=== PATIENT | male | born 1960 | race Caucasian/White ===

== ENCOUNTER 2018-02-24 10:12 | Inpatient (IN) | payer MEDICAID ==
[2018-02-24] MEDS ORDERED: Sodium Chloride 0.9% 2.5 ML Syringe FLUSH PRN (10:21)
[2018-02-24] MEDS ORDERED: Sodium Chloride 0.9% 10 ML Syringe FLUSH PRN (10:21)
[2018-02-24] MEDS ORDERED: MVI, Adult with Vitamin K 10 ML, Thiamine 100 MG, Folic Acid 1 MG in Sodium Chloride 0.... IV ONE ×4 (10:24)
--- NOTE | 2018-02-24 10:39 | CR ---
EXAMINATION: Portable chest radiograph. HISTORY: Shortness of breath. FINDINGS: The trachea is midline. The cardiomediastinal silhouette is within normal limits. There is a moderate to large right pleural effusion. Mild interstitial prominence bilaterally most notable within the apices. Osseous structures appear unremarkable. IMPRESSION: 1. Moderate to large right pleural effusion. 2. An underlying infectious process is also not excluded.
[2018-02-24] MEDS ORDERED: Magnesium Sulfate/Water 2 GM in Premix Bag 1 BAG IV ONE (10:40)
[2018-02-24] MEDS ORDERED: Nicotine 14 MG/24 Hr Patch TRDERM ONE (11:25)
[2018-02-24 11:33] LABS: CHLORIDE,CL 84 mmol/L (98-107)
[2018-02-24 11:34] LABS: SODIUM,NA 117 mmol/L (136-148)
--- NOTE | 2018-02-24 11:34 | EDM.PDOC ---
ED HPI GENERAL MEDICAL PROBLEM - General Chief Complaint: Respiratory Problem Stated Complaint: DIFF BREATHING Time Seen by Provider: 02/24/18 10:16 Source of Information: Reports: Patient, Family History Limitations: Reports: No Limitations - History of Present Illness INITIAL COMMENTS - FREE TEXT/NARRATIVE: History of present illness: []Patient was brought in by EMS and his sister complaining of inability to walk secondary to weakness, shortness of breath, cough, and inability to eat. Patient is an alcoholic. He states he has not seen a primary doctor in years. Review of systems: As per history of present illness and below otherwise all systems reviewed and negative. Past medical history: As per history of present illness and as reviewed below otherwise noncontributory. Surgical history: As per history of present illness and as reviewed below otherwise noncontributory. Social history: No reported history of drug or alcohol abuse. Family history: As per history of present illness and as reviewed below otherwise noncontributory. Physical exam: General: Well developed, thin, cachectic, pale HEENT: Atraumatic, normocephalic, pupils reactive, negative for conjunctival pallor or scleral icterus, mucous membranes dry, lips cracked throat clear, neck supple, nontender, trachea midline. Lungs: Rhonchi bilaterally, no respiratory distress Heart: S1S2, regular, negative for clicks, rubs, or JVD. Abdomen: NABS, Soft, nondistended, nontender. Negative for masses or hepatosplenomegaly. Negative for costovertebral tenderness. Pelvis: Stable nontender. Genitourinary: Deferred. Rectal: Deferred. Extremities: Atraumatic, negative for cords or calf pain. Neurovascular unremarkable. Neuro: Awake, alert, oriented. Cranial nerves II through XII unremarkable. Cerebellum unremarkable. Motor and sensory unremarkable throughout. Exam nonfocal. Skin:warm and dry, poor turgor Diagnostics: CBC, EKG, chemistry, chest x-ray, lactate, alcohol level, lipase, magnesium, phosphorus, UA Therapeutics: IV hydration ED Course: Unremarkable Impression: Hyponatremia, dehydration, right pleural effusion, failure to thrive Prescriptions: None Plan: Admit to hospitalist service for correction of sodium levels, hydration and further evaluation of pleural effusion Definitive disposition and diagnosis as appropriate pending reevaluation and review of above. Right Back Pain Score (Numeric/FACES): 0 - Related Data Allergies Allergy/AdvReac Type Severity Reaction Status Date / Time No Known Allergies Allergy Verified 02/24/18 10:20 Home Meds: Home Meds Albuterol [Ventolin HFA] 2 puff Q4HR 02/24/18 [History] Fluticasone/Salmeterol [Advair 250-50 Diskus] 1 puff BID 02/24/18 [History] Ipratropium/Albuterol Sulfate [Iprat-Albut 0.5-3(2.5) MG/3 ML] 1 ampule Q6HR [History] Past Medical History - Past Health History Medical/Surgical History: Denies Medical/Surgical History Respiratory History: Reports: COPD Social & Family History - Family History Family Medical History: Noncontributory - Tobacco Use Smoking Status *Q: Current Every Day Smoker Years of Tobacco use: 45 Packs/Tins Daily: 3 - Recreational Drug Use Recreational Drug Use: No ED ROS GENERAL - Review of Systems Review Of Systems: ROS reveals no pertinent complaints other than HPI. ED EXAM, GENERAL - Physical Exam Exam: See Below (See history of present illness) Course - Vital Signs Last Recorded V/S: Last Vital Signs Temp 98.6 F 02/24/18 11:55 Pulse 86 02/24/18 11:55 Resp 24 H 02/24/18 11:55 BP 129/89 02/24/18 11:55 Pulse Ox 93 L 02/24/18 11:55 - Orders/Labs/Meds Orders: Active Orders 24 hr Category Date Time Status Cardiac Monitoring [RC] . DIRECTED Care 02/24/18 10:22 Active EKG Documentation Completion [RC] STAT Care 02/24/18 10:21 Active CULTURE BLOOD [BC] Stat Lab 02/24/18 10:35 Received CULTURE BLOOD [BC] Stat Lab 02/24/18 10:42 Received CULTURE URINE [RM] Routine Lab 02/24/18 13:19 Ordered Sodium Chloride 0.9% [Saline Flush] Med 02/24/18 10:21 Active 10 ml FLUSH ASDIRECTED PRN Sodium Chloride 0.9% [Saline Flush] Med 02/24/18 10:21 Active 2.5 ml FLUSH ASDIRECTED PRN Blood Culture x2 Reflex Set [OM.PC] Stat Oth 02/24/18 10:22 Ordered Saline Lock Insert [OM.PC] Stat Oth 02/24/18 10:21 Ordered Medication Orders Acetaminophen (Tylenol) 650 mg PO Q4H PRN PRN Reason: Pain (mild 1-3) Albuterol/Ipratropium (Duoneb 3.0-0.5 Mg/3 Ml) 3 ml NEB Q4HRRT PRN PRN Reason: Shortness Of Breath/wheezing Docusate Sodium (Colace) 100 mg PO BID PRN PRN Reason: Constipation Folic Acid (Folic Acid) 1 mg PO BEDTIME RAFAL Sodium Chloride (Normal Saline) 1,000 mls @ 100 mls/hr IV ASDIRECTED RAFAL Lorazepam (Ativan) 0 mg IVPUSH Q4H PRN; Protocol PRN Reason: CIWAA Morphine Sulfate (Morphine) 2 mg IVPUSH Q2H PRN PRN Reason: Pain (severe 7-10) Nicotine (Habitrol) 21 mg TRDERM DAILY RAFAL Ondansetron HCl (Zofran) 4 mg IVPUSH Q4H PRN PRN Reason: Nausea Pantoprazole Sodium (Protonix Iv) 40 mg IVPUSH Q24H RAFAL Fluticasone/Salmeterol (Advair Diskus 250-50) 1 puff INH BID RAFAL Sodium Chloride (Saline Flush) 10 ml FLUSH ASDIRECTED PRN PRN Reason: Keep Vein Open Sodium Chloride (Saline Flush) 2.5 ml FLUSH ASDIRECTED PRN PRN Reason: Keep Vein Open Thiamine HCl (Vitamin B-1) 100 mg PO BEDTIME [facility] Labs: Laboratory Tests 02/24/18 02/24/18 02/24/18 Range/Units 10:35 10:35 10:35 WBC 8.86 (4.0-11.0) K/uL RBC 3.43 L (4.50-5.90) M/uL Hgb 11.3 L (13.0-17.0) g/dL Hct 32.1 L (38.0-50.0) % MCV 93.6 (80.0-98.0) fL MCH 32.9 H (27.0-32.0) pg MCHC 35.2 (31.0-37.0) g/dL RDW Std Deviation 46.2 (28.0-62.0) fl RDW Coeff of Sage 14 (11.0-15.0) % Plt Count 172 (150-400) K/uL MPV 10.00 (7.40-12.00) fL Neut % (Auto) 82.7 H (48.0-80.0) % Lymph % (Auto) 10.5 L (16.0-40.0) % [place] % (Auto) 5.9 (0.0-15.0) % Eos % (Auto) 0.7 (0.0-7.0) % Baso % (Auto) 0.2 (0.0-1.5) % Neut # (Auto) 7.3 H (1.4-5.7) K/uL Lymph # (Auto) 0.9 (0.6-2.4) K/uL [place] # (Auto) 0.5 (0.0-0.8) K/uL Eos # (Auto) 0.1 (0.0-0.7) K/uL Baso # (Auto) 0.0 (0.0-0.1) K/uL Nucleated RBC % 0.0 /100WBC Nucleated RBCs # 0 K/uL INR APTT (18.6-31.3) SEC Lactate (0.20-2.00) mmol/L Sodium 117 L* (136-148) mmol/L Potassium 3.8 (3.5-5.1) mmol/L Chloride 84 L (98-107) mmol/L Carbon Dioxide 20.9 L (21.0-32.0) mmol/L BUN 6 L (7.0-18.0) mg/dL Creatinine 0.6 L (0.8-1.3) mg/dL Est Cr Clr Drug Dosing TNP Estimated GFR (MDRD) > 60.0 ml/min Glucose 103 (74-106) mg/dL Calcium 8.1 L (8.5-10.1) mg/dL Phosphorus (2.6-4.7) mg/dL Magnesium (1.8-2.4) mg/dL Total Bilirubin 0.8 (0.2-1.0) mg/dL AST 55 H (15-37) IU/L ALT 50 (14-63) IU/L Alkaline Phosphatase 62 (46-116) U/L Creatine Kinase (26-308) U/L B-Natriuretic Peptide (<100) PG/ML Total Protein 5.4 L (6.4-8.2) g/dL Albumin 2.0 L (3.4-5.0) g/dL Globulin 3.4 (2.6-4.0) g/dL Albumin/Globulin Ratio 0.6 L (0.9-1.6) Lipase 163 (73-393) U/L Ethyl Alcohol mg/dL 02/24/18 02/24/18 02/24/18 Range/Units 10:35 10:35 10:35 WBC (4.0-11.0) K/uL RBC (4.50-5.90) M/uL Hgb (13.0-17.0) g/dL Hct (38.0-50.0) % MCV (80.0-98.0) fL MCH (27.0-32.0) pg MCHC (31.0-37.0) g/dL RDW Std Deviation (28.0-62.0) fl RDW Coeff of Sage (11.0-15.0) % Plt Count (150-400) K/uL MPV (7.40-12.00) fL Neut % (Auto) (48.0-80.0) % Lymph % (Auto) (16.0-40.0) % [place] % (Auto) (0.0-15.0) % Eos % (Auto) (0.0-7.0) % Baso % (Auto) (0.0-1.5) % Neut # (Auto) (1.4-5.7) K/uL Lymph # (Auto) (0.6-2.4) K/uL [place] # (Auto) (0.0-0.8) K/uL Eos # (Auto) (0.0-0.7) K/uL Baso # (Auto) (0.0-0.1) K/uL Nucleated RBC % /100WBC Nucleated RBCs # K/uL INR APTT (18.6-31.3) SEC Lactate (0.20-2.00) mmol/L Sodium (136-148) mmol/L Potassium (3.5-5.1) mmol/L Chloride (98-107) mmol/L Carbon Dioxide (21.0-32.0) mmol/L BUN (7.0-18.0) mg/dL Creatinine (0.8-1.3) mg/dL Est Cr Clr Drug Dosing Estimated GFR (MDRD) ml/min Glucose (74-106) mg/dL Calcium (8.5-10.1) mg/dL Phosphorus 3.1 (2.6-4.7) mg/dL Magnesium 1.9 (1.8-2.4) mg/dL Total Bilirubin (0.2-1.0) mg/dL AST (15-37) IU/L ALT (14-63) IU/L Alkaline Phosphatase (46-116) U/L Creatine Kinase (26-308) U/L B-Natriuretic Peptide 114 H (<100) PG/ML Total Protein (6.4-8.2) g/dL Albumin (3.4-5.0) g/dL Globulin (2.6-4.0) g/dL Albumin/Globulin Ratio (0.9-1.6) Lipase (73-393) U/L Ethyl Alcohol < 3.0 mg/dL 02/24/18 02/24/18 02/24/18 Range/Units 10:35 10:35 10:35 WBC (4.0-11.0) K/uL RBC (4.50-5.90) M/uL Hgb (13.0-17.0) g/dL Hct (38.0-50.0) % MCV (80.0-98.0) fL MCH (27.0-32.0) pg MCHC (31.0-37.0) g/dL RDW Std Deviation (28.0-62.0) fl RDW Coeff of Sage (11.0-15.0) % Plt Count (150-400) K/uL MPV (7.40-12.00) fL Neut % (Auto) (48.0-80.0) % Lymph % (Auto) (16.0-40.0) % [place] % (Auto) (0.0-15.0) % Eos % (Auto) (0.0-7.0) % Baso % (Auto) (0.0-1.5) % Neut # (Auto) (1.4-5.7) K/uL Lymph # (Auto) (0.6-2.4) K/uL [place] # (Auto) (0.0-0.8) K/uL Eos # (Auto) (0.0-0.7) K/uL Baso # (Auto) (0.0-0.1) K/uL Nucleated RBC % /100WBC Nucleated RBCs # K/uL INR 1.19 APTT 26.8 (18.6-31.3) SEC Lactate (0.20-2.00) mmol/L Sodium (136-148) mmol/L Potassium (3.5-5.1) mmol/L Chloride (98-107) mmol/L Carbon Dioxide (21.0-32.0) mmol/L BUN (7.0-18.0) mg/dL Creatinine (0.8-1.3) mg/dL Est Cr Clr Drug Dosing Estimated GFR (MDRD) ml/min Glucose (74-106) mg/dL Calcium (8.5-10.1) mg/dL Phosphorus (2.6-4.7) mg/dL Magnesium (1.8-2.4) mg/dL Total Bilirubin (0.2-1.0) mg/dL AST (15-37) IU/L ALT (14-63) IU/L Alkaline Phosphatase (46-116) U/L Creatine Kinase 64 (26-308) U/L B-Natriuretic Peptide (<100) PG/ML Total Protein (6.4-8.2) g/dL Albumin (3.4-5.0) g/dL Globulin (2.6-4.0) g/dL Albumin/Globulin Ratio (0.9-1.6) Lipase (73-393) U/L Ethyl Alcohol mg/dL Meds: Medications Generic Name Dose Route Start Last Admin Trade Name Freq PRN Reason Stop Dose Admin Acetaminophen 650 mg 02/24/18 12:40 Tylenol PO Q4H PRN Pain (mild 1-3) Albuterol/Ipratropium 3 ml 02/24/18 12:41 Duoneb 3.0-0.5 Mg/3 Ml NEB Q4HRRT PRN Shortness Of Breath/wheezing Docusate Sodium 100 mg 02/24/18 12:41 Colace PO BID PRN Constipation Folic Acid 1 mg 02/24/18 21:00 Folic Acid PO BEDTIME RAFAL Sodium Chloride 1,000 mls @ 100 mls/hr 02/24/18 12:45 Normal Saline IV ASDIRECTED RAFAL Lorazepam 0 mg 02/24/18 13:58 Ativan IVPUSH Q4H PRN CIWAA Protocol Morphine Sulfate 2 mg 02/24/18 12:40 Morphine IVPUSH Q2H PRN Pain (severe 7-10) Nicotine 21 mg 02/25/18 09:00 Habitrol TRDERM DAILY RAFAL Ondansetron HCl 4 mg 02/24/18 12:41 Zofran IVPUSH Q4H PRN Nausea Pantoprazole Sodium 40 mg 02/24/18 15:15 Protonix Iv IVPUSH Q24H RAFAL Fluticasone/Salmeterol 1 puff 02/24/18 21:00 Advair Diskus 250-50 INH BID RAFAL Sodium Chloride 10 ml 02/24/18 10:21 Saline Flush FLUSH ASDIRECTED PRN Keep Vein Open Sodium Chloride 2.5 ml 02/24/18 10:21 Saline Flush FLUSH ASDIRECTED PRN Keep Vein Open Thiamine HCl 100 mg 02/24/18 21:00 Vitamin B-1 PO BEDTIME RAFAL Discontinued Medications Generic Name Dose Route Start Last Admin Trade Name Freq PRN Reason Stop Dose Admin Multivitamins/Minerals 10 ml/ 1,011.2 mls @ 999 mls/hr 02/24/18 10:24 11:06 Thiamine HCl 100 mg/ Folic IV 02/24/18 11:24 999 mls/hr Acid 1 mg/ Sodium Chloride ONETIME ONE Administration Magnesium Sulfate 2 gm/ Premix 50 mls @ 25 mls/hr 02/24/18 10:40 02/24/18 11: 06 IV 02/24/18 12:39 25 mls/hr ONETIME ONE Administration Nicotine 14 mg 02/24/18 11:25 02/24/18 11:34 Habitrol TRDERM 02/24/18 11:26 14 mg ONETIME ONE Administration Potassium Chloride 40 meq 02/24/18 14:56 Klor-Con M20 PO 02/24/18 14:57 ONETIME ONE Departure - Departure Time of Disposition: 15:12 Disposition: Admitted As Inpatient 64 Condition: Fair Clinical Impression: Hyponatremia, Dehydration, Recurrent right pleural effusion, Failure to thrive - Discharge Information - My Orders Last 24 Hours: My Active Orders 02/24/18 10:21 EKG Documentation Completion [RC] STAT Sodium Chloride 0.9% [Saline Flush] 10 ml FLUSH ASDIRECTED PRN Sodium Chloride 0.9% [Saline Flush] 2.5 ml FLUSH ASDIRECTED PRN Saline Lock Insert [OM.PC] Stat 02/24/18 10:22 Cardiac Monitoring [RC] . DIRECTED Blood Culture x2 Reflex Set [OM.PC] Stat 02/24/18 10:35 CULTURE BLOOD [BC] Stat 02/24/18 10:42 CULTURE BLOOD [BC] Stat 02/24/18 13:19 CULTURE URINE [RM] Routine - Assessment/Plan Last 24 Hours: My Active Orders 02/24/18 10:21 EKG Documentation Completion [RC] STAT Sodium Chloride 0.9% [Saline Flush] 10 ml FLUSH ASDIRECTED PRN Sodium Chloride 0.9% [Saline Flush] 2.5 ml FLUSH ASDIRECTED PRN Saline Lock Insert [OM.PC] Stat 02/24/18 10:22 Cardiac Monitoring [RC] . DIRECTED Blood Culture x2 Reflex Set [OM.PC] Stat 02/24/18 10:35 CULTURE BLOOD [BC] Stat 02/24/18 10:42 CULTURE BLOOD [BC] Stat 02/24/18 13:19 CULTURE URINE [RM] Routine
--- NOTE | 2018-02-24 12:30 | PCM.HP ---
H&P History of Present Illness - General Date of Service: 02/24/18 Admit Problem/Dx: Admission Diagnosis/Problem Admission Diagnosis/Problem Hyponatremia Source of Information: Patient, Family (Sisters at bedside) History Limitations: Reports: No Limitations - History of Present Illness Initial Comments - Free Text/Narative: This 57 year old male with pmh of DVT, COPD, tobacco use and alcohol abuse presented to the ED today via EMS after his sister found him on the floor. He reports he was on the floor overnight because he was was so weak that he was unable to walk or get up. He reports he has been short of breath for "awhile", months possibly. He has not been eating over the last week and has not eaten much over the last month or two either, per history of sisters at bedside. He reports right sided chest pain when he coughs. He has productive cough with yellow phlegm, no blood. He Denies abdominal pain, urinary concerns. Does report diarrhea, "all the time". He reports some ankle and feet swelling. NO headache. No confusion noted per family. He has smoked for 50+ years and currently smokes 2 ppd. Drinks 5-7 beers daily. In the ED, CBC WNL. Na 117, Cl 84, Bicarb 20.9, Phosphorus 3.1, Mg 1.9. Bili 0.8. He was noted to be dyspneic, but satting 98% on RA. CXR obtained which revealed moderate to large pleural effusion with possible underlying infectious process. Admission recommended for hyponatremia, failure to thrive and pleural effusion. Right Back Pain Score (Numeric/FACES): 0 - Related Data Allergies/Adverse Reactions: Allergies Allergy/AdvReac Type Severity Reaction Status Date / Time No Known Allergies Allergy Verified 02/24/18 10:20 Home Medications: Home Meds Albuterol [Ventolin HFA] 2 puff Q4HR 02/24/18 [History] Fluticasone/Salmeterol [Advair 250-50 Diskus] 1 puff BID 02/24/18 [History] Ipratropium/Albuterol Sulfate [Iprat-Albut 0.5-3(2.5) MG/3 ML] 1 ampule Q6HR [History] Past Medical History - Past Health History Medical/Surgical History: Denies Medical/Surgical History Respiratory History: Reports: COPD Gastrointestinal History: Reports: None. Denies: GERD, GI Bleed Musculoskeletal History: Reports: Fracture (ankle) Psychiatric History: Reports: Addiction Oncologic (Cancer) History: Reports: None - Infectious Disease History Infectious Disease History: Reports: None - Past Surgical History Musculoskeletal Surgical History: Reports: Other (See Below) (ankle fracture, ORIF) Social & Family History - Family History Family Medical History: Noncontributory - Tobacco Use Smoking Status *Q: Current Every Day Smoker Years of Tobacco use: 45 Packs/Tins Daily: 2 Smoking Cessation Information Provided To Patient: Yes (would like prescription for nicotine patches) - Alcohol Use Alcohol Use History: Yes Days Per Week of Alcohol Use: 7 Number of Drinks Per Day: 7 Total Drinks Per Week: 49 Alcohol Use Frequency: Daily - Recreational Drug Use Recreational Drug Use: No - Living Situation & Occupation Living situation: Reports: Single, with Family (sister) Occupation: Disabled H&P Review of Systems - Review of Systems: Review Of Systems: See Below General: Reports: Malaise, Weakness, Decreased Appetite, Weight Loss (he feels he hasn't lost, but sisters report he has lost a lot of weight). Denies: Fever , Chills HEENT: Reports: No Symptoms. Denies: Headaches, Sinus Congestion, Sore Throat, Vertigo Pulmonary: Reports: Shortness of Breath, Pleuritic Chest Pain, Cough, Sputum. Denies: Hemoptysis Cardiovascular: Reports: Dyspnea on Exertion, Lightheadedness. Denies: Chest Pain Gastrointestinal: Reports: Anorexia, Diarrhea. Denies: Abdominal Pain, Black Stool, Bloody Stool, Nausea, Vomiting Genitourinary: Reports: No Symptoms. Denies: Dysuria, Frequency, Burning, Pain Musculoskeletal: Reports: Back Pain (R upper back) Skin: Reports: No Symptoms Psychiatric: Reports: No Symptoms Neurological: Reports: No Symptoms Hematologic/Lymphatic: Reports: No Symptoms Immunologic: Reports: No Symptoms Exam - Exam Exam: See Below - Vital Signs Vital Signs: Last Vital Signs Temp 98.6 F 02/24/18 11:55 Pulse 86 02/24/18 11:55 Resp 24 H 02/24/18 11:55 BP 129/89 02/24/18 11:55 Pulse Ox 93 L 02/24/18 11:55 - Exam Quality Assessment: Supplemental Oxygen General: Alert, Oriented, Cooperative, Other (older than stated age, cachectic in appearance and unkept.) HEENT: Conjunctiva Clear, Posterior Pharynx Clear, Pupils Equal, Other (poor dentition). No: Mucosa Moist & [place] (dry) Neck: Supple, Trachea Midline, Full Range of Motion Lungs: Decreased Breath Sounds (R side), Rhonchi (throughout) Cardiovascular: Regular Rate, Regular Rhythm, Normal S1, Normal S2. No: Systolic Murmur GI/Abdominal Exam: Normal Bowel Sounds, Soft, Non-Tender Back Exam: Normal Inspection, Full Range of Motion Extremities: Normal Inspection, Normal Range of Motion, Non-Tender, No Pedal Edema Skin: Warm, Dry Neurological: Cranial Nerves Intact Neuro Extensive - Mental Status: Alert, Oriented x3, Normal Mood/Affect, Normal Cognition Psychiatric: Alert, Normal Affect, Normal Mood, Agitated (easily agitated with questioning process.) - Patient Data Lab Results Last 24 hrs: Laboratory Results - last 24 hr 02/24/18 02/24/18 02/24/18 Range/Units 10:35 10:35 10:35 WBC 8.86 (4.0-11.0) K/uL RBC 3.43 L (4.50-5.90) M/uL Hgb 11.3 L (13.0-17.0) g/dL Hct 32.1 L (38.0-50.0) % MCV 93.6 (80.0-98.0) fL MCH 32.9 H (27.0-32.0) pg MCHC 35.2 (31.0-37.0) g/dL RDW Std Deviation 46.2 (28.0-62.0) fl RDW Coeff of Sage 14 (11.0-15.0) % Plt Count 172 (150-400) K/uL MPV 10.00 (7.40-12.00) fL Neut % (Auto) 82.7 H (48.0-80.0) % Lymph % (Auto) 10.5 L (16.0-40.0) % Love % (Auto) 5.9 (0.0-15.0) % Eos % (Auto) 0.7 (0.0-7.0) % Baso % (Auto) 0.2 (0.0-1.5) % Neut # (Auto) 7.3 H (1.4-5.7) K/uL Lymph # (Auto) 0.9 (0.6-2.4) K/uL Love # (Auto) 0.5 (0.0-0.8) K/uL Eos # (Auto) 0.1 (0.0-0.7) K/uL Baso # (Auto) 0.0 (0.0-0.1) K/uL Nucleated RBC % 0.0 /100WBC Nucleated RBCs # 0 K/uL INR APTT (18.6-31.3) SEC Lactate (0.20-2.00) mmol/L Sodium 117 L* (136-148) mmol/L Potassium 3.8 (3.5-5.1) mmol/L Chloride 84 L (98-107) mmol/L Carbon Dioxide 20.9 L (21.0-32.0) mmol/L BUN 6 L (7.0-18.0) mg/dL Creatinine 0.6 L (0.8-1.3) mg/dL Est Cr Clr Drug Dosing TNP Estimated GFR (MDRD) > 60.0 ml/min Glucose 103 (74-106) mg/dL Calcium 8.1 L (8.5-10.1) mg/dL Phosphorus (2.6-4.7) mg/dL Magnesium (1.8-2.4) mg/dL Total Bilirubin 0.8 (0.2-1.0) mg/dL AST 55 H (15-37) IU/L ALT 50 (14-63) IU/L Alkaline Phosphatase 62 (46-116) U/L B-Natriuretic Peptide (<100) PG/ML Total Protein 5.4 L (6.4-8.2) g/dL Albumin 2.0 L (3.4-5.0) g/dL Globulin 3.4 (2.6-4.0) g/dL Albumin/Globulin Ratio 0.6 L (0.9-1.6) Lipase 163 (73-393) U/L Ethyl Alcohol mg/dL 02/24/18 02/24/18 02/24/18 Range/Units 10:35 10:35 10:35 WBC (4.0-11.0) K/uL RBC (4.50-5.90) M/uL Hgb (13.0-17.0) g/dL Hct (38.0-50.0) % MCV (80.0-98.0) fL MCH (27.0-32.0) pg MCHC (31.0-37.0) g/dL RDW Std Deviation (28.0-62.0) fl RDW Coeff of Sage (11.0-15.0) % Plt Count (150-400) K/uL MPV (7.40-12.00) fL Neut % (Auto) (48.0-80.0) % Lymph % (Auto) (16.0-40.0) % Love % (Auto) (0.0-15.0) % Eos % (Auto) (0.0-7.0) % Baso % (Auto) (0.0-1.5) % Neut # (Auto) (1.4-5.7) K/uL Lymph # (Auto) (0.6-2.4) K/uL Love # (Auto) (0.0-0.8) K/uL Eos # (Auto) (0.0-0.7) K/uL Baso # (Auto) (0.0-0.1) K/uL Nucleated RBC % /100WBC Nucleated RBCs # K/uL INR APTT (18.6-31.3) SEC Lactate (0.20-2.00) mmol/L Sodium (136-148) mmol/L Potassium (3.5-5.1) mmol/L Chloride (98-107) mmol/L Carbon Dioxide (21.0-32.0) mmol/L BUN (7.0-18.0) mg/dL Creatinine (0.8-1.3) mg/dL Est Cr Clr Drug Dosing Estimated GFR (MDRD) ml/min Glucose (74-106) mg/dL Calcium (8.5-10.1) mg/dL Phosphorus 3.1 (2.6-4.7) mg/dL Magnesium 1.9 (1.8-2.4) mg/dL Total Bilirubin (0.2-1.0) mg/dL AST (15-37) IU/L ALT (14-63) IU/L Alkaline Phosphatase (46-116) U/L B-Natriuretic Peptide 114 H (<100) PG/ML Total Protein (6.4-8.2) g/dL Albumin (3.4-5.0) g/dL Globulin (2.6-4.0) g/dL Albumin/Globulin Ratio (0.9-1.6) Lipase (73-393) U/L Ethyl Alcohol < 3.0 mg/dL 02/24/18 02/24/18 Range/Units 10:35 10:35 WBC (4.0-11.0) K/uL RBC (4.50-5.90) M/uL Hgb (13.0-17.0) g/dL Hct (38.0-50.0) % MCV (80.0-98.0) fL MCH (27.0-32.0) pg MCHC (31.0-37.0) g/dL RDW Std Deviation (28.0-62.0) fl RDW Coeff of Sage (11.0-15.0) % Plt Count (150-400) K/uL MPV (7.40-12.00) fL Neut % (Auto) (48.0-80.0) % Lymph % (Auto) (16.0-40.0) % Love % (Auto) (0.0-15.0) % Eos % (Auto) (0.0-7.0) % Baso % (Auto) (0.0-1.5) % Neut # (Auto) (1.4-5.7) K/uL Lymph # (Auto) (0.6-2.4) K/uL Love # (Auto) (0.0-0.8) K/uL Eos # (Auto) (0.0-0.7) K/uL Baso # (Auto) (0.0-0.1) K/uL Nucleated RBC % /100WBC Nucleated RBCs # K/uL INR 1.19 APTT 26.8 (18.6-31.3) SEC Lactate (0.20-2.00) mmol/L Sodium (136-148) mmol/L Potassium (3.5-5.1) mmol/L Chloride (98-107) mmol/L Carbon Dioxide (21.0-32.0) mmol/L BUN (7.0-18.0) mg/dL Creatinine (0.8-1.3) mg/dL Est Cr Clr Drug Dosing Estimated GFR (MDRD) ml/min Glucose (74-106) mg/dL Calcium (8.5-10.1) mg/dL Phosphorus (2.6-4.7) mg/dL Magnesium (1.8-2.4) mg/dL Total Bilirubin (0.2-1.0) mg/dL AST (15-37) IU/L ALT (14-63) IU/L Alkaline Phosphatase (46-116) U/L B-Natriuretic Peptide (<100) PG/ML Total Protein (6.4-8.2) g/dL Albumin (3.4-5.0) g/dL Globulin (2.6-4.0) g/dL Albumin/Globulin Ratio (0.9-1.6) Lipase (73-393) U/L Ethyl Alcohol mg/dL Result Diagrams: 02/24/18 10:35 02/24/18 10:35 *Q Meaningful Use (ADM) - VTE Risk Assess *Q Each Risk Factor Represents 1 Point: Age 41 - 59 years Total Score 1 Point Risk Factors: 1 Each Risk Factor Represents 2 Points: None Total Score 2 Point Risk Factors: 0 Each Risk Factor Represents 3 Points: History of DVT/PE Total Score 3 Point Risk Factors: 3 Each Risk Factor Represents 5 Points: None Total Score 5 Point Risk Factors: 0 Venous Thromboembolism Risk Factor Score *Q: 4 - Problem List (1) Hyponatremia SNOMED Code(s): 96403597 ICD Code: E87.1 - HYPO-OSMOLALITY AND HYPONATREMIA Status: Acute Current Visit: Yes (2) Pleural effusion SNOMED Code(s): 58271451 ICD Code: J90 - PLEURAL EFFUSION, NOT ELSEWHERE CLASSIFIED Status: Acute Current Visit: Yes (3) Dyspnea SNOMED Code(s): 855206439 ICD Code: R06.00 - DYSPNEA, UNSPECIFIED Status: Acute Current Visit: Yes (4) Generalized weakness SNOMED Code(s): 14350789 ICD Code: R53.1 - WEAKNESS Status: Acute Current Visit: Yes (5) Protein malnutrition SNOMED Code(s): 204495493 ICD Code: E46 - UNSPECIFIED PROTEIN-CALORIE MALNUTRITION Status: Acute Current Visit: Yes (6) Failure to thrive in adult SNOMED Code(s): 180913363 ICD Code: R62.7 - ADULT FAILURE TO THRIVE Status: Acute Current Visit: Yes (7) Alcohol abuse SNOMED Code(s): 05071815 ICD Code: F10.10 - ALCOHOL ABUSE, UNCOMPLICATED Status: Chronic Current Visit: Yes (8) Hx of deep venous thrombosis SNOMED Code(s): 726662465 ICD Code: Z86.718 - PERSONAL HISTORY OF OTHER VENOUS THROMBOSIS AND EMBOLISM Status: Chronic Current Visit: Yes (9) COPD (chronic obstructive pulmonary disease) SNOMED Code(s): 33017722 ICD Code: J44.9 - CHRONIC OBSTRUCTIVE PULMONARY DISEASE, UNSPECIFIED Status : Chronic Current Visit: Yes (10) Tobacco abuse SNOMED Code(s): 141444975 ICD Code: Z72.0 - TOBACCO USE Status: Chronic Current Visit: Yes Problem List Initiated/Reviewed/Updated: Yes Orders Last 24hrs: Active Orders 24 hr Category Date Time Status Patient Status [ADT] Stat ADT 02/24/18 12:11 Active Cardiac Monitoring [RC] . DIRECTED Care 02/24/18 10:22 Active EKG Documentation Completion [RC] STAT Care 02/24/18 10:21 Active CPK [CREATINE KINASE,CK] [CHEM] Stat Lab 02/24/18 12:23 Ordered CULTURE BLOOD [BC] Stat Lab 02/24/18 10:35 Received CULTURE BLOOD [BC] Stat Lab 02/24/18 10:42 Received CULTURE URINE [RM] Routine Lab 02/24/18 10:23 Ordered UA W/MICROSCOPIC [URIN] Stat Lab 02/24/18 10:23 Ordered Magnesium Sulfate/Water [Magnesium Sulfate 2 GM in Med 02/24/18 10:40 Active Water 50 ML] 2 gm Premix Bag 1 bag IV ONETIME Sodium Chloride 0.9% [Saline Flush] Med 02/24/18 10:21 Active 10 ml FLUSH ASDIRECTED PRN Sodium Chloride 0.9% [Saline Flush] Med 02/24/18 10:21 Active 2.5 ml FLUSH ASDIRECTED PRN Blood Culture x2 Reflex Set [OM.PC] Stat Oth 02/24/18 10:22 Ordered Saline Lock Insert [OM.PC] Stat Oth 02/24/18 10:21 Ordered Medication Orders Magnesium Sulfate 2 gm/ Premix 50 mls @ 25 mls/hr IV ONETIME ONE Stop: 02/24/18 12:39 Last Admin: 02/24/18 11:06 Dose: 25 mls/hr Sodium Chloride (Saline Flush) 10 ml FLUSH ASDIRECTED PRN PRN Reason: Keep Vein Open Sodium Chloride (Saline Flush) 2.5 ml FLUSH ASDIRECTED PRN PRN Reason: Keep Vein Open Assessment/Plan Comment:: This 57 year old male admitted with R sided pleural effusion and hyponatremia 1. Pleural effusion: WIll have diagnostic and therapeutic thoracentesis. Will analyze fluid. Will also obtain Chest CT with contrast once pleural effusion is drained to further evaluate. concerned for malignant process due smoking history , CHF less likely. Will hold off on antibiotics currently, no definite infectious process noted. Continue to watch labs and pleural fluid. 2. Hyponatremia: Will check Na every 4 hours, slow NS infusion. Could be linked to alcoholism and poor oral intake or SIADH if malignancy is present. PT to evaluate and treat for weakness once hyponatremia resolves. 3. Alcohol abuse: Place on CIWAA protocol. Supplement with Folic acid and Thiamine daily. 4. Tobacco abuse: Nicotine patch, would like to quit and wants prescription for patch on discharge. 5. COPD: Reports no inhalers at home, but does have nebulizers. Continue Duoneb PRN. VTE prophylaxis: Nothing now due to thoracentesis ordered, once completed will start. Dispo: 3-4 days pending improvement
[2018-02-24] MEDS ORDERED: Acetaminophen 325 MG Tab PO PRN (12:40)
[2018-02-24] MEDS ORDERED: Docusate Sodium 100 MG Cap PO PRN (12:41)
[2018-02-24] MEDS ORDERED: Ondansetron 4 MG/2 ML SDV IVPUSH PRN (12:41)
[2018-02-24] MEDS ORDERED: Albuterol/Ipratropium 3.0-0.5 MG/3 ML Neb Soln NEB PRN (12:41)
[2018-02-24] MEDS ORDERED: Sodium Chloride 0.9% 1,000 ML IV SCH (12:45)
[2018-02-24] MEDS ORDERED: LORazepam 2 MG/ML SDV IVPUSH PRN (13:58)
[2018-02-24 14:40] LABS: CHLORIDE,CL 86 mmol/L (98-107)
[2018-02-24 14:41] LABS: SODIUM,NA 119 mmol/L (136-148)
[2018-02-24] MEDS ORDERED: Potassium Chloride 20 MEQ Tab.ER PO ONE (14:56)
[2018-02-24] MEDS ORDERED: Iopamidol 755 MG/ML 500 ML Multipack Bottle IVPUSH STA (15:49)
--- NOTE | 2018-02-24 16:05 | CT ---
EXAMINATION: CT chest with contrast HISTORY: Dyspnea, pleural effusion COMPARISON: Same day chest radiograph TECHNIQUE: Axial CT imaging obtained through the chest following the administration of 75 mL of Isovue-370. Coronal and sagittal reconstructions obtained. FINDINGS: There is a moderate persistent right pleural effusion post thoracentesis. There is compressive atelectasis within the right lung base. There are reticular groundglass changes within the lungs bilaterally most prominent within the left upper lobe and along the left major fissure. There is a minimal left pleural effusion. The heart is normal in size without a pericardial effusion. Mild pulmonary emphysema. Thoracic aorta is normal caliber. Main pulmonary arteries are patent. Central airways are clear. Mild coronary artery calcifications. There is likely at least moderate fatty infiltration of the liver. Otherwise the visualized images of the upper abdomen appear normal. IMPRESSION: 1. Moderate persistent right pleural effusion and minimal left. 2. Compressive atelectasis is noted within the right lung base without a definite mass or nodule. 3. Reticular groundglass changes bilaterally most notable within the left upper lobe. This may represent an atypical infectious process. 4. Fatty infiltration of the liver.
[2018-02-24] MEDS: Pantoprazole 40 MG Vial IVPUSH SCH (16:06)
--- NOTE | 2018-02-24 16:15 | US ---
EXAMINATION: Ultrasound guided right thoracentesis. HISTORY: Right pleural effusion. Technique/findings: The procedure, benefits and risks were discussed with the patient. Following written informed consent was obtained from the patient, under ultrasound guidance and utilizing 1% lidocaine as local anesthesia the right pleural effusion was accessed using a 5 [place] one-step needle. Following access the catheter was placed into the effusion, 1100 cc of pleural effusion was drained. US images demonstrate a moderate residual pleural effusion. The patient tolerated the procedure well. IMPRESSION: Successful ultrasound guided right thoracentesis. Fluid was dark red.
[2018-02-24] MEDS: Levofloxacin/Dextrose 5%-Water 750 MG in Premix Bag 1 BAG IV SCH (16:42)
[2018-02-24] MEDS: Morphine 2 MG/ML Syringe IVPUSH PRN ×3 (17:53→22:02)
[2018-02-24] MEDS: Albuterol/Ipratropium 3.0-0.5 MG/3 ML Neb Soln NEB SCH ×2 (17:53→21:15)
[2018-02-24 18:20] LABS: CHLORIDE,CL 87 mmol/L (98-107)
[2018-02-24 18:23] LABS: SODIUM,NA 118 mmol/L (136-148)
[2018-02-24] MEDS: Folic Acid 1 MG Tab PO SCH (20:02)
[2018-02-24] MEDS: Thiamine 100 MG Tab PO SCH (20:02)
[2018-02-24] MEDS: oxyCODONE 5 MG Tab PO PRN (20:31)
[2018-02-24] MEDS: Benzonatate 100 MG Cap PO PRN (20:31)
[2018-02-24] MEDS: Fluticasone/Salmeterol 250-50 MCG Inhalation Powder 14/Diskus INH SCH (21:15)
[2018-02-24 22:19] LABS: CHLORIDE,CL 88 mmol/L (98-107)
[2018-02-24 22:22] LABS: SODIUM,NA 120 mmol/L (136-148)
[2018-02-25] MEDS: Morphine 2 MG/ML Syringe IVPUSH PRN ×3 (00:51→21:49)
[2018-02-25] MEDS: Albuterol/Ipratropium 3.0-0.5 MG/3 ML Neb Soln NEB SCH ×6 (01:03→21:17)
[2018-02-25] MEDS: Benzonatate 100 MG Cap PO PRN ×2 (02:13→17:01)
[2018-02-25] MEDS: oxyCODONE 5 MG Tab PO PRN ×4 (02:13→23:37)
[2018-02-25 02:31] LABS: CHLORIDE,CL 92 mmol/L (98-107); SODIUM,NA 123 mmol/L (136-148)
[2018-02-25 06:22] LABS: CHLORIDE,CL 96 mmol/L (98-107); SODIUM,NA 127 mmol/L (136-148)
--- NOTE | 2018-02-25 07:53 | PCM.PN ---
- General Info Date of Service: 02/25/18 Admission Dx/Problem (Free Text): Admission Diagnosis/Problem Admission Diagnosis/Problem Hyponatremia Subjective Update: Reports he is feeling better this morning. Some pleuritic chest pain with breathing and coughing. Dyspnea is much better. Eating better. No withdrawal symptoms. Cough continues, he reports thick phlegm. Functional Status: Reports: Pain Controlled, Tolerating Diet, Urinating. Denies : Ambulating - Review of Systems General: Reports: No Symptoms. Denies: Fever, Weakness, Fatigue Pulmonary: Reports: Pleuritic Chest Pain, Cough, Sputum. Denies: Shortness of Breath, Hemoptysis, Wheezing Cardiovascular: Reports: No Symptoms. Denies: Chest Pain Gastrointestinal: Reports: No Symptoms. Denies: Abdominal Pain, Nausea, Vomiting Genitourinary: Reports: No Symptoms. Denies: Dysuria, Frequency Musculoskeletal: Reports: No Symptoms Skin: Reports: No Symptoms Neurological: Reports: No Symptoms Psychiatric: Reports: No Symptoms - Patient Data Vitals - Most Recent: Last Vital Signs Temp 98.3 F 02/25/18 04:30 Pulse 83 02/25/18 04:30 Resp 20 02/25/18 04:30 BP 93/62 02/25/18 04:30 Pulse Ox 91 L 02/25/18 04:30 Weight - Most Recent: 61.3 kg I&O - Last 24 Hours: Intake & Output 02/24/18 02/25/18 02/25/18 22:59 06:59 14:59 Intake Total 1293 2400 Output Total 1000 3275 Balance 293 -875 Lab Results Last 24 Hours: Laboratory Results - last 24 hr 02/24/18 02/24/18 02/24/18 Range/Units 10:35 10:35 10:35 WBC 8.86 (4.0-11.0) K/uL RBC 3.43 L (4.50-5.90) M/uL Hgb 11.3 L (13.0-17.0) g/dL Hct 32.1 L (38.0-50.0) % MCV 93.6 (80.0-98.0) fL MCH 32.9 H (27.0-32.0) pg MCHC 35.2 (31.0-37.0) g/dL RDW Std Deviation 46.2 (28.0-62.0) fl RDW Coeff of Sage 14 (11.0-15.0) % Plt Count 172 (150-400) K/uL MPV 10.00 (7.40-12.00) fL Neut % (Auto) 82.7 H (48.0-80.0) % Lymph % (Auto) 10.5 L (16.0-40.0) % [place] % (Auto) 5.9 (0.0-15.0) % Eos % (Auto) 0.7 (0.0-7.0) % Baso % (Auto) 0.2 (0.0-1.5) % Neut # (Auto) 7.3 H (1.4-5.7) K/uL Lymph # (Auto) 0.9 (0.6-2.4) K/uL [place] # (Auto) 0.5 (0.0-0.8) K/uL Eos # (Auto) 0.1 (0.0-0.7) K/uL Baso # (Auto) 0.0 (0.0-0.1) K/uL Nucleated RBC % 0.0 /100WBC Nucleated RBCs # 0 K/uL INR APTT (18.6-31.3) SEC Lactate (0.20-2.00) mmol/L Sodium 117 L* (136-148) mmol/L Potassium 3.8 (3.5-5.1) mmol/L Chloride 84 L (98-107) mmol/L Carbon Dioxide 20.9 L (21.0-32.0) mmol/L BUN 6 L (7.0-18.0) mg/dL Creatinine 0.6 L (0.8-1.3) mg/dL Est Cr Clr Drug Dosing TNP Estimated GFR (MDRD) > 60.0 ml/min Glucose 103 (74-106) mg/dL Calcium 8.1 L (8.5-10.1) mg/dL Phosphorus (2.6-4.7) mg/dL Magnesium (1.8-2.4) mg/dL Total Bilirubin 0.8 (0.2-1.0) mg/dL AST 55 H (15-37) IU/L ALT 50 (14-63) IU/L Alkaline Phosphatase 62 (46-116) U/L Lactate Dehydrogenase (81-234) U/L Creatine Kinase (26-308) U/L B-Natriuretic Peptide (<100) PG/ML Total Protein 5.4 L (6.4-8.2) g/dL Albumin 2.0 L (3.4-5.0) g/dL Globulin 3.4 (2.6-4.0) g/dL Albumin/Globulin Ratio 0.6 L (0.9-1.6) Lipase 163 (73-393) U/L Urine Color Urine Appearance Urine pH (5.0-8.0) Ur Specific [place] (1.001-1.035) Urine Protein (NEGATIVE) mg/dL Urine Glucose (UA) (NEGATIVE) mg/dL Urine Ketones (NEGATIVE) mg/dL Urine Occult Blood (NEGATIVE) Urine Nitrite (NEGATIVE) Urine Bilirubin (NEGATIVE) Urine Urobilinogen (<2.0) EU/dL Ur Leukocyte Esterase (NEGATIVE) Urine RBC (0-2/HPF) Urine WBC (0-5/HPF) Ur Epithelial Cells (NONE-FEW) Urine Bacteria (NEGATIVE) Fluid Type Fluid Color Fluid Appearance Fluid WBC K/uL Fluid RBC M/uL Fluid Mononuclear Cell % Fl Polymorphonucl Cell % Fluid Glucose mg/dL Fluid Total Protein g/dL Fluid LDH U/L Fluid Amylase U/L Fluid Cholesterol g/dL Fluid Triglycerides mg/dL Pleural pH Ethyl Alcohol mg/dL 02/24/18 02/24/18 02/24/18 Range/Units 10:35 10:35 10:35 WBC (4.0-11.0) K/uL RBC (4.50-5.90) M/uL Hgb (13.0-17.0) g/dL Hct (38.0-50.0) % MCV (80.0-98.0) fL MCH (27.0-32.0) pg MCHC (31.0-37.0) g/dL RDW Std Deviation (28.0-62.0) fl RDW Coeff of Sage (11.0-15.0) % Plt Count (150-400) K/uL MPV (7.40-12.00) fL Neut % (Auto) (48.0-80.0) % Lymph % (Auto) (16.0-40.0) % [place] % (Auto) (0.0-15.0) % Eos % (Auto) (0.0-7.0) % Baso % (Auto) (0.0-1.5) % Neut # (Auto) (1.4-5.7) K/uL Lymph # (Auto) (0.6-2.4) K/uL [place] # (Auto) (0.0-0.8) K/uL Eos # (Auto) (0.0-0.7) K/uL Baso # (Auto) (0.0-0.1) K/uL Nucleated RBC % /100WBC Nucleated RBCs # K/uL INR APTT (18.6-31.3) SEC Lactate (0.20-2.00) mmol/L Sodium (136-148) mmol/L Potassium (3.5-5.1) mmol/L Chloride (98-107) mmol/L Carbon Dioxide (21.0-32.0) mmol/L BUN (7.0-18.0) mg/dL Creatinine (0.8-1.3) mg/dL Est Cr Clr Drug Dosing Estimated GFR (MDRD) ml/min Glucose (74-106) mg/dL Calcium (8.5-10.1) mg/dL Phosphorus 3.1 (2.6-4.7) mg/dL Magnesium 1.9 (1.8-2.4) mg/dL Total Bilirubin (0.2-1.0) mg/dL AST (15-37) IU/L ALT (14-63) IU/L Alkaline Phosphatase (46-116) U/L Lactate Dehydrogenase (81-234) U/L Creatine Kinase (26-308) U/L B-Natriuretic Peptide 114 H (<100) PG/ML Total Protein (6.4-8.2) g/dL Albumin (3.4-5.0) g/dL Globulin (2.6-4.0) g/dL Albumin/Globulin Ratio (0.9-1.6) Lipase (73-393) U/L Urine Color Urine Appearance Urine pH (5.0-8.0) Ur Specific [place] (1.001-1.035) Urine Protein (NEGATIVE) mg/dL Urine Glucose (UA) (NEGATIVE) mg/dL Urine Ketones (NEGATIVE) mg/dL Urine Occult Blood (NEGATIVE) Urine Nitrite (NEGATIVE) Urine Bilirubin (NEGATIVE) Urine Urobilinogen (<2.0) EU/dL Ur Leukocyte Esterase (NEGATIVE) Urine RBC (0-2/HPF) Urine WBC (0-5/HPF) Ur Epithelial Cells (NONE-FEW) Urine Bacteria (NEGATIVE) Fluid Type Fluid Color Fluid Appearance Fluid WBC K/uL Fluid RBC M/uL Fluid Mononuclear Cell % Fl Polymorphonucl Cell % Fluid Glucose mg/dL Fluid Total Protein g/dL Fluid LDH U/L Fluid Amylase U/L Fluid Cholesterol g/dL Fluid Triglycerides mg/dL Pleural pH Ethyl Alcohol < 3.0 mg/dL 02/24/18 02/24/18 02/24/18 Range/Units 10:35 10:35 10:35 WBC (4.0-11.0) K/uL RBC (4.50-5.90) M/uL Hgb (13.0-17.0) g/dL Hct (38.0-50.0) % MCV (80.0-98.0) fL MCH (27.0-32.0) pg MCHC (31.0-37.0) g/dL RDW Std Deviation (28.0-62.0) fl RDW Coeff of Sage (11.0-15.0) % Plt Count (150-400) K/uL MPV (7.40-12.00) fL Neut % (Auto) (48.0-80.0) % Lymph % (Auto) (16.0-40.0) % [place] % (Auto) (0.0-15.0) % Eos % (Auto) (0.0-7.0) % Baso % (Auto) (0.0-1.5) % Neut # (Auto) (1.4-5.7) K/uL Lymph # (Auto) (0.6-2.4) K/uL [place] # (Auto) (0.0-0.8) K/uL Eos # (Auto) (0.0-0.7) K/uL Baso # (Auto) (0.0-0.1) K/uL Nucleated RBC % /100WBC Nucleated RBCs # K/uL INR 1.19 APTT 26.8 (18.6-31.3) SEC Lactate (0.20-2.00) mmol/L Sodium (136-148) mmol/L Potassium (3.5-5.1) mmol/L Chloride (98-107) mmol/L Carbon Dioxide (21.0-32.0) mmol/L BUN (7.0-18.0) mg/dL Creatinine (0.8-1.3) mg/dL Est Cr Clr Drug Dosing Estimated GFR (MDRD) ml/min Glucose (74-106) mg/dL Calcium (8.5-10.1) mg/dL Phosphorus (2.6-4.7) mg/dL Magnesium (1.8-2.4) mg/dL Total Bilirubin (0.2-1.0) mg/dL AST (15-37) IU/L ALT (14-63) IU/L Alkaline Phosphatase (46-116) U/L Lactate Dehydrogenase (81-234) U/L Creatine Kinase 64 (26-308) U/L B-Natriuretic Peptide (<100) PG/ML Total Protein (6.4-8.2) g/dL Albumin (3.4-5.0) g/dL Globulin (2.6-4.0) g/dL Albumin/Globulin Ratio (0.9-1.6) Lipase (73-393) U/L Urine Color Urine Appearance Urine pH (5.0-8.0) Ur Specific [place] (1.001-1.035) Urine Protein (NEGATIVE) mg/dL Urine Glucose (UA) (NEGATIVE) mg/dL Urine Ketones (NEGATIVE) mg/dL Urine Occult Blood (NEGATIVE) Urine Nitrite (NEGATIVE) Urine Bilirubin (NEGATIVE) Urine Urobilinogen (<2.0) EU/dL Ur Leukocyte Esterase (NEGATIVE) Urine RBC (0-2/HPF) Urine WBC (0-5/HPF) Ur Epithelial Cells (NONE-FEW) Urine Bacteria (NEGATIVE) Fluid Type Fluid Color Fluid Appearance Fluid WBC K/uL Fluid RBC M/uL Fluid Mononuclear Cell % Fl Polymorphonucl Cell % Fluid Glucose mg/dL Fluid Total Protein g/dL Fluid LDH U/L Fluid Amylase U/L Fluid Cholesterol g/dL Fluid Triglycerides mg/dL Pleural pH Ethyl Alcohol mg/dL 02/24/18 02/24/18 02/24/18 Range/Units 13:19 14:10 15:07 WBC (4.0-11.0) K/uL RBC (4.50-5.90) M/uL Hgb (13.0-17.0) g/dL Hct (38.0-50.0) % MCV (80.0-98.0) fL MCH (27.0-32.0) pg MCHC (31.0-37.0) g/dL RDW Std Deviation (28.0-62.0) fl RDW Coeff of Sage (11.0-15.0) % Plt Count (150-400) K/uL MPV (7.40-12.00) fL Neut % (Auto) (48.0-80.0) % Lymph % (Auto) (16.0-40.0) % [place] % (Auto) (0.0-15.0) % Eos % (Auto) (0.0-7.0) % Baso % (Auto) (0.0-1.5) % Neut # (Auto) (1.4-5.7) K/uL Lymph # (Auto) (0.6-2.4) K/uL [place] # (Auto) (0.0-0.8) K/uL Eos # (Auto) (0.0-0.7) K/uL Baso # (Auto) (0.0-0.1) K/uL Nucleated RBC % /100WBC Nucleated RBCs # K/uL INR APTT (18.6-31.3) SEC Lactate (0.20-2.00) mmol/L Sodium 119 L* (136-148) mmol/L Potassium 3.6 (3.5-5.1) mmol/L Chloride 86 L (98-107) mmol/L Carbon Dioxide 22.3 (21.0-32.0) mmol/L BUN 6 L (7.0-18.0) mg/dL Creatinine 0.5 L (0.8-1.3) mg/dL Est Cr Clr Drug Dosing 139.82 Estimated GFR (MDRD) > 60.0 ml/min Glucose 93 (74-106) mg/dL Calcium 8.1 L (8.5-10.1) mg/dL Phosphorus (2.6-4.7) mg/dL Magnesium (1.8-2.4) mg/dL Total Bilirubin (0.2-1.0) mg/dL AST (15-37) IU/L ALT (14-63) IU/L Alkaline Phosphatase (46-116) U/L Lactate Dehydrogenase (81-234) U/L Creatine Kinase (26-308) U/L B-Natriuretic Peptide (<100) PG/ML Total Protein (6.4-8.2) g/dL Albumin (3.4-5.0) g/dL Globulin (2.6-4.0) g/dL Albumin/Globulin Ratio (0.9-1.6) Lipase (73-393) U/L Urine Color YELLOW Urine Appearance CLEAR Urine pH 6.5 (5.0-8.0) Ur Specific [place] 1.010 (1.001-1.035) Urine Protein NEGATIVE (NEGATIVE) mg/dL Urine Glucose (UA) NEGATIVE (NEGATIVE) mg/dL Urine Ketones 40 H (NEGATIVE) mg/dL Urine Occult Blood NEGATIVE (NEGATIVE) Urine Nitrite NEGATIVE (NEGATIVE) Urine Bilirubin NEGATIVE (NEGATIVE) Urine Urobilinogen 0.2 (<2.0) EU/dL Ur Leukocyte Esterase NEGATIVE (NEGATIVE) Urine RBC 0-1 (0-2/HPF) Urine WBC 0-1 (0-5/HPF) Ur Epithelial Cells RARE (NONE-FEW) Urine Bacteria RARE (NEGATIVE) Fluid Type PL Fluid Color RED Fluid Appearance BLOODY Fluid WBC 0.75 K/uL Fluid RBC 0.73 M/uL Fluid Mononuclear Cell 66.6 % Fl Polymorphonucl Cell 33.4 % Fluid Glucose 80 mg/dL Fluid Total Protein 3.3 g/dL Fluid LDH 306 U/L Fluid Amylase 22 U/L Fluid Cholesterol 50.0 g/dL Fluid Triglycerides 38 mg/dL Pleural pH 8.0 Ethyl Alcohol mg/dL 02/24/18 02/24/18 02/24/18 Range/Units 16:04 18:01 21:58 WBC (4.0-11.0) K/uL RBC (4.50-5.90) M/uL Hgb (13.0-17.0) g/dL Hct (38.0-50.0) % MCV (80.0-98.0) fL MCH (27.0-32.0) pg MCHC (31.0-37.0) g/dL RDW Std Deviation (28.0-62.0) fl RDW Coeff of Sage (11.0-15.0) % Plt Count (150-400) K/uL MPV (7.40-12.00) fL Neut % (Auto) (48.0-80.0) % Lymph % (Auto) (16.0-40.0) % [place] % (Auto) (0.0-15.0) % Eos % (Auto) (0.0-7.0) % Baso % (Auto) (0.0-1.5) % Neut # (Auto) (1.4-5.7) K/uL Lymph # (Auto) (0.6-2.4) K/uL [place] # (Auto) (0.0-0.8) K/uL Eos # (Auto) (0.0-0.7) K/uL Baso # (Auto) (0.0-0.1) K/uL Nucleated RBC % /100WBC Nucleated RBCs # K/uL INR APTT (18.6-31.3) SEC Lactate (0.20-2.00) mmol/L Sodium 118 L* 120 L (136-148) mmol/L Potassium 3.4 L 3.4 L (3.5-5.1) mmol/L Chloride 87 L 88 L (98-107) mmol/L Carbon Dioxide 22.5 25.3 (21.0-32.0) mmol/L BUN 6 L 4 L (7.0-18.0) mg/dL Creatinine 0.6 L 0.7 L (0.8-1.3) mg/dL Est Cr Clr Drug Dosing 116.52 99.87 Estimated GFR (MDRD) > 60.0 > 60.0 ml/min Glucose 137 H 101 (74-106) mg/dL Calcium 7.9 L 7.6 L (8.5-10.1) mg/dL Phosphorus (2.6-4.7) mg/dL Magnesium (1.8-2.4) mg/dL Total Bilirubin (0.2-1.0) mg/dL AST (15-37) IU/L ALT (14-63) IU/L Alkaline Phosphatase (46-116) U/L Lactate Dehydrogenase 222 (81-234) U/L Creatine Kinase (26-308) U/L B-Natriuretic Peptide (<100) PG/ML Total Protein (6.4-8.2) g/dL Albumin (3.4-5.0) g/dL Globulin (2.6-4.0) g/dL Albumin/Globulin Ratio (0.9-1.6) Lipase (73-393) U/L Urine Color Urine Appearance Urine pH (5.0-8.0) Ur Specific [place] (1.001-1.035) Urine Protein (NEGATIVE) mg/dL Urine Glucose (UA) (NEGATIVE) mg/dL Urine Ketones (NEGATIVE) mg/dL Urine Occult Blood (NEGATIVE) Urine Nitrite (NEGATIVE) Urine Bilirubin (NEGATIVE) Urine Urobilinogen (<2.0) EU/dL Ur Leukocyte Esterase (NEGATIVE) Urine RBC (0-2/HPF) Urine WBC (0-5/HPF) Ur Epithelial Cells (NONE-FEW) Urine Bacteria (NEGATIVE) Fluid Type Fluid Color Fluid Appearance Fluid WBC K/uL Fluid RBC M/uL Fluid Mononuclear Cell % Fl Polymorphonucl Cell % Fluid Glucose mg/dL Fluid Total Protein g/dL Fluid LDH U/L Fluid Amylase U/L Fluid Cholesterol g/dL Fluid Triglycerides mg/dL Pleural pH Ethyl Alcohol mg/dL 02/25/18 02/25/18 02/25/18 Range/Units 02:08 05:58 05:58 WBC 6.40 (4.0-11.0) K/uL RBC 3.19 L (4.50-5.90) M/uL Hgb 10.2 L (13.0-17.0) g/dL Hct 29.9 L (38.0-50.0) % MCV 93.7 (80.0-98.0) fL MCH 32.0 (27.0-32.0) pg MCHC 34.1 (31.0-37.0) g/dL RDW Std Deviation 46.9 (28.0-62.0) fl RDW Coeff of Sage 14 (11.0-15.0) % Plt Count 133 L (150-400) K/uL MPV 10.40 (7.40-12.00) fL Neut % (Auto) 78.1 (48.0-80.0) % Lymph % (Auto) 15.8 L (16.0-40.0) % [place] % (Auto) 5.6 (0.0-15.0) % Eos % (Auto) 0.3 (0.0-7.0) % Baso % (Auto) 0.2 (0.0-1.5) % Neut # (Auto) 5.0 (1.4-5.7) K/uL Lymph # (Auto) 1.0 (0.6-2.4) K/uL [place] # (Auto) 0.4 (0.0-0.8) K/uL Eos # (Auto) 0.0 (0.0-0.7) K/uL Baso # (Auto) 0.0 (0.0-0.1) K/uL Nucleated RBC % 0.0 /100WBC Nucleated RBCs # 0 K/uL INR APTT (18.6-31.3) SEC Lactate (0.20-2.00) mmol/L Sodium 123 L (136-148) mmol/L Potassium 3.6 (3.5-5.1) mmol/L Chloride 92 L (98-107) mmol/L Carbon Dioxide 22.2 (21.0-32.0) mmol/L BUN 4 L (7.0-18.0) mg/dL Creatinine 0.6 L (0.8-1.3) mg/dL Est Cr Clr Drug Dosing 116.52 Estimated GFR (MDRD) > 60.0 ml/min Glucose 109 H (74-106) mg/dL Calcium 7.8 L (8.5-10.1) mg/dL Phosphorus 3.1 (2.6-4.7) mg/dL Magnesium 2.2 (1.8-2.4) mg/dL Total Bilirubin (0.2-1.0) mg/dL AST (15-37) IU/L ALT (14-63) IU/L Alkaline Phosphatase (46-116) U/L Lactate Dehydrogenase (81-234) U/L Creatine Kinase (26-308) U/L B-Natriuretic Peptide (<100) PG/ML Total Protein (6.4-8.2) g/dL Albumin (3.4-5.0) g/dL Globulin (2.6-4.0) g/dL Albumin/Globulin Ratio (0.9-1.6) Lipase (73-393) U/L Urine Color Urine Appearance Urine pH (5.0-8.0) Ur Specific [place] (1.001-1.035) Urine Protein (NEGATIVE) mg/dL Urine Glucose (UA) (NEGATIVE) mg/dL Urine Ketones (NEGATIVE) mg/dL Urine Occult Blood (NEGATIVE) Urine Nitrite (NEGATIVE) Urine Bilirubin (NEGATIVE) Urine Urobilinogen (<2.0) EU/dL Ur Leukocyte Esterase (NEGATIVE) Urine RBC (0-2/HPF) Urine WBC (0-5/HPF) Ur Epithelial Cells (NONE-FEW) Urine Bacteria (NEGATIVE) Fluid Type Fluid Color Fluid Appearance Fluid WBC K/uL Fluid RBC M/uL Fluid Mononuclear Cell % Fl Polymorphonucl Cell % Fluid Glucose mg/dL Fluid Total Protein g/dL Fluid LDH U/L Fluid Amylase U/L Fluid Cholesterol g/dL Fluid Triglycerides mg/dL Pleural pH Ethyl Alcohol mg/dL 02/25/18 Range/Units 05:58 WBC (4.0-11.0) K/uL RBC (4.50-5.90) M/uL Hgb (13.0-17.0) g/dL Hct (38.0-50.0) % MCV (80.0-98.0) fL MCH (27.0-32.0) pg MCHC (31.0-37.0) g/dL RDW Std Deviation (28.0-62.0) fl RDW Coeff of Sage (11.0-15.0) % Plt Count (150-400) K/uL MPV (7.40-12.00) fL Neut % (Auto) (48.0-80.0) % Lymph % (Auto) (16.0-40.0) % [place] % (Auto) (0.0-15.0) % Eos % (Auto) (0.0-7.0) % Baso % (Auto) (0.0-1.5) % Neut # (Auto) (1.4-5.7) K/uL Lymph # (Auto) (0.6-2.4) K/uL [place] # (Auto) (0.0-0.8) K/uL Eos # (Auto) (0.0-0.7) K/uL Baso # (Auto) (0.0-0.1) K/uL Nucleated RBC % /100WBC Nucleated RBCs # K/uL INR APTT (18.6-31.3) SEC Lactate (0.20-2.00) mmol/L Sodium 127 L (136-148) mmol/L Potassium 3.5 (3.5-5.1) mmol/L Chloride 96 L (98-107) mmol/L Carbon Dioxide 22.7 (21.0-32.0) mmol/L BUN 4 L (7.0-18.0) mg/dL Creatinine 0.5 L (0.8-1.3) mg/dL Est Cr Clr Drug Dosing 137.93 Estimated GFR (MDRD) > 60.0 ml/min Glucose 109 H (74-106) mg/dL Calcium 8.4 L (8.5-10.1) mg/dL Phosphorus (2.6-4.7) mg/dL Magnesium (1.8-2.4) mg/dL Total Bilirubin (0.2-1.0) mg/dL AST (15-37) IU/L ALT (14-63) IU/L Alkaline Phosphatase (46-116) U/L Lactate Dehydrogenase (81-234) U/L Creatine Kinase (26-308) U/L B-Natriuretic Peptide (<100) PG/ML Total Protein (6.4-8.2) g/dL Albumin (3.4-5.0) g/dL Globulin (2.6-4.0) g/dL Albumin/Globulin Ratio (0.9-1.6) Lipase (73-393) U/L Urine Color Urine Appearance Urine pH (5.0-8.0) Ur Specific [place] (1.001-1.035) Urine Protein (NEGATIVE) mg/dL Urine Glucose (UA) (NEGATIVE) mg/dL Urine Ketones (NEGATIVE) mg/dL Urine Occult Blood (NEGATIVE) Urine Nitrite (NEGATIVE) Urine Bilirubin (NEGATIVE) Urine Urobilinogen (<2.0) EU/dL Ur Leukocyte Esterase (NEGATIVE) Urine RBC (0-2/HPF) Urine WBC (0-5/HPF) Ur Epithelial Cells (NONE-FEW) Urine Bacteria (NEGATIVE) Fluid Type Fluid Color Fluid Appearance Fluid WBC K/uL Fluid RBC M/uL Fluid Mononuclear Cell % Fl Polymorphonucl Cell % Fluid Glucose mg/dL Fluid Total Protein g/dL Fluid LDH U/L Fluid Amylase U/L Fluid Cholesterol g/dL Fluid Triglycerides mg/dL Pleural pH Ethyl Alcohol mg/dL [place] Results Last 24 Hours: Microbiology 01/15/19 10:35 Aerobic Blood Culture - Preliminary Blood - Venous 02/24/18 15:07 Gram Stain - Preliminary Pleural Fluid 02/24/18 13:41 Gram Stain - Preliminary Sputum - Expectorated Med Orders - Current: Current Medications Acetaminophen (Tylenol) 650 mg PO Q4H PRN PRN Reason: Pain (mild 1-3) Albuterol/Ipratropium (Duoneb 3.0-0.5 Mg/3 Ml) 3 ml NEB Q4HRRT [facility] Last Admin: 02/25/18 05:53 Dose: 3 ml Benzonatate (Tessalon Perles) 100 mg PO Q6H PRN PRN Reason: Cough Last Admin: 02/25/18 02:13 Dose: 100 mg Docusate Sodium (Colace) 100 mg PO BID PRN PRN Reason: Constipation Folic Acid (Folic Acid) 1 mg PO BEDTIME [facility] Last Admin: 02/24/18 20:02 Dose: 1 mg Levofloxacin/Dextrose 750 mg/ (Premix) 150 mls @ 100 mls/hr IV Q24H [facility] Last Admin: 02/24/18 16:42 Dose: 100 mls/hr Vancomycin HCl 1 gm/ Sodium (Chloride) 250 mls @ 166 mls/hr IV Q8H [facility] Lorazepam (Ativan) 0 mg IVPUSH Q4H PRN; Protocol PRN Reason: CIWAA Morphine Sulfate (Morphine) 2 mg IVPUSH Q2H PRN PRN Reason: Pain (severe 7-10) Last Admin: 02/25/18 04:25 Dose: 2 mg Nicotine (Habitrol) 21 mg TRDERM DAILY [facility] Ondansetron HCl (Zofran) 4 mg IVPUSH Q4H PRN PRN Reason: Nausea Oxycodone HCl (Oxycodone) 5 mg PO Q4H PRN PRN Reason: Pain Last Admin: 02/25/18 02:13 Dose: 5 mg Pantoprazole Sodium (Protonix Iv) 40 mg IVPUSH Q24H [facility] Last Admin: 02/24/18 16:06 Dose: 40 mg Fluticasone/Salmeterol (Advair Diskus 250-50) 1 puff INH BID [facility] Last Admin: 02/24/18 21:15 Dose: 1 puff Sodium Chloride (Saline Flush) 10 ml FLUSH ASDIRECTED PRN PRN Reason: Keep Vein Open Sodium Chloride (Saline Flush) 2.5 ml FLUSH ASDIRECTED PRN PRN Reason: Keep Vein Open Thiamine HCl (Vitamin B-1) 100 mg PO BEDTIME [facility] Last Admin: 02/24/18 20:02 Dose: 100 mg Vancomycin HCl (Pharmacy To Dose - Vancomycin) 1 dose .XX ASDIRECTED [facility] Discontinued Medications Albuterol/Ipratropium (Duoneb 3.0-0.5 Mg/3 Ml) 3 ml NEB Q4HRRT PRN PRN Reason: Shortness Of Breath/wheezing Multivitamins/Minerals 10 ml/Thiamine HCl 100 mg/ Folic Acid 1 mg/ Sodium Chloride 1,011.2 mls @ 999 mls/hr IV ONETIME ONE Stop: 02/24/18 11:24 Last Admin: 02/24/18 11:06 Dose: 999 mls/hr Magnesium Sulfate 2 gm/ Premix 50 mls @ 25 mls/hr IV ONETIME ONE Stop: 02/24/18 12:39 Last Admin: 02/24/18 11:06 Dose: 25 mls/hr Sodium Chloride (Normal Saline) 1,000 mls @ 100 mls/hr IV ASDIRECTED [facility] Last Admin: 02/24/18 16:04 Dose: 100 mls/hr Vancomycin HCl 1 gm/ Sodium (Chloride) 250 mls @ 166 mls/hr IV Q12H [facility] Last Admin: 02/25/18 02:33 Dose: 166 mls/hr Iopamidol (Isovue Multipack-370 (76%)) 75 ml IVPUSH ONETIME STA Stop: 02/24/18 15:50 Last Admin: 02/24/18 15:50 Dose: 75 ml Nicotine (Habitrol) 14 mg TRDERM ONETIME ONE Stop: 02/24/18 11:26 Last Admin: 02/24/18 11:34 Dose: 14 mg Potassium Chloride (Klor-Con M20) 40 meq PO ONETIME ONE Stop: 02/24/18 14:57 Last Admin: 02/24/18 16:06 Dose: 40 meq - Exam General: Alert, Oriented, Cooperative, No Acute Distress Neck: Supple Lungs: Rhonchi (throughout) Cardiovascular: Regular Rate, Regular Rhythm, No Murmurs GI/Abdominal Exam: Normal Bowel Sounds, Soft, Non-Tender, No Mass Extremities: Normal Inspection, Normal Range of Motion, Non-Tender, No Pedal Edema Wound/Incisions: Decubitis (stage 1, moisture breakdown noted to buttock, ) Neurological: No New Focal Deficit Psy/Mental Status: Alert, Normal Affect, Normal Mood - Problem List & Annotations (1) Hyponatremia SNOMED Code(s): 13613056 Code(s): E87.1 - HYPO-OSMOLALITY AND HYPONATREMIA Status: Acute Current Visit: Yes (2) Pleural effusion SNOMED Code(s): 38301017 Code(s): J90 - PLEURAL EFFUSION, NOT ELSEWHERE CLASSIFIED Status: Acute Current Visit: Yes (3) Dyspnea SNOMED Code(s): 630479095 Code(s): R06.00 - DYSPNEA, UNSPECIFIED Status: Acute Current Visit: Yes (4) Generalized weakness SNOMED Code(s): 95090261 Code(s): R53.1 - WEAKNESS Status: Acute Current Visit: Yes (5) Protein malnutrition SNOMED Code(s): 914842675 Code(s): E46 - UNSPECIFIED PROTEIN-CALORIE MALNUTRITION Status: Acute Current Visit: Yes (6) Failure to thrive in adult SNOMED Code(s): 889603789 Code(s): R62.7 - ADULT FAILURE TO THRIVE Status: Acute Current Visit: Yes (7) Alcohol abuse SNOMED Code(s): 22646579 Code(s): F10.10 - ALCOHOL ABUSE, UNCOMPLICATED Status: Chronic Current Visit: Yes (8) Hx of deep venous thrombosis SNOMED Code(s): 483314035 Code(s): Z86.718 - PERSONAL HISTORY OF OTHER VENOUS THROMBOSIS AND EMBOLISM Status: Chronic Current Visit: Yes (9) COPD (chronic obstructive pulmonary disease) SNOMED Code(s): 71121055 Code(s): J44.9 - CHRONIC OBSTRUCTIVE PULMONARY DISEASE, UNSPECIFIED Status : Chronic Current Visit: Yes (10) Tobacco abuse SNOMED Code(s): 501742860 Code(s): Z72.0 - TOBACCO USE Status: Chronic Current Visit: Yes - Problem List Review Problem List Initiated/Reviewed/Updated: Yes - My Orders Last 24 Hours: My Active Orders 02/24/18 12:40 Height and Weight [RC] DAILY Intake and Output [RC] QSHIFT Oxygen Therapy [RC] PRN Up With Assistance [RC] ASDIRECTED VTE/DVT Education [RC] PER UNIT ROUTINE Vital Signs [RC] Q4H Acetaminophen [Tylenol] 650 mg PO Q4H PRN Morphine 2 mg IVPUSH Q2H PRN Resuscitation Status Routine 02/24/18 12:41 Docusate Sodium [Colace] 100 mg PO BID PRN Ondansetron [Zofran] 4 mg IVPUSH Q4H PRN 02/24/18 12:42 RT Aerosol Therapy [RC] ASDIRECTED 02/24/18 12:45 Telemetry Monitoring [Cardiac Monitoring] [RC] Q8H 02/24/18 13:41 CULTURE SPUTUM + SMEAR [RM] Stat 02/24/18 13:58 LORazepam [Ativan] See Protocol IVPUSH Q4H PRN 02/24/18 15:07 CULTURE BODY FLUID + SMEAR [RM] Routine 02/24/18 15:15 Pantoprazole [ProTONIX IV] 40 mg IVPUSH Q24H 02/24/18 16:45 Levofloxacin/Dextrose 5%-Water [Levaquin in D5W 750 MG/150 ML] 750 mg Premix Bag 1 bag IV Q24H 02/24/18 18:00 Albuterol/Ipratropium [DuoNeb 3.0-0.5 MG/3 ML] 3 ml NEB Q4HRRT 02/24/18 21:00 Fluticasone/Salmeterol [Advair Diskus 250-50] 1 puff INH BID Folic Acid 1 mg PO BEDTIME Thiamine [Vitamin B-1] 100 mg PO BEDTIME 02/24/18 Lunch Regular Diet [DIET] 02/25/18 09:00 Nicotine [Habitrol] 21 mg TRDERM DAILY 02/25/18 10:00 BMP [BASIC METABOLIC PANEL,BMP] [CHEM] Q4H 02/25/18 14:00 BMP [BASIC METABOLIC PANEL,BMP] [CHEM] Q4H 02/25/18 18:00 BMP [BASIC METABOLIC PANEL,BMP] [CHEM] Q4H 02/26/18 05:11 CBC WITH AUTO DIFF [HEME] AM MAGNESIUM [CHEM] AM PHOSPHORUS [CHEM] AM 02/27/18 05:11 CBC WITH AUTO DIFF [HEME] AM MAGNESIUM [CHEM] AM PHOSPHORUS [CHEM] AM 02/28/18 05:11 CBC WITH AUTO DIFF [HEME] AM MAGNESIUM [CHEM] AM PHOSPHORUS [CHEM] AM - Plan Plan:: This 57 year old male admitted with R sided pleural effusion and hyponatremia 1. Pleural effusion: Thoracentesis yesterday remove 1100 ml of dark red fluid, with analysis it appears exudative. Cytology and cultures still pending on pleural fluid. Chest CT with contrast revealed "moderate persistent R pleural effusion and minimal Left, compressive atelectasis noted within the R lung base without a definite mass or nodule, reticular ground glass changes bilaterally most notable within the left upper lobe, may represent atypical infectious process." He was started on Levaquin. Await pending fluid analysis. 2. Positive BC: 02/13 bottles returned last night with gram positive cocci in pairs and clusters, Vancomycin started. Will monitor. No fevers. 3. Hyponatremia: Improving. Na 127 this morning. NS stopped. Will check Na every 4 hours. Could be linked to alcoholism and poor oral intake or SIADH if malignancy is present. 4. Weakness: Chair bound at home per sisters and patient. hasn't walked much due to weakness. Will consult PT. 5. Alcohol abuse: No signs of withdrawal. Place on CIWAA protocol. Supplement with Folic acid and Thiamine daily. 6.. Tobacco abuse: Nicotine patch, would like to quit and wants prescription for patch on discharge. 7. COPD: stable. but does have nebulizers. Continue Duoneb PRN. VTE prophylaxis: Nothing now due to thoracentesis ordered, once completed will start. Dispo: 3-4 days pending improvement
[2018-02-25] MEDS: Fluticasone/Salmeterol 250-50 MCG Inhalation Powder 14/Diskus INH SCH ×2 (09:28→21:17)
[2018-02-25] MEDS: Nicotine 21 MG/24 Hr Patch TRDERM SCH (10:24)
[2018-02-25 11:45] LABS: CHLORIDE,CL 95 mmol/L (98-107); SODIUM,NA 125 mmol/L (136-148)
[2018-02-25 14:33] LABS: CHLORIDE,CL 94 mmol/L (98-107); SODIUM,NA 125 mmol/L (136-148)
[2018-02-25] MEDS: Potassium Chloride 20 MEQ Tab.ER PO SCH ×2 (14:52→17:00)
[2018-02-25] MEDS: Pantoprazole 40 MG Vial IVPUSH SCH (14:52)
[2018-02-25] MEDS ORDERED: Sodium Chloride 0.9% with KCl 1,000 ML IV SCH (15:00)
[2018-02-25] MEDS: Levofloxacin/Dextrose 5%-Water 750 MG in Premix Bag 1 BAG IV SCH (16:29)
[2018-02-25] MEDS: Thiamine 100 MG Tab PO SCH (21:46)
[2018-02-25] MEDS: Folic Acid 1 MG Tab PO SCH (21:46)
[2018-02-26] MEDS: Albuterol/Ipratropium 3.0-0.5 MG/3 ML Neb Soln NEB SCH ×6 (01:56→21:29)
[2018-02-26] MEDS: Morphine 2 MG/ML Syringe IVPUSH PRN (03:32)
[2018-02-26 03:40] LABS: CHLORIDE,CL 100 mmol/L (98-107); SODIUM,NA 129 mmol/L (136-148)
[2018-02-26] MEDS ORDERED: Magnesium Sulfate/Water 2 GM in Premix Bag 1 BAG IV ONE (08:15)
[2018-02-26] MEDS: Nicotine 21 MG/24 Hr Patch TRDERM SCH (08:34)
[2018-02-26] MEDS ORDERED: LORazepam 0.5 MG Tab PO PRN (09:50)
--- NOTE | 2018-02-26 09:51 | PCM.PN ---
<Aliyah Lowe M - Last Filed: 02/26/18 09:56> - General Info Date of Service: 02/26/18 Admission Dx/Problem (Free Text): Admission Diagnosis/Problem Admission Diagnosis/Problem Hyponatremia Subjective Update: Doing ok this morning. Wanting to go home and reports sisters will take him home. No chest pain. Has pleuritic pain with coughing. Still coughing up thick phelgm. Refusing PT this morning. Functional Status: Reports: Pain Controlled, Tolerating Diet - Review of Systems General: Reports: Weakness, Fatigue. Denies: Fever HEENT: Reports: No Symptoms. Denies: Headaches, Sore Throat, Visual Changes Pulmonary: Reports: Shortness of Breath (much improved.), Pleuritic Chest Pain, Cough, Sputum Cardiovascular: Denies: Chest Pain Gastrointestinal: Reports: No Symptoms. Denies: Abdominal Pain, Nausea, Vomiting Genitourinary: Reports: No Symptoms. Denies: Dysuria, Frequency, Burning Musculoskeletal: Reports: No Symptoms Skin: Reports: No Symptoms Neurological: Reports: No Symptoms Psychiatric: Reports: No Symptoms - Patient Data Vitals - Most Recent: Last Vital Signs Temp 98.5 F 02/26/18 07:14 Pulse 86 02/26/18 07:14 Resp 19 02/26/18 07:14 BP 117/74 02/26/18 07:14 Pulse Ox 96 02/26/18 07:14 Weight - Most Recent: 63.458 kg I&O - Last 24 Hours: Intake & Output 02/25/18 02/26/18 02/26/18 22:59 06:59 14:59 Intake Total 2700 1800 Output Total 2405 2300 Balance 295 -500 Lab Results Last 24 Hours: Laboratory Results - last 24 hr 02/25/18 02/25/18 02/25/18 Range/Units 10:55 14:07 14:07 WBC (4.0-11.0) K/uL RBC (4.50-5.90) M/uL Hgb (13.0-17.0) g/dL Hct (38.0-50.0) % MCV (80.0-98.0) fL MCH (27.0-32.0) pg MCHC (31.0-37.0) g/dL RDW Std Deviation (28.0-62.0) fl RDW Coeff of Sage (11.0-15.0) % Plt Count (150-400) K/uL MPV (7.40-12.00) fL Neut % (Auto) (48.0-80.0) % Lymph % (Auto) (16.0-40.0) % [place] % (Auto) (0.0-15.0) % Eos % (Auto) (0.0-7.0) % Baso % (Auto) (0.0-1.5) % Neut # (Auto) (1.4-5.7) K/uL Lymph # (Auto) (0.6-2.4) K/uL [place] # (Auto) (0.0-0.8) K/uL Eos # (Auto) (0.0-0.7) K/uL Baso # (Auto) (0.0-0.1) K/uL Sodium 125 L 125 L (136-148) mmol/L Potassium 3.5 2.8 L (3.5-5.1) mmol/L Chloride 95 L 94 L (98-107) mmol/L Carbon Dioxide 22.8 26.0 (21.0-32.0) mmol/L BUN 5 L 5 L (7.0-18.0) mg/dL Creatinine 0.6 L 0.7 L (0.8-1.3) mg/dL Est Cr Clr Drug Dosing 114.94 98.52 mL/min Estimated GFR (MDRD) > 60.0 > 60.0 ml/min Glucose 141 H 107 H (74-106) mg/dL Calcium 7.8 L 8.1 L (8.5-10.1) mg/dL Phosphorus (2.6-4.7) mg/dL Magnesium 2.0 (1.8-2.4) mg/dL 02/26/18 02/26/18 02/26/18 Range/Units 03:15 03:15 03:15 WBC 6.01 (4.0-11.0) K/uL RBC 2.83 L (4.50-5.90) M/uL Hgb 9.3 L (13.0-17.0) g/dL Hct 27.4 L (38.0-50.0) % MCV 96.8 (80.0-98.0) fL MCH 32.9 H (27.0-32.0) pg MCHC 33.9 (31.0-37.0) g/dL RDW Std Deviation 44.1 (28.0-62.0) fl RDW Coeff of Sage 13 (11.0-15.0) % Plt Count 139 L (150-400) K/uL MPV 11.10 (7.40-12.00) fL Neut % (Auto) 72.7 (48.0-80.0) % Lymph % (Auto) 19.3 (16.0-40.0) % [place] % (Auto) 6.3 (0.0-15.0) % Eos % (Auto) 1.2 (0.0-7.0) % Baso % (Auto) 0.5 (0.0-1.5) % Neut # (Auto) 4.4 (1.4-5.7) K/uL Lymph # (Auto) 1.2 (0.6-2.4) K/uL [place] # (Auto) 0.4 (0.0-0.8) K/uL Eos # (Auto) 0.1 (0.0-0.7) K/uL Baso # (Auto) 0.0 (0.0-0.1) K/uL Sodium 129 L (136-148) mmol/L Potassium 4.0 (3.5-5.1) mmol/L Chloride 100 (98-107) mmol/L Carbon Dioxide 24.6 (21.0-32.0) mmol/L BUN 3 L (7.0-18.0) mg/dL Creatinine 0.6 L (0.8-1.3) mg/dL Est Cr Clr Drug Dosing 114.94 mL/min Estimated GFR (MDRD) > 60.0 ml/min Glucose 112 H (74-106) mg/dL Calcium 7.8 L (8.5-10.1) mg/dL Phosphorus 2.2 L (2.6-4.7) mg/dL Magnesium 1.8 (1.8-2.4) mg/dL Paxton Results Last 24 Hours: Microbiology 02/24/18 13:19 Urine Culture - Final Urine, Clean Catch MIXED MORENA 1,000-10,000 CFU/ML 02/24/18 10:35 Aerobic Blood Culture - Preliminary Blood - Venous Anaerobic Blood Culture - Preliminary NO GROWTH AFTER 1 DAY 02/24/18 10:42 Aerobic Blood Culture - Preliminary Blood - Venous - Lab Draw NO GROWTH AFTER 1 DAY Anaerobic Blood Culture - Preliminary NO GROWTH AFTER 1 DAY 02/24/18 13:41 Gram Stain - Preliminary Sputum - Expectorated 02/24/18 15:07 Gram Stain - Preliminary Pleural Fluid Body Fluid Culture - Preliminary NO GROWTH AFTER 1 DAY Med Orders - Current: Current Medications Acetaminophen (Tylenol) 650 mg PO Q4H PRN PRN Reason: Pain (mild 1-3) Albuterol/Ipratropium (Duoneb 3.0-0.5 Mg/3 Ml) 3 ml NEB Q4HRRT [facility] Last Admin: 02/26/18 06:20 Dose: 3 ml Benzonatate (Tessalon Perles) 100 mg PO Q6H PRN PRN Reason: Cough Last Admin: 02/25/18 17:01 Dose: 100 mg Docusate Sodium (Colace) 100 mg PO BID PRN PRN Reason: Constipation Folic Acid (Folic Acid) 1 mg PO BEDTIME [facility] Last Admin: 02/25/18 21:46 Dose: 1 mg Levofloxacin/Dextrose 750 mg/ (Premix) 150 mls @ 100 mls/hr IV Q24H [facility] Last Admin: 02/25/18 16:29 Dose: 100 mls/hr Vancomycin HCl 1 gm/ Sodium (Chloride) 250 mls @ 166 mls/hr IV Q8H [facility] Last Admin: 02/26/18 01:55 Dose: 166 mls/hr Lorazepam (Ativan) 0 mg IVPUSH Q4H PRN; Protocol PRN Reason: CIWAA Morphine Sulfate (Morphine) 2 mg IVPUSH Q2H PRN PRN Reason: Pain (severe 7-10) Last Admin: 02/26/18 03:32 Dose: 2 mg Nicotine (Habitrol) 21 mg TRDERM DAILY [facility] Last Admin: 02/26/18 08:34 Dose: 21 mg Ondansetron HCl (Zofran) 4 mg IVPUSH Q4H PRN PRN Reason: Nausea Oxycodone HCl (Oxycodone) 5 mg PO Q4H PRN PRN Reason: Pain Last Admin: 02/25/18 23:37 Dose: 5 mg Pantoprazole Sodium (Protonix Iv) 40 mg IVPUSH Q24H [facility] Last Admin: 02/25/18 14:52 Dose: 40 mg Fluticasone/Salmeterol (Advair Diskus 250-50) 1 puff INH BID [facility] Last Admin: 02/25/18 21:17 Dose: 1 puff Sodium Chloride (Saline Flush) 10 ml FLUSH ASDIRECTED PRN PRN Reason: Keep Vein Open Sodium Chloride (Saline Flush) 2.5 ml FLUSH ASDIRECTED PRN PRN Reason: Keep Vein Open Sodium Phosphate (Neutra-Phos) 250 mg PO QID RAFAL Thiamine HCl (Vitamin B-1) 100 mg PO BEDTIME [facility] Last Admin: 02/25/18 21:46 Dose: 100 mg Vancomycin HCl (Pharmacy To Dose - Vancomycin) 1 dose .XX ASDIRECTED [facility] Discontinued Medications Albuterol/Ipratropium (Duoneb 3.0-0.5 Mg/3 Ml) 3 ml NEB Q4HRRT PRN PRN Reason: Shortness Of Breath/wheezing Multivitamins/Minerals 10 ml/Thiamine HCl 100 mg/ Folic Acid 1 mg/ Sodium Chloride 1,011.2 mls @ 999 mls/hr IV ONETIME ONE Stop: 02/24/18 11:24 Last Admin: 02/24/18 11:06 Dose: 999 mls/hr Magnesium Sulfate 2 gm/ Premix 50 mls @ 25 mls/hr IV ONETIME ONE Stop: 02/24/18 12:39 Last Admin: 02/24/18 11:06 Dose: 25 mls/hr Sodium Chloride (Normal Saline) 1,000 mls @ 100 mls/hr IV ASDIRECTED [facility] Last Admin: 02/24/18 16:04 Dose: 100 mls/hr Vancomycin HCl 1 gm/ Sodium (Chloride) 250 mls @ 166 mls/hr IV Q12H [facility] Last Admin: 02/25/18 02:33 Dose: 166 mls/hr Potassium Chloride/Sodium Chloride (Normal Saline With 40 Meq Kcl) 1,000 mls @ 100 mls/hr IV ASDIRECTED [facility] Stop: 02/26/18 00:59 Last Admin: 02/25/18 15:09 Dose: 100 mls/hr Magnesium Sulfate 2 gm/ Premix 50 mls @ 50 mls/hr IV ONETIME ONE Stop: 02/26/18 09:14 Last Admin: 02/26/18 08:34 Dose: 50 mls/hr Iopamidol (Isovue Multipack-370 (76%)) 75 ml IVPUSH ONETIME STA Stop: 02/24/18 15:50 Last Admin: 02/24/18 15:50 Dose: 75 ml Nicotine (Habitrol) 14 mg TRDERM ONETIME ONE Stop: 02/24/18 11:26 Last Admin: 02/24/18 11:34 Dose: 14 mg Potassium Chloride (Klor-Con M20) 40 meq PO ONETIME ONE Stop: 02/24/18 14:57 Last Admin: 02/24/18 16:06 Dose: 40 meq Potassium Chloride (Klor-Con M20) 40 meq PO BID@1500,1700 RAFAL Stop: 02/25/18 17:01 Last Admin: 02/25/18 17:00 Dose: 40 meq - Exam General: Alert, Oriented, Cooperative, No Acute Distress Lungs: Rhonchi Cardiovascular: Regular Rate, Regular Rhythm, No Murmurs GI/Abdominal Exam: Normal Bowel Sounds, Soft, Non-Tender, No Organomegaly Back Exam: Normal Inspection, Full Range of Motion Extremities: Normal Inspection, Normal Range of Motion, Non-Tender, No Pedal Edema Wound/Incisions: Decubitis (stage 1 buttock, encouraged to get up to chair and ambulate) Neurological: No New Focal Deficit Psy/Mental Status: Alert, Normal Affect, Normal Mood - Problem List & Annotations (1) Hyponatremia SNOMED Code(s): 44092343 Code(s): E87.1 - HYPO-OSMOLALITY AND HYPONATREMIA Status: Acute Current Visit: Yes (2) Pleural effusion SNOMED Code(s): 99004604 Code(s): J90 - PLEURAL EFFUSION, NOT ELSEWHERE CLASSIFIED Status: Acute Current Visit: Yes (3) Dyspnea SNOMED Code(s): 605079172 Code(s): R06.00 - DYSPNEA, UNSPECIFIED Status: Acute Current Visit: Yes (4) Total self-care deficit SNOMED Code(s): 52539066 Code(s): R41.89 - OTH SYMPTOMS AND SIGNS W COGNITIVE FUNCTIONS AND AWARENESS Status: Acute Current Visit: Yes (5) Generalized weakness SNOMED Code(s): 62909572 Code(s): R53.1 - WEAKNESS Status: Acute Current Visit: Yes (6) Protein malnutrition SNOMED Code(s): 390941918 Code(s): E46 - UNSPECIFIED PROTEIN-CALORIE MALNUTRITION Status: Acute Current Visit: Yes (7) Failure to thrive in adult SNOMED Code(s): 672477515 Code(s): R62.7 - ADULT FAILURE TO THRIVE Status: Acute Current Visit: Yes (8) Alcohol abuse SNOMED Code(s): 11069582 Code(s): F10.10 - ALCOHOL ABUSE, UNCOMPLICATED Status: Chronic Current Visit: Yes (9) Hx of deep venous thrombosis SNOMED Code(s): 540608532 Code(s): Z86.718 - PERSONAL HISTORY OF OTHER VENOUS THROMBOSIS AND EMBOLISM Status: Chronic Current Visit: Yes (10) COPD (chronic obstructive pulmonary disease) SNOMED Code(s): 27817232 Code(s): J44.9 - CHRONIC OBSTRUCTIVE PULMONARY DISEASE, UNSPECIFIED Status : Chronic Current Visit: Yes (11) Tobacco abuse SNOMED Code(s): 823366006 Code(s): Z72.0 - TOBACCO USE Status: Chronic Current Visit: Yes - Problem List Review Problem List Initiated/Reviewed/Updated: Yes - My Orders Last 24 Hours: My Active Orders 02/25/18 09:00 Nicotine [Habitrol] 21 mg TRDERM DAILY 02/25/18 09:01 Consult to Physical Therapy [PT Evaluation and Treatment] [CONS] Routine 02/25/18 10:41 Consult to Concrete Grinder Operator [CONS] Routine 02/26/18 09:50 LORazepam [Ativan] 0.5 mg PO Q8H PRN 02/26/18 12:00 Phosphorus #1 [Neutra-Phos] 250 mg PO QID 02/26/18 15:00 BMP [BASIC METABOLIC PANEL,BMP] [CHEM] Q12H 02/26/18 21:00 Mirtazapine [Remeron] 15 mg PO BEDTIME 02/27/18 03:00 BMP [BASIC METABOLIC PANEL,BMP] [CHEM] Q12H 02/27/18 05:11 CBC WITH AUTO DIFF [HEME] AM MAGNESIUM [CHEM] AM PHOSPHORUS [CHEM] AM 02/27/18 15:00 BMP [BASIC METABOLIC PANEL,BMP] [CHEM] Q12H 02/28/18 05:11 CBC WITH AUTO DIFF [HEME] AM MAGNESIUM [CHEM] AM PHOSPHORUS [CHEM] AM - Plan Plan:: This 57 year old male admitted with R sided pleural effusion and hyponatremia 1. Pleural effusion: Cytology and cultures still pending on pleural fluid. Continue Levaquin. Await pending fluid analysis. 2. Positive BC: 02/13 bottles returned last night with gram positive cocci in pairs and clusters, Vancomycin continued until further results. Will monitor. No fevers. 3. Hyponatremia: Improving. Na 129 this morning. Chekcing every 12hrs. Replacing magnesium and phos today as well. 4. Weakness: Chair bound at home per sisters and patient. hasn't walked much due to weakness. Will consult PT. He has been refusing PT. He is non ambulatory at this time and would need full assist at home due to total self care deficit. 5. Alcohol abuse: No signs of withdrawal. Place on CIWAA protocol. Supplement with Folic acid and Thiamine daily. 6.. Tobacco abuse: Nicotine patch, would like to quit and wants prescription for patch on discharge. 7. COPD: stable. but does have nebulizers. Continue Duoneb PRN. Psychiatric hold has been placed upon discharge for sisters to get him treatment in a psychiatric facility. VTE prophylaxis: Heparin Q12hr Dispo: 3-4 days pending improvement <Sachin Walter - Last Filed: 02/27/18 10:23> - General Info Admission Dx/Problem (Free Text): I have examined the patient independently of Aliyah Lowe CNP. I have discussed the case with her. I agree with the assessment and plan of care for this patient as outlined by her. Please see orders. - Patient Data Vitals - Most Recent: Last Vital Signs Temp 37.2 C 02/27/18 07:47 Pulse 84 02/27/18 07:47 Resp 20 02/27/18 07:47 BP 110/71 02/27/18 07:47 Pulse Ox 89 L 02/27/18 07:47 I&O - Last 24 Hours: Intake & Output 02/26/18 02/27/18 02/27/18 22:59 06:59 14:59 Intake Total 2240 2627 Output Total 1100 1385 Balance 1140 1242 Lab Results Last 24 Hours: Laboratory Results - last 24 hr 02/26/18 02/26/18 02/27/18 Range/Units 09:35 15:07 08:04 WBC 6.00 (4.0-11.0) K/uL RBC 3.03 L (4.50-5.90) M/uL Hgb 9.9 L (13.0-17.0) g/dL Hct 29.3 L (38.0-50.0) % MCV 96.7 (80.0-98.0) fL MCH 32.7 H (27.0-32.0) pg MCHC 33.8 (31.0-37.0) g/dL RDW Std Deviation 50.5 (28.0-62.0) fl RDW Coeff of Sage 14 (11.0-15.0) % Plt Count 152 (150-400) K/uL MPV 10.60 (7.40-12.00) fL Neut % (Auto) 74.5 (48.0-80.0) % Lymph % (Auto) 17.7 (16.0-40.0) % [place] % (Auto) 6.3 (0.0-15.0) % Eos % (Auto) 1.3 (0.0-7.0) % Baso % (Auto) 0.2 (0.0-1.5) % Neut # (Auto) 4.5 (1.4-5.7) K/uL Lymph # (Auto) 1.1 (0.6-2.4) K/uL [place] # (Auto) 0.4 (0.0-0.8) K/uL Eos # (Auto) 0.1 (0.0-0.7) K/uL Baso # (Auto) 0.0 (0.0-0.1) K/uL Nucleated RBC % 0.0 /100WBC Nucleated RBCs # 0 K/uL Sodium 125 L (136-148) mmol/L Potassium 4.0 (3.5-5.1) mmol/L Chloride 97 L (98-107) mmol/L Carbon Dioxide 22.3 (21.0-32.0) mmol/L BUN 2 L (7.0-18.0) mg/dL Creatinine 0.6 L (0.8-1.3) mg/dL Est Cr Clr Drug Dosing 118.98 mL/min Estimated GFR (MDRD) > 60.0 ml/min Glucose 106 (74-106) mg/dL Calcium 8.2 L (8.5-10.1) mg/dL Phosphorus (2.6-4.7) mg/dL Magnesium (1.8-2.4) mg/dL Vancomycin Trough 13.6 H (5.0-10.0) ug/mL 02/27/18 02/27/18 Range/Units 08:04 08:04 WBC (4.0-11.0) K/uL RBC (4.50-5.90) M/uL Hgb (13.0-17.0) g/dL Hct (38.0-50.0) % MCV (80.0-98.0) fL MCH (27.0-32.0) pg MCHC (31.0-37.0) g/dL RDW Std Deviation (28.0-62.0) fl RDW Coeff of Sage (11.0-15.0) % Plt Count (150-400) K/uL MPV (7.40-12.00) fL Neut % (Auto) (48.0-80.0) % Lymph % (Auto) (16.0-40.0) % [place] % (Auto) (0.0-15.0) % Eos % (Auto) (0.0-7.0) % Baso % (Auto) (0.0-1.5) % Neut # (Auto) (1.4-5.7) K/uL Lymph # (Auto) (0.6-2.4) K/uL [place] # (Auto) (0.0-0.8) K/uL Eos # (Auto) (0.0-0.7) K/uL Baso # (Auto) (0.0-0.1) K/uL Nucleated RBC % /100WBC Nucleated RBCs # K/uL Sodium 132 L (136-148) mmol/L Potassium 3.6 (3.5-5.1) mmol/L Chloride 101 (98-107) mmol/L Carbon Dioxide 23.3 (21.0-32.0) mmol/L BUN 2 L (7.0-18.0) mg/dL Creatinine 0.6 L (0.8-1.3) mg/dL Est Cr Clr Drug Dosing 120.85 mL/min Estimated GFR (MDRD) > 60.0 ml/min Glucose 98 (74-106) mg/dL Calcium 8.4 L (8.5-10.1) mg/dL Phosphorus 4.2 (2.6-4.7) mg/dL Magnesium 2.2 (1.8-2.4) mg/dL Vancomycin Trough (5.0-10.0) ug/mL Paxton Results Last 24 Hours: Microbiology 02/24/18 13:41 Gram Stain - Final Sputum - Expectorated Sputum Culture - Final Normal Respiratory Morena 02/24/18 10:35 Aerobic Blood Culture - Final Blood - Venous Anaerobic Blood Culture - Preliminary NO GROWTH AFTER 2 DAYS 02/24/18 15:07 Gram Stain - Preliminary Pleural Fluid Body Fluid Culture - Preliminary NO GROWTH AFTER 2 DAYS 02/24/18 10:42 Aerobic Blood Culture - Preliminary Blood - Venous - Lab Draw NO GROWTH AFTER 2 DAYS Anaerobic Blood Culture - Preliminary NO GROWTH AFTER 2 DAYS 02/24/18 13:19 Urine Culture - Final Urine, Clean Catch MIXED MORENA 1,000-10,000 CFU/ML Med Orders - Current: Current Medications Acetaminophen (Tylenol) 650 mg PO Q4H PRN PRN Reason: Pain (mild 1-3) Last Admin: 02/26/18 17:32 Dose: 650 mg Albuterol/Ipratropium (Duoneb 3.0-0.5 Mg/3 Ml) 3 ml NEB Q4HRRT [facility] Last Admin: 02/27/18 10:22 Dose: 3 ml Benzonatate (Tessalon Perles) 100 mg PO Q6H PRN PRN Reason: Cough Last Admin: 02/26/18 18:23 Dose: 100 mg Docusate Sodium (Colace) 100 mg PO BID PRN PRN Reason: Constipation Last Admin: 02/26/18 17:33 Dose: 100 mg Folic Acid (Folic Acid) 1 mg PO BEDTIME [facility] Last Admin: 02/26/18 20:39 Dose: 1 mg Heparin Sodium (Porcine) (Heparin Sodium) 5,000 units SUBCUT Q12H [facility] Last Admin: 02/26/18 21:58 Dose: 5,000 units Levofloxacin/Dextrose 750 mg/ (Premix) 150 mls @ 100 mls/hr IV Q24H [facility] Last Admin: 02/26/18 16:59 Dose: 100 mls/hr Sodium Chloride (Normal Saline) 1,000 mls @ 100 mls/hr IV ASDIRECTED [facility] Last Admin: 02/27/18 07:55 Dose: 100 mls/hr Lorazepam (Ativan) 0 mg IVPUSH Q4H PRN; Protocol PRN Reason: CIWAA Lorazepam (Ativan) 0.5 mg PO Q8H PRN PRN Reason: anxiety/agitation Mirtazapine (Remeron) 15 mg PO BEDTIME [facility] Last Admin: 02/26/18 20:39 Dose: 15 mg Morphine Sulfate (Morphine) 2 mg IVPUSH Q2H PRN PRN Reason: Pain (severe 7-10) Last Admin: 02/26/18 03:32 Dose: 2 mg Nicotine (Habitrol) 21 mg TRDERM DAILY [facility] Last Admin: 02/27/18 08:53 Dose: 21 mg Ondansetron HCl (Zofran) 4 mg IVPUSH Q4H PRN PRN Reason: Nausea Oxycodone HCl (Oxycodone) 5 mg PO Q4H PRN PRN Reason: Pain Last Admin: 02/26/18 21:57 Dose: 5 mg Pantoprazole Sodium (Protonix Iv) 40 mg IVPUSH Q24H [facility] Last Admin: 02/26/18 16:07 Dose: 40 mg Fluticasone/Salmeterol (Advair Diskus 250-50) 1 puff INH BID [facility] Last Admin: 02/26/18 20:39 Dose: 1 puff Sodium Chloride (Saline Flush) 10 ml FLUSH ASDIRECTED PRN PRN Reason: Keep Vein Open Sodium Chloride (Saline Flush) 2.5 ml FLUSH ASDIRECTED PRN PRN Reason: Keep Vein Open Thiamine HCl (Vitamin B-1) 100 mg PO BEDTIME [facility] Last Admin: 02/26/18 20:39 Dose: 100 mg Vancomycin HCl (Pharmacy To Dose - Vancomycin) 1 dose .XX ASDIRECTED [facility] Discontinued Medications Albuterol/Ipratropium (Duoneb 3.0-0.5 Mg/3 Ml) 3 ml NEB Q4HRRT PRN PRN Reason: Shortness Of Breath/wheezing Multivitamins/Minerals 10 ml/Thiamine HCl 100 mg/ Folic Acid 1 mg/ Sodium Chloride 1,011.2 mls @ 999 mls/hr IV ONETIME ONE Stop: 02/24/18 11:24 Last Admin: 02/24/18 11:06 Dose: 999 mls/hr Magnesium Sulfate 2 gm/ Premix 50 mls @ 25 mls/hr IV ONETIME ONE Stop: 02/24/18 12:39 Last Admin: 02/24/18 11:06 Dose: 25 mls/hr Sodium Chloride (Normal Saline) 1,000 mls @ 100 mls/hr IV ASDIRECTED [facility] Last Admin: 02/24/18 16:04 Dose: 100 mls/hr Vancomycin HCl 1 gm/ Sodium (Chloride) 250 mls @ 166 mls/hr IV Q12H [facility] Last Admin: 02/25/18 02:33 Dose: 166 mls/hr Vancomycin HCl 1 gm/ Sodium (Chloride) 250 mls @ 166 mls/hr IV Q8H [facility] Last Admin: 02/27/18 02:13 Dose: 166 mls/hr Potassium Chloride/Sodium Chloride (Normal Saline With 40 Meq Kcl) 1,000 mls @ 100 mls/hr IV ASDIRECTED [facility] Stop: 02/26/18 00:59 Last Admin: 02/25/18 15:09 Dose: 100 mls/hr Magnesium Sulfate 2 gm/ Premix 50 mls @ 50 mls/hr IV ONETIME ONE Stop: 02/26/18 09:14 Last Admin: 02/26/18 08:34 Dose: 50 mls/hr Iopamidol (Isovue Multipack-370 (76%)) 75 ml IVPUSH ONETIME STA Stop: 02/24/18 15:50 Last Admin: 02/24/18 15:50 Dose: 75 ml Nicotine (Habitrol) 14 mg TRDERM ONETIME ONE Stop: 02/24/18 11:26 Last Admin: 02/24/18 11:34 Dose: 14 mg Potassium Chloride (Klor-Con M20) 40 meq PO ONETIME ONE Stop: 02/24/18 14:57 Last Admin: 02/24/18 16:06 Dose: 40 meq Potassium Chloride (Klor-Con M20) 40 meq PO BID@1500,1700 [facility] Stop: 02/25/18 17:01 Last Admin: 02/25/18 17:00 Dose: 40 meq Sodium Phosphate (Neutra-Phos) 250 mg PO QID [facility] Last Admin: 02/26/18 17:55 Dose: Not Given Sodium Phosphate (Neutra-Phos) 250 mg PO QID [facility] Last Admin: 02/27/18 06:24 Dose: Not Given
[2018-02-26] MEDS: Fluticasone/Salmeterol 250-50 MCG Inhalation Powder 14/Diskus INH SCH ×2 (10:02→20:39)
[2018-02-26] MEDS: Heparin Sodium 5,000 Units/ML Vial SUBCUT SCH ×2 (11:06→21:58)
[2018-02-26] MEDS: oxyCODONE 5 MG Tab PO PRN ×2 (11:12→21:57)
[2018-02-26] MEDS ORDERED: Phosphorus #1 250 MG Tab PO SCH (12:00)
[2018-02-26 15:39] LABS: CHLORIDE,CL 97 mmol/L (98-107); SODIUM,NA 125 mmol/L (136-148)
[2018-02-26] MEDS: Pantoprazole 40 MG Vial IVPUSH SCH (16:07)
[2018-02-26] MEDS: Levofloxacin/Dextrose 5%-Water 750 MG in Premix Bag 1 BAG IV SCH (16:59)
[2018-02-26] MEDS: Phosphorus #1 250 MG Tab PO SCH ×2 (17:33→23:07)
[2018-02-26] MEDS: Benzonatate 100 MG Cap PO PRN (18:23)
[2018-02-26] MEDS: Sodium Chloride 0.9% 1,000 ML IV SCH (18:24)
[2018-02-26] MEDS: Mirtazapine 15 MG Tab PO SCH (20:39)
[2018-02-26] MEDS: Thiamine 100 MG Tab PO SCH (20:39)
[2018-02-26] MEDS: Folic Acid 1 MG Tab PO SCH (20:39)
[2018-02-27] MEDS: Albuterol/Ipratropium 3.0-0.5 MG/3 ML Neb Soln NEB SCH ×7 (02:13→21:10)
[2018-02-27] MEDS: Phosphorus #1 250 MG Tab PO SCH (06:24)
[2018-02-27] MEDS: Sodium Chloride 0.9% 1,000 ML IV SCH ×2 (07:55→22:03)
[2018-02-27 08:24] LABS: CHLORIDE,CL 101 mmol/L (98-107); SODIUM,NA 132 mmol/L (136-148)
--- NOTE | 2018-02-27 08:24 | PCM.PN ---
Addendum entered and electronically signed by Aliyah Lowe, [employer] 02/27/18 10:18 : BC returned with coagulase negative staph, likely contaminate. Will stop Vancomycin. CXR shows improvement. Will continue Levaquin and monitor. Original Note: <Aliyah Lowe - Last Filed: 02/27/18 09:21> - General Info Date of Service: 02/27/18 Admission Dx/Problem (Free Text): Admission Diagnosis/Problem Admission Diagnosis/Problem Hyponatremia Subjective Update: Does not want to talk this morning, had refused lab draws intially this morning , and just wants to sleep Will stop back and visit with him and his sisters. He allowed me to assess him. But refused to answer ROS questions. - Patient Data Vitals - Most Recent: Last Vital Signs Temp 99 F 02/27/18 07:47 Pulse 84 02/27/18 07:47 Resp 20 02/27/18 07:47 BP 110/71 02/27/18 07:47 Pulse Ox 89 L 02/27/18 07:47 Weight - Most Recent: 64.455 kg I&O - Last 24 Hours: Intake & Output 02/26/18 02/27/18 02/27/18 22:59 06:59 14:59 Intake Total 2240 2627 Output Total 1100 1385 Balance 1140 1242 Lab Results Last 24 Hours: Laboratory Results - last 24 hr 02/26/18 02/26/18 02/27/18 Range/Units 09:35 15:07 08:04 WBC 6.00 (4.0-11.0) K/uL RBC 3.03 L (4.50-5.90) M/uL Hgb 9.9 L (13.0-17.0) g/dL Hct 29.3 L (38.0-50.0) % MCV 96.7 (80.0-98.0) fL MCH 32.7 H (27.0-32.0) pg MCHC 33.8 (31.0-37.0) g/dL RDW Std Deviation 50.5 (28.0-62.0) fl RDW Coeff of Sage 14 (11.0-15.0) % Plt Count 152 (150-400) K/uL MPV 10.60 (7.40-12.00) fL Neut % (Auto) 74.5 (48.0-80.0) % Lymph % (Auto) 17.7 (16.0-40.0) % [place] % (Auto) 6.3 (0.0-15.0) % Eos % (Auto) 1.3 (0.0-7.0) % Baso % (Auto) 0.2 (0.0-1.5) % Neut # (Auto) 4.5 (1.4-5.7) K/uL Lymph # (Auto) 1.1 (0.6-2.4) K/uL [place] # (Auto) 0.4 (0.0-0.8) K/uL Eos # (Auto) 0.1 (0.0-0.7) K/uL Baso # (Auto) 0.0 (0.0-0.1) K/uL Nucleated RBC % 0.0 /100WBC Nucleated RBCs # 0 K/uL Sodium 125 L (136-148) mmol/L Potassium 4.0 (3.5-5.1) mmol/L Chloride 97 L (98-107) mmol/L Carbon Dioxide 22.3 (21.0-32.0) mmol/L BUN 2 L (7.0-18.0) mg/dL Creatinine 0.6 L (0.8-1.3) mg/dL Est Cr Clr Drug Dosing 118.98 mL/min Estimated GFR (MDRD) > 60.0 ml/min Glucose 106 (74-106) mg/dL Calcium 8.2 L (8.5-10.1) mg/dL Vancomycin Trough 13.6 H (5.0-10.0) ug/mL [place] Results Last 24 Hours: Microbiology 02/24/18 10:35 Aerobic Blood Culture - Final Blood - Venous Anaerobic Blood Culture - Preliminary NO GROWTH AFTER 2 DAYS 02/24/18 15:07 Gram Stain - Preliminary Pleural Fluid Body Fluid Culture - Preliminary NO GROWTH AFTER 2 DAYS 02/24/18 10:42 Aerobic Blood Culture - Preliminary Blood - Venous - Lab Draw NO GROWTH AFTER 2 DAYS Anaerobic Blood Culture - Preliminary NO GROWTH AFTER 2 DAYS 02/24/18 13:19 Urine Culture - Final Urine, Clean Catch MIXED MORENA 1,000-10,000 CFU/ML Med Orders - Current: Current Medications Acetaminophen (Tylenol) 650 mg PO Q4H PRN PRN Reason: Pain (mild 1-3) Last Admin: 02/26/18 17:32 Dose: 650 mg Albuterol/Ipratropium (Duoneb 3.0-0.5 Mg/3 Ml) 3 ml NEB Q4HRRT [facility] Last Admin: 02/27/18 06:19 Dose: Not Given Benzonatate (Tessalon Perles) 100 mg PO Q6H PRN PRN Reason: Cough Last Admin: 02/26/18 18:23 Dose: 100 mg Docusate Sodium (Colace) 100 mg PO BID PRN PRN Reason: Constipation Last Admin: 02/26/18 17:33 Dose: 100 mg Folic Acid (Folic Acid) 1 mg PO BEDTIME [facility] Last Admin: 02/26/18 20:39 Dose: 1 mg Heparin Sodium (Porcine) (Heparin Sodium) 5,000 units SUBCUT Q12H [facility] Last Admin: 02/26/18 21:58 Dose: 5,000 units Levofloxacin/Dextrose 750 mg/ (Premix) 150 mls @ 100 mls/hr IV Q24H [facility] Last Admin: 02/26/18 16:59 Dose: 100 mls/hr Vancomycin HCl 1 gm/ Sodium (Chloride) 250 mls @ 166 mls/hr IV Q8H [facility] Last Admin: 02/27/18 02:13 Dose: 166 mls/hr Sodium Chloride (Normal Saline) 1,000 mls @ 100 mls/hr IV ASDIRECTED [facility] Last Admin: 02/27/18 07:55 Dose: 100 mls/hr Lorazepam (Ativan) 0 mg IVPUSH Q4H PRN; Protocol PRN Reason: CIWAA Lorazepam (Ativan) 0.5 mg PO Q8H PRN PRN Reason: anxiety/agitation Mirtazapine (Remeron) 15 mg PO BEDTIME [facility] Last Admin: 02/26/18 20:39 Dose: 15 mg Morphine Sulfate (Morphine) 2 mg IVPUSH Q2H PRN PRN Reason: Pain (severe 7-10) Last Admin: 02/26/18 03:32 Dose: 2 mg Nicotine (Habitrol) 21 mg TRDERM DAILY [facility] Last Admin: 02/26/18 08:34 Dose: 21 mg Ondansetron HCl (Zofran) 4 mg IVPUSH Q4H PRN PRN Reason: Nausea Oxycodone HCl (Oxycodone) 5 mg PO Q4H PRN PRN Reason: Pain Last Admin: 02/26/18 21:57 Dose: 5 mg Pantoprazole Sodium (Protonix Iv) 40 mg IVPUSH Q24H [facility] Last Admin: 02/26/18 16:07 Dose: 40 mg Fluticasone/Salmeterol (Advair Diskus 250-50) 1 puff INH BID [facility] Last Admin: 02/26/18 20:39 Dose: 1 puff Sodium Chloride (Saline Flush) 10 ml FLUSH ASDIRECTED PRN PRN Reason: Keep Vein Open Sodium Chloride (Saline Flush) 2.5 ml FLUSH ASDIRECTED PRN PRN Reason: Keep Vein Open Sodium Phosphate (Neutra-Phos) 250 mg PO QID [facility] Last Admin: 02/27/18 06:24 Dose: Not Given Thiamine HCl (Vitamin B-1) 100 mg PO BEDTIME [facility] Last Admin: 02/26/18 20:39 Dose: 100 mg Vancomycin HCl (Pharmacy To Dose - Vancomycin) 1 dose .XX ASDIRECTED [facility] Discontinued Medications Albuterol/Ipratropium (Duoneb 3.0-0.5 Mg/3 Ml) 3 ml NEB Q4HRRT PRN PRN Reason: Shortness Of Breath/wheezing Multivitamins/Minerals 10 ml/Thiamine HCl 100 mg/ Folic Acid 1 mg/ Sodium Chloride 1,011.2 mls @ 999 mls/hr IV ONETIME ONE Stop: 02/24/18 11:24 Last Admin: 02/24/18 11:06 Dose: 999 mls/hr Magnesium Sulfate 2 gm/ Premix 50 mls @ 25 mls/hr IV ONETIME ONE Stop: 02/24/18 12:39 Last Admin: 02/24/18 11:06 Dose: 25 mls/hr Sodium Chloride (Normal Saline) 1,000 mls @ 100 mls/hr IV ASDIRECTED [facility] Last Admin: 02/24/18 16:04 Dose: 100 mls/hr Vancomycin HCl 1 gm/ Sodium (Chloride) 250 mls @ 166 mls/hr IV Q12H [facility] Last Admin: 02/25/18 02:33 Dose: 166 mls/hr Potassium Chloride/Sodium Chloride (Normal Saline With 40 Meq Kcl) 1,000 mls @ 100 mls/hr IV ASDIRECTED [facility] Stop: 02/26/18 00:59 Last Admin: 02/25/18 15:09 Dose: 100 mls/hr Magnesium Sulfate 2 gm/ Premix 50 mls @ 50 mls/hr IV ONETIME ONE Stop: 02/26/18 09:14 Last Admin: 02/26/18 08:34 Dose: 50 mls/hr Iopamidol (Isovue Multipack-370 (76%)) 75 ml IVPUSH ONETIME STA Stop: 02/24/18 15:50 Last Admin: 02/24/18 15:50 Dose: 75 ml Nicotine (Habitrol) 14 mg TRDERM ONETIME ONE Stop: 02/24/18 11:26 Last Admin: 02/24/18 11:34 Dose: 14 mg Potassium Chloride (Klor-Con M20) 40 meq PO ONETIME ONE Stop: 02/24/18 14:57 Last Admin: 02/24/18 16:06 Dose: 40 meq Potassium Chloride (Klor-Con M20) 40 meq PO BID@1500,1700 [facility] Stop: 02/25/18 17:01 Last Admin: 02/25/18 17:00 Dose: 40 meq Sodium Phosphate (Neutra-Phos) 250 mg PO QID [facility] Last Admin: 02/26/18 17:55 Dose: Not Given - Exam Quality Assessment: DVT Prophylaxis. No: Supplemental Oxygen General: Alert, Oriented, No Acute Distress. No: Cooperative Neck: Supple Lungs: Normal Respiratory Effort, Rhonchi Cardiovascular: Regular Rate, Regular Rhythm. No: No Murmurs GI/Abdominal Exam: Normal Bowel Sounds, Soft, Non-Tender Extremities: Normal Inspection, Normal Range of Motion, Non-Tender, Pedal Edema (scant edema to +1) Neurological: No New Focal Deficit Psy/Mental Status: Alert, Normal Affect, Normal Mood - Problem List & Annotations (1) Hyponatremia SNOMED Code(s): 25432026 Code(s): E87.1 - HYPO-OSMOLALITY AND HYPONATREMIA Status: Acute Current Visit: Yes (2) Pleural effusion SNOMED Code(s): 85301621 Code(s): J90 - PLEURAL EFFUSION, NOT ELSEWHERE CLASSIFIED Status: Acute Current Visit: Yes (3) Dyspnea SNOMED Code(s): 109848932 Code(s): R06.00 - DYSPNEA, UNSPECIFIED Status: Acute Current Visit: Yes (4) Total self-care deficit SNOMED Code(s): 01860205 Code(s): R41.89 - OTH SYMPTOMS AND SIGNS W COGNITIVE FUNCTIONS AND AWARENESS Status: Acute Current Visit: Yes (5) Generalized weakness SNOMED Code(s): 48107289 Code(s): R53.1 - WEAKNESS Status: Acute Current Visit: Yes (6) Protein malnutrition SNOMED Code(s): 959711784 Code(s): E46 - UNSPECIFIED PROTEIN-CALORIE MALNUTRITION Status: Acute Current Visit: Yes (7) Failure to thrive in adult SNOMED Code(s): 966146935 Code(s): R62.7 - ADULT FAILURE TO THRIVE Status: Acute Current Visit: Yes (8) Alcohol abuse SNOMED Code(s): 83645910 Code(s): F10.10 - ALCOHOL ABUSE, UNCOMPLICATED Status: Chronic Current Visit: Yes (9) Hx of deep venous thrombosis SNOMED Code(s): 093043398 Code(s): Z86.718 - PERSONAL HISTORY OF OTHER VENOUS THROMBOSIS AND EMBOLISM Status: Chronic Current Visit: Yes (10) COPD (chronic obstructive pulmonary disease) SNOMED Code(s): 95673161 Code(s): J44.9 - CHRONIC OBSTRUCTIVE PULMONARY DISEASE, UNSPECIFIED Status : Chronic Current Visit: Yes (11) Tobacco abuse SNOMED Code(s): 465277176 Code(s): Z72.0 - TOBACCO USE Status: Chronic Current Visit: Yes - Problem List Review Problem List Initiated/Reviewed/Updated: Yes - My Orders Last 24 Hours: My Active Orders 02/26/18 09:50 LORazepam [Ativan] 0.5 mg PO Q8H PRN 02/26/18 10:01 Up to Chair [RC] ASDIRECTED 02/26/18 10:45 Heparin Sodium 5,000 units SUBCUT Q12H 02/26/18 16:00 Sodium Chloride 0.9% [Normal Saline] 1,000 ml IV ASDIRECTED 02/26/18 18:00 Phosphorus #1 [Neutra-Phos] 250 mg PO QID 02/26/18 21:00 Mirtazapine [Remeron] 15 mg PO BEDTIME 02/27/18 07:00 Chest 1V Frontal [CR] Timed 02/27/18 08:04 BMP [BASIC METABOLIC PANEL,BMP] [CHEM] Q12H MAGNESIUM [CHEM] AM PHOSPHORUS [CHEM] AM 02/27/18 15:00 BMP [BASIC METABOLIC PANEL,BMP] [CHEM] Q12H 02/28/18 05:11 CBC WITH AUTO DIFF [HEME] AM MAGNESIUM [CHEM] AM PHOSPHORUS [CHEM] AM - Plan Plan:: This 57 year old male admitted with R sided pleural effusion and hyponatremia 1. Pleural effusion: Cytology reveals no malignant cells, only blood and reactive mesothelial cells noted. Cultures negative for pleural fluid. Continue Levaquin. Consider parapneumonic pleural effusion, repeat CXR this morning to evaluate. 2. Positive BC: 02/13 bottles returned with gram positive cocci in pairs and clusters, Vancomycin continued. Still awaiting MIS. Consider contaminate. Will monitor. No fevers. 3. Hyponatremia: Improving. NS restarted due to dip of Na to 125 yesterday afternoon. Na 132 this morning. Checking every 12hrs. 4. Weakness: Continues to refuse PT and attempted to discuss with him getting to the chair for meals and starting to ambulate. He refuses, states he doesn't want to. 5. Alcohol abuse: No signs of withdrawal. Place on CIWAA protocol. Supplement with Folic acid and Thiamine daily. 6. Tobacco abuse: Nicotine patch, would like to quit and wants prescription for patch on discharge. 7. COPD: stable. but does have nebulizers. Continue Duoneb PRN. Psychiatric hold has been placed upon discharge for sisters to get him treatment in a psychiatric facility. VTE prophylaxis: Heparin Q12hr Dispo: 3-4 days pending improvement <Sachin Walter - Last Filed: 02/27/18 10:25> - General Info Admission Dx/Problem (Free Text): I have examined the patient independently of Aliyah Lowe CNP. I have discussed the case with her. I agree with the assessment and plan of care for this patient as outlined by her. Please see orders. Placement can be a consideration. Consider the patient to be unable to meet ADL's. - Patient Data Vitals - Most Recent: Last Vital Signs Temp 37.2 C 02/27/18 07:47 Pulse 84 02/27/18 07:47 Resp 20 02/27/18 07:47 BP 110/71 02/27/18 07:47 Pulse Ox 89 L 02/27/18 07:47 I&O - Last 24 Hours: Intake & Output 02/26/18 02/27/18 02/27/18 22:59 06:59 14:59 Intake Total 2240 2627 Output Total 1100 1385 Balance 1140 1242 Lab Results Last 24 Hours: Laboratory Results - last 24 hr 02/26/18 02/26/18 02/27/18 Range/Units 09:35 15:07 08:04 WBC 6.00 (4.0-11.0) K/uL RBC 3.03 L (4.50-5.90) M/uL Hgb 9.9 L (13.0-17.0) g/dL Hct 29.3 L (38.0-50.0) % MCV 96.7 (80.0-98.0) fL MCH 32.7 H (27.0-32.0) pg MCHC 33.8 (31.0-37.0) g/dL RDW Std Deviation 50.5 (28.0-62.0) fl RDW Coeff of Sage 14 (11.0-15.0) % Plt Count 152 (150-400) K/uL MPV 10.60 (7.40-12.00) fL Neut % (Auto) 74.5 (48.0-80.0) % Lymph % (Auto) 17.7 (16.0-40.0) % [place] % (Auto) 6.3 (0.0-15.0) % Eos % (Auto) 1.3 (0.0-7.0) % Baso % (Auto) 0.2 (0.0-1.5) % Neut # (Auto) 4.5 (1.4-5.7) K/uL Lymph # (Auto) 1.1 (0.6-2.4) K/uL [place] # (Auto) 0.4 (0.0-0.8) K/uL Eos # (Auto) 0.1 (0.0-0.7) K/uL Baso # (Auto) 0.0 (0.0-0.1) K/uL Nucleated RBC % 0.0 /100WBC Nucleated RBCs # 0 K/uL Sodium 125 L (136-148) mmol/L Potassium 4.0 (3.5-5.1) mmol/L Chloride 97 L (98-107) mmol/L Carbon Dioxide 22.3 (21.0-32.0) mmol/L BUN 2 L (7.0-18.0) mg/dL Creatinine 0.6 L (0.8-1.3) mg/dL Est Cr Clr Drug Dosing 118.98 mL/min Estimated GFR (MDRD) > 60.0 ml/min Glucose 106 (74-106) mg/dL Calcium 8.2 L (8.5-10.1) mg/dL Phosphorus (2.6-4.7) mg/dL Magnesium (1.8-2.4) mg/dL Vancomycin Trough 13.6 H (5.0-10.0) ug/mL 02/27/18 02/27/18 Range/Units 08:04 08:04 WBC (4.0-11.0) K/uL RBC (4.50-5.90) M/uL Hgb (13.0-17.0) g/dL Hct (38.0-50.0) % MCV (80.0-98.0) fL MCH (27.0-32.0) pg MCHC (31.0-37.0) g/dL RDW Std Deviation (28.0-62.0) fl RDW Coeff of Sage (11.0-15.0) % Plt Count (150-400) K/uL MPV (7.40-12.00) fL Neut % (Auto) (48.0-80.0) % Lymph % (Auto) (16.0-40.0) % [place] % (Auto) (0.0-15.0) % Eos % (Auto) (0.0-7.0) % Baso % (Auto) (0.0-1.5) % Neut # (Auto) (1.4-5.7) K/uL Lymph # (Auto) (0.6-2.4) K/uL [place] # (Auto) (0.0-0.8) K/uL Eos # (Auto) (0.0-0.7) K/uL Baso # (Auto) (0.0-0.1) K/uL Nucleated RBC % /100WBC Nucleated RBCs # K/uL Sodium 132 L (136-148) mmol/L Potassium 3.6 (3.5-5.1) mmol/L Chloride 101 (98-107) mmol/L Carbon Dioxide 23.3 (21.0-32.0) mmol/L BUN 2 L (7.0-18.0) mg/dL Creatinine 0.6 L (0.8-1.3) mg/dL Est Cr Clr Drug Dosing 120.85 mL/min Estimated GFR (MDRD) > 60.0 ml/min Glucose 98 (74-106) mg/dL Calcium 8.4 L (8.5-10.1) mg/dL Phosphorus 4.2 (2.6-4.7) mg/dL Magnesium 2.2 (1.8-2.4) mg/dL Vancomycin Trough (5.0-10.0) ug/mL [place] Results Last 24 Hours: Microbiology 02/24/18 13:41 Gram Stain - Final Sputum - Expectorated Sputum Culture - Final Normal Respiratory Morena 02/24/18 10:35 Aerobic Blood Culture - Final Blood - Venous Anaerobic Blood Culture - Preliminary NO GROWTH AFTER 2 DAYS 02/24/18 15:07 Gram Stain - Preliminary Pleural Fluid Body Fluid Culture - Preliminary NO GROWTH AFTER 2 DAYS 02/24/18 10:42 Aerobic Blood Culture - Preliminary Blood - Venous - Lab Draw NO GROWTH AFTER 2 DAYS Anaerobic Blood Culture - Preliminary NO GROWTH AFTER 2 DAYS 02/24/18 13:19 Urine Culture - Final Urine, Clean Catch MIXED MORENA 1,000-10,000 CFU/ML Med Orders - Current: Current Medications Acetaminophen (Tylenol) 650 mg PO Q4H PRN PRN Reason: Pain (mild 1-3) Last Admin: 02/26/18 17:32 Dose: 650 mg Albuterol/Ipratropium (Duoneb 3.0-0.5 Mg/3 Ml) 3 ml NEB Q4HRRT [facility] Last Admin: 02/27/18 10:22 Dose: 3 ml Benzonatate (Tessalon Perles) 100 mg PO Q6H PRN PRN Reason: Cough Last Admin: 02/26/18 18:23 Dose: 100 mg Docusate Sodium (Colace) 100 mg PO BID PRN PRN Reason: Constipation Last Admin: 02/26/18 17:33 Dose: 100 mg Folic Acid (Folic Acid) 1 mg PO BEDTIME [facility] Last Admin: 02/26/18 20:39 Dose: 1 mg Heparin Sodium (Porcine) (Heparin Sodium) 5,000 units SUBCUT Q12H [facility] Last Admin: 02/26/18 21:58 Dose: 5,000 units Levofloxacin/Dextrose 750 mg/ (Premix) 150 mls @ 100 mls/hr IV Q24H [facility] Last Admin: 02/26/18 16:59 Dose: 100 mls/hr Sodium Chloride (Normal Saline) 1,000 mls @ 100 mls/hr IV ASDIRECTED [facility] Last Admin: 02/27/18 07:55 Dose: 100 mls/hr Lorazepam (Ativan) 0 mg IVPUSH Q4H PRN; Protocol PRN Reason: CIWAA Lorazepam (Ativan) 0.5 mg PO Q8H PRN PRN Reason: anxiety/agitation Mirtazapine (Remeron) 15 mg PO BEDTIME [facility] Last Admin: 02/26/18 20:39 Dose: 15 mg Morphine Sulfate (Morphine) 2 mg IVPUSH Q2H PRN PRN Reason: Pain (severe 7-10) Last Admin: 02/26/18 03:32 Dose: 2 mg Nicotine (Habitrol) 21 mg TRDERM DAILY [facility] Last Admin: 02/27/18 08:53 Dose: 21 mg Ondansetron HCl (Zofran) 4 mg IVPUSH Q4H PRN PRN Reason: Nausea Oxycodone HCl (Oxycodone) 5 mg PO Q4H PRN PRN Reason: Pain Last Admin: 02/26/18 21:57 Dose: 5 mg Pantoprazole Sodium (Protonix Iv) 40 mg IVPUSH Q24H [facility] Last Admin: 02/26/18 16:07 Dose: 40 mg Fluticasone/Salmeterol (Advair Diskus 250-50) 1 puff INH BID [facility] Last Admin: 02/26/18 20:39 Dose: 1 puff Sodium Chloride (Saline Flush) 10 ml FLUSH ASDIRECTED PRN PRN Reason: Keep Vein Open Sodium Chloride (Saline Flush) 2.5 ml FLUSH ASDIRECTED PRN PRN Reason: Keep Vein Open Thiamine HCl (Vitamin B-1) 100 mg PO BEDTIME [facility] Last Admin: 02/26/18 20:39 Dose: 100 mg Vancomycin HCl (Pharmacy To Dose - Vancomycin) 1 dose .XX ASDIRECTED [facility] Discontinued Medications Albuterol/Ipratropium (Duoneb 3.0-0.5 Mg/3 Ml) 3 ml NEB Q4HRRT PRN PRN Reason: Shortness Of Breath/wheezing Multivitamins/Minerals 10 ml/Thiamine HCl 100 mg/ Folic Acid 1 mg/ Sodium Chloride 1,011.2 mls @ 999 mls/hr IV ONETIME ONE Stop: 02/24/18 11:24 Last Admin: 02/24/18 11:06 Dose: 999 mls/hr Magnesium Sulfate 2 gm/ Premix 50 mls @ 25 mls/hr IV ONETIME ONE Stop: 02/24/18 12:39 Last Admin: 02/24/18 11:06 Dose: 25 mls/hr Sodium Chloride (Normal Saline) 1,000 mls @ 100 mls/hr IV ASDIRECTED [facility] Last Admin: 02/24/18 16:04 Dose: 100 mls/hr Vancomycin HCl 1 gm/ Sodium (Chloride) 250 mls @ 166 mls/hr IV Q12H [facility] Last Admin: 02/25/18 02:33 Dose: 166 mls/hr Vancomycin HCl 1 gm/ Sodium (Chloride) 250 mls @ 166 mls/hr IV Q8H [facility] Last Admin: 02/27/18 02:13 Dose: 166 mls/hr Potassium Chloride/Sodium Chloride (Normal Saline With 40 Meq Kcl) 1,000 mls @ 100 mls/hr IV ASDIRECTED [facility] Stop: 02/26/18 00:59 Last Admin: 02/25/18 15:09 Dose: 100 mls/hr Magnesium Sulfate 2 gm/ Premix 50 mls @ 50 mls/hr IV ONETIME ONE Stop: 02/26/18 09:14 Last Admin: 02/26/18 08:34 Dose: 50 mls/hr Iopamidol (Isovue Multipack-370 (76%)) 75 ml IVPUSH ONETIME STA Stop: 02/24/18 15:50 Last Admin: 02/24/18 15:50 Dose: 75 ml Nicotine (Habitrol) 14 mg TRDERM ONETIME ONE Stop: 02/24/18 11:26 Last Admin: 02/24/18 11:34 Dose: 14 mg Potassium Chloride (Klor-Con M20) 40 meq PO ONETIME ONE Stop: 02/24/18 14:57 Last Admin: 02/24/18 16:06 Dose: 40 meq Potassium Chloride (Klor-Con M20) 40 meq PO BID@1500,1700 [facility] Stop: 02/25/18 17:01 Last Admin: 02/25/18 17:00 Dose: 40 meq Sodium Phosphate (Neutra-Phos) 250 mg PO QID [facility] Last Admin: 02/26/18 17:55 Dose: Not Given Sodium Phosphate (Neutra-Phos) 250 mg PO QID [facility] Last Admin: 02/27/18 06:24 Dose: Not Given
[2018-02-27] MEDS: Nicotine 21 MG/24 Hr Patch TRDERM SCH (08:53)
--- NOTE | 2018-02-27 10:09 | CR ---
EXAMINATION: Portable chest radiograph. HISTORY: Pleural effusion. FINDINGS: The trachea is midline. The cardiomediastinal silhouette is within normal limits. As a moderate persistent right pleural effusion with adjacent atelectasis and/or infiltrate. Osseous structures appear unremarkable. IMPRESSION: 1. Moderate right pleural effusion.
[2018-02-27] MEDS: Fluticasone/Salmeterol 250-50 MCG Inhalation Powder 14/Diskus INH SCH ×2 (10:28→21:09)
[2018-02-27] MEDS: Heparin Sodium 5,000 Units/ML Vial SUBCUT SCH ×2 (10:33→22:39)
[2018-02-27] MEDS: oxyCODONE 5 MG Tab PO PRN ×3 (10:50→22:38)
[2018-02-27] MEDS ORDERED: Temazepam 15 MG Cap PO PRN (13:10)
[2018-02-27] MEDS: Morphine 2 MG/ML Syringe IVPUSH PRN (14:01)
[2018-02-27] MEDS: Pantoprazole 40 MG Vial IVPUSH SCH (15:36)
[2018-02-27] MEDS: Levofloxacin/Dextrose 5%-Water 750 MG in Premix Bag 1 BAG IV SCH (17:05)
[2018-02-27] MEDS: Folic Acid 1 MG Tab PO SCH (21:10)
[2018-02-27] MEDS: Mirtazapine 15 MG Tab PO SCH (21:10)
[2018-02-27] MEDS: Thiamine 100 MG Tab PO SCH (21:10)
[2018-02-28] MEDS: Albuterol/Ipratropium 3.0-0.5 MG/3 ML Neb Soln NEB SCH ×6 (01:51→20:59)
[2018-02-28] MEDS: oxyCODONE 5 MG Tab PO PRN ×4 (03:47→20:32)
[2018-02-28 06:28] LABS: CHLORIDE,CL 101 mmol/L (98-107); SODIUM,NA 133 mmol/L (136-148)
[2018-02-28] MEDS ORDERED: Potassium Chloride 20 MEQ Tab.ER PO ONE (06:56)
[2018-02-28] MEDS: Sodium Chloride 0.9% 1,000 ML IV SCH ×2 (08:11→20:13)
--- NOTE | 2018-02-28 08:20 | PCM.PN ---
<Damaso Christopher - Last Filed: 02/28/18 08:18> - General Info Date of Service: 02/28/18 Subjective Update: Cooperative this morning, able to answer questions appropriately. Says he got poor sleep last night, but denies any new issues such as worsening pain, shortness of breath, subjective fever. - Review of Systems General: Reports: Other (see hpi) - Patient Data Vitals - Most Recent: Last Vital Signs Temp 37.2 C 02/28/18 07:35 Pulse 88 02/28/18 07:35 Resp 17 02/28/18 07:35 BP 114/70 02/28/18 07:35 Pulse Ox 94 L 02/28/18 07:35 Weight - Most Recent: 65.771 kg I&O - Last 24 Hours: Intake & Output 02/27/18 02/28/18 02/28/18 22:59 06:59 14:59 Intake Total 1384 2265 Output Total 650 675 Balance 734 1590 Lab Results Last 24 Hours: Laboratory Results - last 24 hr 02/27/18 02/27/18 02/28/18 Range/Units 08:04 08:04 05:51 WBC 5.38 (4.0-11.0) K/uL RBC 2.88 L (4.50-5.90) M/uL Hgb 9.1 L (13.0-17.0) g/dL Hct 28.2 L (38.0-50.0) % MCV 97.9 (80.0-98.0) fL MCH 31.6 (27.0-32.0) pg MCHC 32.3 (31.0-37.0) g/dL RDW Std Deviation 52.5 (28.0-62.0) fl RDW Coeff of Sage 15 (11.0-15.0) % Plt Count 144 L (150-400) K/uL MPV 10.30 (7.40-12.00) fL Neut % (Auto) 73.4 (48.0-80.0) % Lymph % (Auto) 18.0 (16.0-40.0) % Moca % (Auto) 6.9 (0.0-15.0) % Eos % (Auto) 1.5 (0.0-7.0) % Baso % (Auto) 0.2 (0.0-1.5) % Neut # (Auto) 4.0 (1.4-5.7) K/uL Lymph # (Auto) 1.0 (0.6-2.4) K/uL Moca # (Auto) 0.4 (0.0-0.8) K/uL Eos # (Auto) 0.1 (0.0-0.7) K/uL Baso # (Auto) 0.0 (0.0-0.1) K/uL Nucleated RBC % 0.0 /100WBC Nucleated RBCs # 0 K/uL Sodium 132 L (136-148) mmol/L Potassium 3.6 (3.5-5.1) mmol/L Chloride 101 (98-107) mmol/L Carbon Dioxide 23.3 (21.0-32.0) mmol/L BUN 2 L (7.0-18.0) mg/dL Creatinine 0.6 L (0.8-1.3) mg/dL Est Cr Clr Drug Dosing 120.85 mL/min Estimated GFR (MDRD) > 60.0 ml/min Glucose 98 (74-106) mg/dL Calcium 8.4 L (8.5-10.1) mg/dL Phosphorus 4.2 (2.6-4.7) mg/dL Magnesium 2.2 (1.8-2.4) mg/dL 02/28/18 Range/Units 05:51 WBC (4.0-11.0) K/uL RBC (4.50-5.90) M/uL Hgb (13.0-17.0) g/dL Hct (38.0-50.0) % MCV (80.0-98.0) fL MCH (27.0-32.0) pg MCHC (31.0-37.0) g/dL RDW Std Deviation (28.0-62.0) fl RDW Coeff of Sage (11.0-15.0) % Plt Count (150-400) K/uL MPV (7.40-12.00) fL Neut % (Auto) (48.0-80.0) % Lymph % (Auto) (16.0-40.0) % Moca % (Auto) (0.0-15.0) % Eos % (Auto) (0.0-7.0) % Baso % (Auto) (0.0-1.5) % Neut # (Auto) (1.4-5.7) K/uL Lymph # (Auto) (0.6-2.4) K/uL Moca # (Auto) (0.0-0.8) K/uL Eos # (Auto) (0.0-0.7) K/uL Baso # (Auto) (0.0-0.1) K/uL Nucleated RBC % /100WBC Nucleated RBCs # K/uL Sodium 133 L (136-148) mmol/L Potassium 3.1 L (3.5-5.1) mmol/L Chloride 101 (98-107) mmol/L Carbon Dioxide 24.7 (21.0-32.0) mmol/L BUN 2 L (7.0-18.0) mg/dL Creatinine 0.7 L (0.8-1.3) mg/dL Est Cr Clr Drug Dosing 105.70 mL/min Estimated GFR (MDRD) > 60.0 ml/min Glucose 119 H (74-106) mg/dL Calcium 7.9 L (8.5-10.1) mg/dL Phosphorus 3.3 (2.6-4.7) mg/dL Magnesium 1.8 (1.8-2.4) mg/dL [place]xton Results Last 24 Hours: Microbiology 02/24/18 10:42 Aerobic Blood Culture - Preliminary Blood - Venous - Lab Draw NO GROWTH AFTER 3 DAYS Anaerobic Blood Culture - Preliminary NO GROWTH AFTER 3 DAYS 02/24/18 15:07 Gram Stain - Final Pleural Fluid Body Fluid Culture - Final NO GROWTH AFTER 3 DAYS 02/24/18 10:35 Aerobic Blood Culture - Final Blood - Venous Anaerobic Blood Culture - Preliminary NO GROWTH AFTER 3 DAYS 02/24/18 13:41 Gram Stain - Final Sputum - Expectorated Sputum Culture - Final Normal Respiratory Deidre Med Orders - Current: Current Medications Acetaminophen (Tylenol) 650 mg PO Q4H PRN PRN Reason: Pain (mild 1-3) Last Admin: 02/26/18 17:32 Dose: 650 mg Albuterol/Ipratropium (Duoneb 3.0-0.5 Mg/3 Ml) 3 ml NEB Q4HRRT [facility] Last Admin: 02/28/18 06:17 Dose: 3 ml Benzonatate (Tessalon Perles) 100 mg PO Q6H PRN PRN Reason: Cough Last Admin: 02/26/18 18:23 Dose: 100 mg Docusate Sodium (Colace) 100 mg PO BID PRN PRN Reason: Constipation Last Admin: 02/26/18 17:33 Dose: 100 mg Folic Acid (Folic Acid) 1 mg PO BEDTIME [facility] Last Admin: 02/27/18 21:10 Dose: 1 mg Heparin Sodium (Porcine) (Heparin Sodium) 5,000 units SUBCUT Q12H [facility] Last Admin: 02/27/18 22:39 Dose: 5,000 units Levofloxacin/Dextrose 750 mg/ (Premix) 150 mls @ 100 mls/hr IV Q24H [facility] Last Admin: 02/27/18 17:05 Dose: 100 mls/hr Sodium Chloride (Normal Saline) 1,000 mls @ 100 mls/hr IV ASDIRECTED [facility] Last Admin: 02/28/18 08:11 Dose: 100 mls/hr Lorazepam (Ativan) 0 mg IVPUSH Q4H PRN; Protocol PRN Reason: CIWAA Lorazepam (Ativan) 0.5 mg PO Q8H PRN PRN Reason: anxiety/agitation Mirtazapine (Remeron) 15 mg PO BEDTIME [facility] Last Admin: 02/27/18 21:10 Dose: 15 mg Morphine Sulfate (Morphine) 2 mg IVPUSH Q2H PRN PRN Reason: Pain (severe 7-10) Last Admin: 02/27/18 14:01 Dose: 2 mg Nicotine (Habitrol) 21 mg TRDERM DAILY [facility] Last Admin: 02/27/18 08:53 Dose: 21 mg Ondansetron HCl (Zofran) 4 mg IVPUSH Q4H PRN PRN Reason: Nausea Oxycodone HCl (Oxycodone) 5 mg PO Q4H PRN PRN Reason: Pain Last Admin: 02/28/18 03:47 Dose: 5 mg Pantoprazole Sodium (Protonix Iv) 40 mg IVPUSH Q24H [facility] Last Admin: 02/27/18 15:36 Dose: 40 mg Fluticasone/Salmeterol (Advair Diskus 250-50) 1 puff INH BID [facility] Last Admin: 02/27/18 21:09 Dose: 1 puff Sodium Chloride (Saline Flush) 10 ml FLUSH ASDIRECTED PRN PRN Reason: Keep Vein Open Sodium Chloride (Saline Flush) 2.5 ml FLUSH ASDIRECTED PRN PRN Reason: Keep Vein Open Temazepam (Restoril) 15 mg PO BEDTIME PRN PRN Reason: Sleep Thiamine HCl (Vitamin B-1) 100 mg PO BEDTIME [facility] Last Admin: 02/27/18 21:10 Dose: 100 mg Vancomycin HCl (Pharmacy To Dose - Vancomycin) 1 dose .XX ASDIRECTED [facility] Discontinued Medications Albuterol/Ipratropium (Duoneb 3.0-0.5 Mg/3 Ml) 3 ml NEB Q4HRRT PRN PRN Reason: Shortness Of Breath/wheezing Multivitamins/Minerals 10 ml/Thiamine HCl 100 mg/ Folic Acid 1 mg/ Sodium Chloride 1,011.2 mls @ 999 mls/hr IV ONETIME ONE Stop: 02/24/18 11:24 Last Admin: 02/24/18 11:06 Dose: 999 mls/hr Magnesium Sulfate 2 gm/ Premix 50 mls @ 25 mls/hr IV ONETIME ONE Stop: 02/24/18 12:39 Last Admin: 02/24/18 11:06 Dose: 25 mls/hr Sodium Chloride (Normal Saline) 1,000 mls @ 100 mls/hr IV ASDIRECTED [facility] Last Admin: 02/24/18 16:04 Dose: 100 mls/hr Vancomycin HCl 1 gm/ Sodium (Chloride) 250 mls @ 166 mls/hr IV Q12H [facility] Last Admin: 02/25/18 02:33 Dose: 166 mls/hr Vancomycin HCl 1 gm/ Sodium (Chloride) 250 mls @ 166 mls/hr IV Q8H [facility] Last Admin: 02/27/18 02:13 Dose: 166 mls/hr Potassium Chloride/Sodium Chloride (Normal Saline With 40 Meq Kcl) 1,000 mls @ 100 mls/hr IV ASDIRECTED [facility] Stop: 02/26/18 00:59 Last Admin: 02/25/18 15:09 Dose: 100 mls/hr Magnesium Sulfate 2 gm/ Premix 50 mls @ 50 mls/hr IV ONETIME ONE Stop: 02/26/18 09:14 Last Admin: 01/17/19 08:34 Dose: 50 mls/hr Iopamidol (Isovue Multipack-370 (76%)) 75 ml IVPUSH ONETIME STA Stop: 02/24/18 15:50 Last Admin: 02/24/18 15:50 Dose: 75 ml Nicotine (Habitrol) 14 mg TRDERM ONETIME ONE Stop: 02/24/18 11:26 Last Admin: 02/24/18 11:34 Dose: 14 mg Potassium Chloride (Klor-Con M20) 40 meq PO ONETIME ONE Stop: 02/24/18 14:57 Last Admin: 02/24/18 16:06 Dose: 40 meq Potassium Chloride (Klor-Con M20) 40 meq PO BID@1500,1700 [facility] Stop: 02/25/18 17:01 Last Admin: 02/25/18 17:00 Dose: 40 meq Potassium Chloride (Klor-Con M20) 20 meq PO ONETIME ONE Stop: 02/28/18 06:57 Last Admin: 02/28/18 08:11 Dose: 20 meq Sodium Phosphate (Neutra-Phos) 250 mg PO QID [facility] Last Admin: 02/26/18 17:55 Dose: Not Given Sodium Phosphate (Neutra-Phos) 250 mg PO QID [facility] Last Admin: 02/27/18 06:24 Dose: Not Given - Exam General: Alert, Oriented HEENT: Pupils Equal, Pupils Reactive, EOMI, Mucous Membr. Moist/[place] Neck: Supple Lungs: Clear to Auscultation, Normal Respiratory Effort Cardiovascular: Regular Rate, Regular Rhythm GI/Abdominal Exam: Normal Bowel Sounds, Soft, Non-Tender, No Organomegaly, No Distention, No Abnormal Bruit, No Mass, Pelvis Stable Extremities: Normal Inspection, Normal Range of Motion, Non-Tender, No Pedal Edema, Normal Capillary Refill Peripheral Pulses: 2+: Dorsalis Pedis (L), Dorsalis Pedis (R) Skin: Warm, Dry, Intact - Problem List Review Problem List Initiated/Reviewed/Updated: Yes - Plan Plan:: This 57 year old male admitted with R sided pleural effusion and hyponatremia 1. Pleural effusion: Cytology reveals no malignant cells, only blood and reactive mesothelial cells noted. Cultures negative for pleural fluid. Continue Levaquin. Consider parapneumonic pleural effusion, repeat CXR this morning to evaluate. 2. Positive BC: 1/4 bottles returned with gram positive cocci in pairs and clusters, Vancomycin continued. Still awaiting MIS. Consider contaminate. Will monitor. No fevers. 3. Hyponatremia: Improving. NS restarted due to dip of Na to 125 yesterday afternoon. Na 132 this morning. Checking every 12hrs. 4. Weakness: Continues to refuse PT and attempted to discuss with him getting to the chair for meals and starting to ambulate. He refuses, states he doesn't want to. 5. Alcohol abuse: No signs of withdrawal. Place on CIWAA protocol. Supplement with Folic acid and Thiamine daily. 6. Tobacco abuse: Nicotine patch, would like to quit and wants prescription for patch on discharge. 7. COPD: stable. but does have nebulizers. Continue Duoneb PRN. Psychiatric hold has been placed upon discharge for sisters to get him treatment in a psychiatric facility. VTE prophylaxis: Heparin Q12hr Dispo: 3-4 days pending improvement #8. Hypokalemia - replace orally, recheck and supplement as needed. <Sachin Walter - Last Filed: 02/28/18 09:14> - General Info Subjective Update: I have see and examined the patient independently of medical sales associate. I have discussed the case with the resident. I agree with the assessment and plan of care for this patient. Please see orders. Continues to have difficulty sleeping. Currently on a medical hold. Pending placement. The patient is not able to meet his ADL's at home by himself. - Patient Data Vitals - Most Recent: Last Vital Signs Temp 37.2 C 02/28/18 07:35 Pulse 88 02/28/18 07:35 Resp 17 02/28/18 07:35 BP 114/70 02/28/18 07:35 Pulse Ox 94 L 02/28/18 07:35 I&O - Last 24 Hours: Intake & Output 02/27/18 02/28/18 02/28/18 22:59 06:59 14:59 Intake Total 1384 2265 Output Total 650 675 Balance 734 1590 Lab Results Last 24 Hours: Laboratory Results - last 24 hr 02/28/18 02/28/18 Range/Units 05:51 05:51 WBC 5.38 (4.0-11.0) K/uL RBC 2.88 L (4.50-5.90) M/uL Hgb 9.1 L (13.0-17.0) g/dL Hct 28.2 L (38.0-50.0) % MCV 97.9 (80.0-98.0) fL MCH 31.6 (27.0-32.0) pg MCHC 32.3 (31.0-37.0) g/dL RDW Std Deviation 52.5 (28.0-62.0) fl RDW Coeff of Sage 15 (11.0-15.0) % Plt Count 144 L (150-400) K/uL MPV 10.30 (7.40-12.00) fL Neut % (Auto) 73.4 (48.0-80.0) % Lymph % (Auto) 18.0 (16.0-40.0) % Moca % (Auto) 6.9 (0.0-15.0) % Eos % (Auto) 1.5 (0.0-7.0) % Baso % (Auto) 0.2 (0.0-1.5) % Neut # (Auto) 4.0 (1.4-5.7) K/uL Lymph # (Auto) 1.0 (0.6-2.4) K/uL Moca # (Auto) 0.4 (0.0-0.8) K/uL Eos # (Auto) 0.1 (0.0-0.7) K/uL Baso # (Auto) 0.0 (0.0-0.1) K/uL Nucleated RBC % 0.0 /100WBC Nucleated RBCs # 0 K/uL Sodium 133 L (136-148) mmol/L Potassium 3.1 L (3.5-5.1) mmol/L Chloride 101 (98-107) mmol/L Carbon Dioxide 24.7 (21.0-32.0) mmol/L BUN 2 L (7.0-18.0) mg/dL Creatinine 0.7 L (0.8-1.3) mg/dL Est Cr Clr Drug Dosing 105.70 mL/min Estimated GFR (MDRD) > 60.0 ml/min Glucose 119 H (74-106) mg/dL Calcium 7.9 L (8.5-10.1) mg/dL Phosphorus 3.3 (2.6-4.7) mg/dL Magnesium 1.8 (1.8-2.4) mg/dL [place] Results Last 24 Hours: Microbiology 02/24/18 10:42 Aerobic Blood Culture - Preliminary Blood - Venous - Lab Draw NO GROWTH AFTER 3 DAYS Anaerobic Blood Culture - Preliminary NO GROWTH AFTER 3 DAYS 02/24/18 15:07 Gram Stain - Final Pleural Fluid Body Fluid Culture - Final NO GROWTH AFTER 3 DAYS 02/24/18 10:35 Aerobic Blood Culture - Final Blood - Venous Anaerobic Blood Culture - Preliminary NO GROWTH AFTER 3 DAYS 02/24/18 13:41 Gram Stain - Final Sputum - Expectorated Sputum Culture - Final Normal Respiratory Deidre Med Orders - Current: Current Medications Acetaminophen (Tylenol) 650 mg PO Q4H PRN PRN Reason: Pain (mild 1-3) Last Admin: 02/26/18 17:32 Dose: 650 mg Albuterol/Ipratropium (Duoneb 3.0-0.5 Mg/3 Ml) 3 ml NEB Q4HRRT [facility] Last Admin: 02/28/18 06:17 Dose: 3 ml Benzonatate (Tessalon Perles) 100 mg PO Q6H PRN PRN Reason: Cough Last Admin: 02/26/18 18:23 Dose: 100 mg Docusate Sodium (Colace) 100 mg PO BID PRN PRN Reason: Constipation Last Admin: 02/26/18 17:33 Dose: 100 mg Folic Acid (Folic Acid) 1 mg PO BEDTIME [facility] Last Admin: 02/27/18 21:10 Dose: 1 mg Heparin Sodium (Porcine) (Heparin Sodium) 5,000 units SUBCUT Q12H [facility] Last Admin: 02/27/18 22:39 Dose: 5,000 units Levofloxacin/Dextrose 750 mg/ (Premix) 150 mls @ 100 mls/hr IV Q24H [facility] Last Admin: 02/27/18 17:05 Dose: 100 mls/hr Sodium Chloride (Normal Saline) 1,000 mls @ 100 mls/hr IV ASDIRECTED [facility] Last Admin: 02/28/18 08:11 Dose: 100 mls/hr Lorazepam (Ativan) 0 mg IVPUSH Q4H PRN; Protocol PRN Reason: CIWAA Lorazepam (Ativan) 0.5 mg PO Q8H PRN PRN Reason: anxiety/agitation Mirtazapine (Remeron) 15 mg PO BEDTIME [facility] Last Admin: 02/27/18 21:10 Dose: 15 mg Morphine Sulfate (Morphine) 2 mg IVPUSH Q2H PRN PRN Reason: Pain (severe 7-10) Last Admin: 02/27/18 14:01 Dose: 2 mg Nicotine (Habitrol) 21 mg TRDERM DAILY [facility] Last Admin: 02/27/18 08:53 Dose: 21 mg Ondansetron HCl (Zofran) 4 mg IVPUSH Q4H PRN PRN Reason: Nausea Oxycodone HCl (Oxycodone) 5 mg PO Q4H PRN PRN Reason: Pain Last Admin: 02/28/18 03:47 Dose: 5 mg Pantoprazole Sodium (Protonix Iv) 40 mg IVPUSH Q24H [facility] Last Admin: 02/27/18 15:36 Dose: 40 mg Fluticasone/Salmeterol (Advair Diskus 250-50) 1 puff INH BID [facility] Last Admin: 02/27/18 21:09 Dose: 1 puff Sodium Chloride (Saline Flush) 10 ml FLUSH ASDIRECTED PRN PRN Reason: Keep Vein Open Sodium Chloride (Saline Flush) 2.5 ml FLUSH ASDIRECTED PRN PRN Reason: Keep Vein Open Temazepam (Restoril) 15 mg PO BEDTIME PRN PRN Reason: Sleep Thiamine HCl (Vitamin B-1) 100 mg PO BEDTIME [facility] Last Admin: 02/27/18 21:10 Dose: 100 mg Vancomycin HCl (Pharmacy To Dose - Vancomycin) 1 dose .XX ASDIRECTED [facility] Discontinued Medications Albuterol/Ipratropium (Duoneb 3.0-0.5 Mg/3 Ml) 3 ml NEB Q4HRRT PRN PRN Reason: Shortness Of Breath/wheezing Multivitamins/Minerals 10 ml/Thiamine HCl 100 mg/ Folic Acid 1 mg/ Sodium Chloride 1,011.2 mls @ 999 mls/hr IV ONETIME ONE Stop: 02/24/18 11:24 Last Admin: 02/24/18 11:06 Dose: 999 mls/hr Magnesium Sulfate 2 gm/ Premix 50 mls @ 25 mls/hr IV ONETIME ONE Stop: 02/24/18 12:39 Last Admin: 02/24/18 11:06 Dose: 25 mls/hr Sodium Chloride (Normal Saline) 1,000 mls @ 100 mls/hr IV ASDIRECTED [facility] Last Admin: 02/24/18 16:04 Dose: 100 mls/hr Vancomycin HCl 1 gm/ Sodium (Chloride) 250 mls @ 166 mls/hr IV Q12H [facility] Last Admin: 02/25/18 02:33 Dose: 166 mls/hr Vancomycin HCl 1 gm/ Sodium (Chloride) 250 mls @ 166 mls/hr IV Q8H [facility] Last Admin: 02/27/18 02:13 Dose: 166 mls/hr Potassium Chloride/Sodium Chloride (Normal Saline With 40 Meq Kcl) 1,000 mls @ 100 mls/hr IV ASDIRECTED [facility] Stop: 02/26/18 00:59 Last Admin: 02/25/18 15:09 Dose: 100 mls/hr Magnesium Sulfate 2 gm/ Premix 50 mls @ 50 mls/hr IV ONETIME ONE Stop: 02/26/18 09:14 Last Admin: 02/26/18 08:34 Dose: 50 mls/hr Iopamidol (Isovue Multipack-370 (76%)) 75 ml IVPUSH ONETIME STA Stop: 02/24/18 15:50 Last Admin: 02/24/18 15:50 Dose: 75 ml Nicotine (Habitrol) 14 mg TRDERM ONETIME ONE Stop: 02/24/18 11:26 Last Admin: 02/24/18 11:34 Dose: 14 mg Potassium Chloride (Klor-Con M20) 40 meq PO ONETIME ONE Stop: 02/24/18 14:57 Last Admin: 02/24/18 16:06 Dose: 40 meq Potassium Chloride (Klor-Con M20) 40 meq PO BID@1500,1700 [facility] Stop: 02/25/18 17:01 Last Admin: 02/25/18 17:00 Dose: 40 meq Potassium Chloride (Klor-Con M20) 20 meq PO ONETIME ONE Stop: 02/28/18 06:57 Last Admin: 02/28/18 08:11 Dose: 20 meq Sodium Phosphate (Neutra-Phos) 250 mg PO QID [facility] Last Admin: 02/26/18 17:55 Dose: Not Given Sodium Phosphate (Neutra-Phos) 250 mg PO QID [facility] Last Admin: 02/27/18 06:24 Dose: Not Given - My Orders Last 24 Hours: My Active Orders 02/27/18 13:10 Temazepam [Restoril] 15 mg PO BEDTIME PRN
[2018-02-28] MEDS: Nicotine 21 MG/24 Hr Patch TRDERM SCH (09:15)
[2018-02-28] MEDS: Fluticasone/Salmeterol 250-50 MCG Inhalation Powder 14/Diskus INH SCH ×2 (09:52→20:59)
[2018-02-28] MEDS: Heparin Sodium 5,000 Units/ML Vial SUBCUT SCH ×2 (11:05→23:51)
[2018-02-28] MEDS: Pantoprazole 40 MG Vial IVPUSH SCH (14:59)
[2018-02-28] MEDS: Levofloxacin/Dextrose 5%-Water 750 MG in Premix Bag 1 BAG IV SCH (16:28)
[2018-02-28] MEDS: Mirtazapine 15 MG Tab PO SCH (20:32)
[2018-02-28] MEDS: Folic Acid 1 MG Tab PO SCH (20:32)
[2018-02-28] MEDS: Thiamine 100 MG Tab PO SCH (20:32)
[2018-03-01] MEDS: Albuterol/Ipratropium 3.0-0.5 MG/3 ML Neb Soln NEB SCH ×6 (02:20→21:47)
[2018-03-01] MEDS: oxyCODONE 5 MG Tab PO PRN ×5 (02:50→21:46)
[2018-03-01] MEDS: Sodium Chloride 0.9% 1,000 ML IV SCH (06:19)
[2018-03-01 07:10] LABS: CHLORIDE,CL 102 mmol/L (98-107); SODIUM,NA 132 mmol/L (136-148)
--- NOTE | 2018-03-01 07:29 | PCM.PN ---
- General Info Date of Service: 03/01/18 Subjective Update: The patient is a 57-year-old gentleman was admitted to acute hospitalization out of concern for hyponatremia, weakness and been unable to take care of himself. The patient at various times has been refusing physical therapy and has remained either in bed or in chair. The patient today says that he is okay. He is somewhat better. He has been lying in bed. Functional Status: Reports: Pain Controlled - Review of Systems General: Reports: Weakness, Fatigue HEENT: Reports: No Symptoms Pulmonary: Reports: Shortness of Breath Cardiovascular: Reports: No Symptoms Gastrointestinal: Reports: No Symptoms Genitourinary: Reports: No Symptoms Musculoskeletal: Reports: No Symptoms Skin: Reports: No Symptoms Neurological: Reports: No Symptoms Psychiatric: Reports: No Symptoms - Patient Data Vitals - Most Recent: Last Vital Signs Temp 36.7 C 03/01/18 04:47 Pulse 88 03/01/18 04:47 Resp 18 03/01/18 04:47 BP 101/66 03/01/18 04:47 Pulse Ox 93 L 03/01/18 05:00 Weight - Most Recent: 71.985 kg I&O - Last 24 Hours: Intake & Output 02/28/18 03/01/18 03/01/18 22:59 06:59 14:59 Intake Total 2386 500 Output Total 450 620 Balance 1936 -120 Lab Results Last 24 Hours: Laboratory Results - last 24 hr 03/01/18 03/01/18 Range/Units 06:25 06:25 WBC 6.09 (4.0-11.0) K/uL RBC 2.64 L (4.50-5.90) M/uL Hgb 8.4 L (13.0-17.0) g/dL Hct 25.7 L (38.0-50.0) % MCV 97.3 (80.0-98.0) fL MCH 31.8 (27.0-32.0) pg MCHC 32.7 (31.0-37.0) g/dL RDW Std Deviation 53.1 (28.0-62.0) fl RDW Coeff of Sage 15 (11.0-15.0) % Plt Count 120 L (150-400) K/uL MPV 10.20 (7.40-12.00) fL Neut % (Auto) 73.5 (48.0-80.0) % Lymph % (Auto) 19.0 (16.0-40.0) % [place] % (Auto) 6.6 (0.0-15.0) % Eos % (Auto) 0.7 (0.0-7.0) % Baso % (Auto) 0.2 (0.0-1.5) % Neut # (Auto) 4.5 (1.4-5.7) K/uL Lymph # (Auto) 1.2 (0.6-2.4) K/uL [place] # (Auto) 0.4 (0.0-0.8) K/uL Eos # (Auto) 0.0 (0.0-0.7) K/uL Baso # (Auto) 0.0 (0.0-0.1) K/uL Nucleated RBC % 0.0 /100WBC Nucleated RBCs # 0 K/uL Sodium 132 L (136-148) mmol/L Potassium 3.2 L (3.5-5.1) mmol/L Chloride 102 (98-107) mmol/L Carbon Dioxide 21.9 (21.0-32.0) mmol/L BUN 4 L (7.0-18.0) mg/dL Creatinine 0.5 L (0.8-1.3) mg/dL Est Cr Clr Drug Dosing 148.73 mL/min Estimated GFR (MDRD) > 60.0 ml/min Glucose 103 (74-106) mg/dL Calcium 7.7 L (8.5-10.1) mg/dL [place] Results Last 24 Hours: Microbiology 02/24/18 10:42 Aerobic Blood Culture - Preliminary Blood - Venous - Lab Draw NO GROWTH AFTER 4 DAYS Anaerobic Blood Culture - Preliminary NO GROWTH AFTER 4 DAYS 02/24/18 10:35 Aerobic Blood Culture - Final Blood - Venous Anaerobic Blood Culture - Preliminary NO GROWTH AFTER 4 DAYS Med Orders - Current: Current Medications Acetaminophen (Tylenol) 650 mg PO Q4H PRN PRN Reason: Pain (mild 1-3) Last Admin: 02/26/18 17:32 Dose: 650 mg Albuterol/Ipratropium (Duoneb 3.0-0.5 Mg/3 Ml) 3 ml NEB Q4HRRT [facility] Last Admin: 03/01/18 06:01 Dose: 3 ml Benzonatate (Tessalon Perles) 100 mg PO Q6H PRN PRN Reason: Cough Last Admin: 02/26/18 18:23 Dose: 100 mg Docusate Sodium (Colace) 100 mg PO BID PRN PRN Reason: Constipation Last Admin: 02/26/18 17:33 Dose: 100 mg Folic Acid (Folic Acid) 1 mg PO BEDTIME [facility] Last Admin: 02/28/18 20:32 Dose: 1 mg Heparin Sodium (Porcine) (Heparin Sodium) 5,000 units SUBCUT Q12H [facility] Last Admin: 02/28/18 23:51 Dose: 5,000 units Levofloxacin/Dextrose 750 mg/ (Premix) 150 mls @ 100 mls/hr IV Q24H [facility] Last Admin: 02/28/18 16:28 Dose: 100 mls/hr Sodium Chloride (Normal Saline) 1,000 mls @ 100 mls/hr IV ASDIRECTED [facility] Last Admin: 03/01/18 06:19 Dose: 100 mls/hr Lorazepam (Ativan) 0 mg IVPUSH Q4H PRN; Protocol PRN Reason: CIWAA Lorazepam (Ativan) 0.5 mg PO Q8H PRN PRN Reason: anxiety/agitation Mirtazapine (Remeron) 15 mg PO BEDTIME [facility] Last Admin: 02/28/18 20:32 Dose: 15 mg Morphine Sulfate (Morphine) 2 mg IVPUSH Q2H PRN PRN Reason: Pain (severe 7-10) Last Admin: 02/27/18 14:01 Dose: 2 mg Nicotine (Habitrol) 21 mg TRDERM DAILY [facility] Last Admin: 02/28/18 09:15 Dose: 21 mg Ondansetron HCl (Zofran) 4 mg IVPUSH Q4H PRN PRN Reason: Nausea Oxycodone HCl (Oxycodone) 5 mg PO Q4H PRN PRN Reason: Pain Last Admin: 03/01/18 02:50 Dose: 5 mg Pantoprazole Sodium (Protonix Iv) 40 mg IVPUSH Q24H [facility] Last Admin: 02/28/18 14:59 Dose: 40 mg Fluticasone/Salmeterol (Advair Diskus 250-50) 1 puff INH BID [facility] Last Admin: 02/28/18 20:59 Dose: 1 puff Sodium Chloride (Saline Flush) 10 ml FLUSH ASDIRECTED PRN PRN Reason: Keep Vein Open Sodium Chloride (Saline Flush) 2.5 ml FLUSH ASDIRECTED PRN PRN Reason: Keep Vein Open Temazepam (Restoril) 15 mg PO BEDTIME PRN PRN Reason: Sleep Thiamine HCl (Vitamin B-1) 100 mg PO BEDTIME [facility] Last Admin: 02/28/18 20:32 Dose: 100 mg Vancomycin HCl (Pharmacy To Dose - Vancomycin) 1 dose .XX ASDIRECTED [facility] Discontinued Medications Albuterol/Ipratropium (Duoneb 3.0-0.5 Mg/3 Ml) 3 ml NEB Q4HRRT PRN PRN Reason: Shortness Of Breath/wheezing Multivitamins/Minerals 10 ml/Thiamine HCl 100 mg/ Folic Acid 1 mg/ Sodium Chloride 1,011.2 mls @ 999 mls/hr IV ONETIME ONE Stop: 02/24/18 11:24 Last Admin: 02/24/18 11:06 Dose: 999 mls/hr Magnesium Sulfate 2 gm/ Premix 50 mls @ 25 mls/hr IV ONETIME ONE Stop: 02/24/18 12:39 Last Admin: 02/24/18 11:06 Dose: 25 mls/hr Sodium Chloride (Normal Saline) 1,000 mls @ 100 mls/hr IV ASDIRECTED [facility] Last Admin: 02/24/18 16:04 Dose: 100 mls/hr Vancomycin HCl 1 gm/ Sodium (Chloride) 250 mls @ 166 mls/hr IV Q12H [facility] Last Admin: 02/25/18 02:33 Dose: 166 mls/hr Vancomycin HCl 1 gm/ Sodium (Chloride) 250 mls @ 166 mls/hr IV Q8H [facility] Last Admin: 02/27/18 02:13 Dose: 166 mls/hr Potassium Chloride/Sodium Chloride (Normal Saline With 40 Meq Kcl) 1,000 mls @ 100 mls/hr IV ASDIRECTED [facility] Stop: 02/26/18 00:59 Last Admin: 02/25/18 15:09 Dose: 100 mls/hr Magnesium Sulfate 2 gm/ Premix 50 mls @ 50 mls/hr IV ONETIME ONE Stop: 02/26/18 09:14 Last Admin: 02/26/18 08:34 Dose: 50 mls/hr Iopamidol (Isovue Multipack-370 (76%)) 75 ml IVPUSH ONETIME STA Stop: 02/24/18 15:50 Last Admin: 02/24/18 15:50 Dose: 75 ml Nicotine (Habitrol) 14 mg TRDERM ONETIME ONE Stop: 02/24/18 11:26 Last Admin: 02/24/18 11:34 Dose: 14 mg Potassium Chloride (Klor-Con M20) 40 meq PO ONETIME ONE Stop: 02/24/18 14:57 Last Admin: 02/24/18 16:06 Dose: 40 meq Potassium Chloride (Klor-Con M20) 40 meq PO BID@1500,1700 [facility] Stop: 02/25/18 17:01 Last Admin: 02/25/18 17:00 Dose: 40 meq Potassium Chloride (Klor-Con M20) 20 meq PO ONETIME ONE Stop: 02/28/18 06:57 Last Admin: 02/28/18 08:11 Dose: 20 meq Sodium Phosphate (Neutra-Phos) 250 mg PO QID [facility] Last Admin: 02/26/18 17:55 Dose: Not Given Sodium Phosphate (Neutra-Phos) 250 mg PO QID [facility] Last Admin: 02/27/18 06:24 Dose: Not Given - Exam Quality Assessment: No: Supplemental Oxygen General: Alert, Oriented, Cooperative HEENT: Pupils Equal, Pupils Reactive Neck: Supple, Trachea Midline Lungs: Normal Respiratory Effort, Crackles, Rales Cardiovascular: Regular Rate, Regular Rhythm GI/Abdominal Exam: Normal Bowel Sounds, Soft, Non-Tender, Distended (Male) Exam: Deferred Back Exam: Normal Inspection Extremities: Normal Inspection, No Pedal Edema Skin: Warm, Dry, Intact Neurological: No New Focal Deficit Psy/Mental Status: Alert, Normal Affect - Problem List & Annotations (1) Dehydration SNOMED Code(s): 89367936 Code(s): E86.0 - DEHYDRATION Status: Acute Priority: High Current Visit : Yes (2) Dyspnea SNOMED Code(s): 123513824 Code(s): R06.00 - DYSPNEA, UNSPECIFIED Status: Acute Priority: High Current Visit: Yes Qualifiers: Dyspnea type: dyspnea on exertion Qualified Code(s): R06.09 - Other forms of dyspnea (3) Failure to thrive in adult SNOMED Code(s): 091475432 Code(s): R62.7 - ADULT FAILURE TO THRIVE Status: Chronic Priority: High Current Visit: Yes (4) Generalized weakness SNOMED Code(s): 50664683 Code(s): R53.1 - WEAKNESS Status: Chronic Priority: High Current Visit : Yes (5) Hyponatremia SNOMED Code(s): 71101894 Code(s): E87.1 - HYPO-OSMOLALITY AND HYPONATREMIA Status: Acute Priority : High Current Visit: Yes (6) Alcohol abuse SNOMED Code(s): 98452875 Code(s): F10.10 - ALCOHOL ABUSE, UNCOMPLICATED Status: Chronic Priority: High Current Visit: Yes - Problem List Review Problem List Initiated/Reviewed/Updated: Yes - Plan Plan:: This 57 year old male admitted with R sided pleural effusion and hyponatremia 1. Pleural effusion: Cytology reveals no malignant cells, only blood and reactive mesothelial cells noted. Cultures negative for pleural fluid. Continue Levaquin. Consider parapneumonic pleural effusion, repeat CXR this morning to evaluate. 2. Positive BC: / bottles returned with gram positive cocci in pairs and clusters, Vancomycin continued. Still awaiting MIS. Consider contaminate. Will monitor. No fevers. 3. Hyponatremia: Improving. NS restarted due to dip of Na to 125 yesterday afternoon. Na 132 this morning. Checking every 12hrs. 4. Weakness: Continues to refuse PT and attempted to discuss with him getting to the chair for meals and starting to ambulate. He refuses, states he doesn't want to. 5. Alcohol abuse: No signs of withdrawal. Place on CIWAA protocol. Supplement with Folic acid and Thiamine daily. 6. Tobacco abuse: Nicotine patch, would like to quit and wants prescription for patch on discharge. 7. COPD: stable. but does have nebulizers. Continue Duoneb PRN. Psychiatric hold has been placed upon discharge for sisters to get him treatment in a psychiatric facility. VTE prophylaxis: Heparin Q12hr Dispo: 3-4 days pending improvement #8. Hypokalemia - replace orally, recheck and supplement as needed. The patient is a 57-year-old gentleman who was admitted out of concern for hyponatremia and right-sided pleural effusion. The patient has improved since admission. Currently the patient's sodium is 132 and has remained stable over the past several days. This is likely the patient's new normal given his history of chronic alcohol abuse. The patient is likely going to need to have placement and to compound picture the patient's sisters have been working with outside placement facilities for now. He has been placed on a medical hold and the Police Department has required notification upon the patient's discharge. The patient's sisters plan to do this. I have ordered repeat laboratory studies in the morning. He also has hypokalemia which has been replaced. The patient has been encouraged to ambulate however he has refused physical therapy and thus still continues to be weak and fatigued. The patient also has a diagnosis as adult failure to thrive and is a result of this is being considered for placement. The patient's dehydration has been essentially resolved and I have also ordered a chest x-ray for the morning to review the patient's pleural effusion. Placement pending.
[2018-03-01] MEDS: Nicotine 21 MG/24 Hr Patch TRDERM SCH (08:52)
[2018-03-01] MEDS: Fluticasone/Salmeterol 250-50 MCG Inhalation Powder 14/Diskus INH SCH ×2 (09:52→20:44)
[2018-03-01] MEDS: Heparin Sodium 5,000 Units/ML Vial SUBCUT SCH ×2 (11:54→21:47)
[2018-03-01] MEDS ORDERED: Simethicone 80 MG Tab.Chew PO ONE (12:36)
[2018-03-01] MEDS: Pantoprazole 40 MG Vial IVPUSH SCH (15:58)
[2018-03-01] MEDS: Levofloxacin/Dextrose 5%-Water 750 MG in Premix Bag 1 BAG IV SCH (16:11)
[2018-03-01] MEDS: Benzonatate 100 MG Cap PO PRN ×2 (16:30→21:46)
[2018-03-01] MEDS: Mirtazapine 15 MG Tab PO SCH (21:47)
[2018-03-01] MEDS: Folic Acid 1 MG Tab PO SCH (21:47)
[2018-03-01] MEDS: Thiamine 100 MG Tab PO SCH (21:47)
[2018-03-02] MEDS: Albuterol/Ipratropium 3.0-0.5 MG/3 ML Neb Soln NEB SCH ×3 (02:40→09:43)
[2018-03-02] MEDS: oxyCODONE 5 MG Tab PO PRN ×2 (05:01→09:10)
[2018-03-02 06:33] LABS: CHLORIDE,CL 101 mmol/L (98-107); SODIUM,NA 134 mmol/L (136-148)
[2018-03-02] MEDS ORDERED: Magnesium Sulfate/Water 2 GM in Premix Bag 1 BAG IV ONE (08:15)
[2018-03-02] MEDS: Fluticasone/Salmeterol 250-50 MCG Inhalation Powder 14/Diskus INH SCH (08:43)
--- NOTE | 2018-03-02 08:55 | CR ---
EXAMINATION: Portable chest radiograph. HISTORY: Pleural effusion. COMPARISON: 02/27/2018. FINDINGS: The trachea is midline. The cardiomediastinal silhouette is stable. There is a moderate right pleural effusion essentially unchanged. Mildly increasing perihilar interstitial prominence bilaterally. Osseous structures appear unremarkable. IMPRESSION: 1. Moderate right pleural effusion, essentially unchanged.
[2018-03-02] MEDS: Potassium Chloride 20 MEQ Tab.ER PO SCH ×2 (09:10→13:45)
[2018-03-02] MEDS: Nicotine 21 MG/24 Hr Patch TRDERM SCH (09:11)
--- NOTE | 2018-03-02 10:11 | PCM.PN ---
- General Info Date of Service: 03/02/18 Admission Dx/Problem (Free Text): I have examined the patient independently of Aliyah Lowe CNP. I have discussed the case with her. I agree with the assessment and plan of care for this patient as outlined by her. Please see orders. Placement can be a consideration. Consider the patient to be unable to meet ADL's. - Patient Data Vitals - Most Recent: Last Vital Signs Temp 99.5 F 03/02/18 04:00 Pulse 99 03/02/18 04:00 Resp 18 03/02/18 04:00 BP 109/70 03/02/18 04:00 Pulse Ox 93 L 03/02/18 04:55 Weight - Most Recent: 72.484 kg I&O - Last 24 Hours: Intake & Output 03/01/18 03/02/18 03/02/18 22:59 06:59 14:59 Intake Total 1000 600 Output Total 800 500 Balance 200 100 Lab Results Last 24 Hours: Laboratory Results - last 24 hr 03/02/18 03/02/18 Range/Units 06:00 06:00 WBC 5.86 (4.0-11.0) K/uL RBC 2.66 L (4.50-5.90) M/uL Hgb 8.6 L (13.0-17.0) g/dL Hct 25.9 L (38.0-50.0) % MCV 97.4 (80.0-98.0) fL MCH 32.3 H (27.0-32.0) pg MCHC 33.2 (31.0-37.0) g/dL RDW Std Deviation 52.8 (28.0-62.0) fl RDW Coeff of Sage 15 (11.0-15.0) % Plt Count 127 L (150-400) K/uL MPV 10.10 (7.40-12.00) fL Neut % (Auto) 78.8 (48.0-80.0) % Lymph % (Auto) 15.0 L (16.0-40.0) % [place] % (Auto) 5.5 (0.0-15.0) % Eos % (Auto) 0.5 (0.0-7.0) % Baso % (Auto) 0.2 (0.0-1.5) % Neut # (Auto) 4.6 (1.4-5.7) K/uL Lymph # (Auto) 0.9 (0.6-2.4) K/uL [place] # (Auto) 0.3 (0.0-0.8) K/uL Eos # (Auto) 0.0 (0.0-0.7) K/uL Baso # (Auto) 0.0 (0.0-0.1) K/uL Nucleated RBC % 0.0 /100WBC Nucleated RBCs # 0 K/uL Sodium 134 L (136-148) mmol/L Potassium 2.8 L (3.5-5.1) mmol/L Chloride 101 (98-107) mmol/L Carbon Dioxide 26.7 (21.0-32.0) mmol/L BUN 3 L (7.0-18.0) mg/dL Creatinine 0.7 L (0.8-1.3) mg/dL Est Cr Clr Drug Dosing 106.23 mL/min Estimated GFR (MDRD) > 60.0 ml/min Glucose 164 H (74-106) mg/dL Calcium 8.0 L (8.5-10.1) mg/dL Magnesium 1.8 (1.8-2.4) mg/dL Total Bilirubin 0.4 (0.2-1.0) mg/dL AST 33 (15-37) IU/L ALT 31 (14-63) IU/L Alkaline Phosphatase 64 (46-116) U/L Total Protein 4.9 L (6.4-8.2) g/dL Albumin 1.6 L (3.4-5.0) g/dL Globulin 3.3 (2.6-4.0) g/dL Albumin/Globulin Ratio 0.5 L (0.9-1.6) [place] Results Last 24 Hours: Microbiology 02/24/18 10:42 Aerobic Blood Culture - Final Blood - Venous - Lab Draw NO GROWTH AFTER 5 DAYS Anaerobic Blood Culture - Final NO GROWTH AFTER 5 DAYS 02/24/18 10:35 Aerobic Blood Culture - Final Blood - Venous Anaerobic Blood Culture - Final NO GROWTH AFTER 5 DAYS Med Orders - Current: Current Medications Acetaminophen (Tylenol) 650 mg PO Q4H PRN PRN Reason: Pain (mild 1-3) Last Admin: 02/26/18 17:32 Dose: 650 mg Albuterol/Ipratropium (Duoneb 3.0-0.5 Mg/3 Ml) 3 ml NEB Q4HRRT [facility] Last Admin: 03/02/18 09:43 Dose: 3 ml Benzonatate (Tessalon Perles) 100 mg PO Q6H PRN PRN Reason: Cough Last Admin: 03/01/18 21:46 Dose: 100 mg Docusate Sodium (Colace) 100 mg PO BID PRN PRN Reason: Constipation Last Admin: 02/26/18 17:33 Dose: 100 mg Folic Acid (Folic Acid) 1 mg PO BEDTIME [facility] Last Admin: 03/01/18 21:47 Dose: 1 mg Heparin Sodium (Porcine) (Heparin Sodium) 5,000 units SUBCUT Q12H [facility] Last Admin: 03/01/18 21:47 Dose: 5,000 units Levofloxacin/Dextrose 750 mg/ (Premix) 150 mls @ 100 mls/hr IV Q24H [facility] Last Admin: 03/01/18 16:11 Dose: 100 mls/hr Lorazepam (Ativan) 0 mg IVPUSH Q4H PRN; Protocol PRN Reason: CIWAA Lorazepam (Ativan) 0.5 mg PO Q8H PRN PRN Reason: anxiety/agitation Mirtazapine (Remeron) 15 mg PO BEDTIME [facility] Last Admin: 03/01/18 21:47 Dose: 15 mg Morphine Sulfate (Morphine) 2 mg IVPUSH Q2H PRN PRN Reason: Pain (severe 7-10) Last Admin: 02/27/18 14:01 Dose: 2 mg Nicotine (Habitrol) 21 mg TRDERM DAILY [facility] Last Admin: 03/02/18 09:11 Dose: 21 mg Ondansetron HCl (Zofran) 4 mg IVPUSH Q4H PRN PRN Reason: Nausea Oxycodone HCl (Oxycodone) 5 mg PO Q4H PRN PRN Reason: Pain Last Admin: 03/02/18 09:10 Dose: 5 mg Pantoprazole Sodium (Protonix Iv) 40 mg IVPUSH Q24H [facility] Last Admin: 03/01/18 15:58 Dose: 40 mg Potassium Chloride (Klor-Con M20) 40 meq PO TID@0830,1200,1700 [facility] Stop: 03/02/18 17:01 Last Admin: 03/02/18 09:10 Dose: 40 meq Fluticasone/Salmeterol (Advair Diskus 250-50) 1 puff INH BID [facility] Last Admin: 03/02/18 08:43 Dose: 1 puff Sodium Chloride (Saline Flush) 10 ml FLUSH ASDIRECTED PRN PRN Reason: Keep Vein Open Sodium Chloride (Saline Flush) 2.5 ml FLUSH ASDIRECTED PRN PRN Reason: Keep Vein Open Temazepam (Restoril) 15 mg PO BEDTIME PRN PRN Reason: Sleep Last Admin: 03/01/18 21:46 Dose: 15 mg Thiamine HCl (Vitamin B-1) 100 mg PO BEDTIME [facility] Last Admin: 03/01/18 21:47 Dose: 100 mg Discontinued Medications Albuterol/Ipratropium (Duoneb 3.0-0.5 Mg/3 Ml) 3 ml NEB Q4HRRT PRN PRN Reason: Shortness Of Breath/wheezing Multivitamins/Minerals 10 ml/Thiamine HCl 100 mg/ Folic Acid 1 mg/ Sodium Chloride 1,011.2 mls @ 999 mls/hr IV ONETIME ONE Stop: 02/24/18 11:24 Last Admin: 02/24/18 11:06 Dose: 999 mls/hr Magnesium Sulfate 2 gm/ Premix 50 mls @ 25 mls/hr IV ONETIME ONE Stop: 02/24/18 12:39 Last Admin: 02/24/18 11:06 Dose: 25 mls/hr Sodium Chloride (Normal Saline) 1,000 mls @ 100 mls/hr IV ASDIRECTED [facility] Last Admin: 02/24/18 16:04 Dose: 100 mls/hr Vancomycin HCl 1 gm/ Sodium (Chloride) 250 mls @ 166 mls/hr IV Q12H [facility] Last Admin: 02/25/18 02:33 Dose: 166 mls/hr Vancomycin HCl 1 gm/ Sodium (Chloride) 250 mls @ 166 mls/hr IV Q8H [facility] Last Admin: 02/27/18 02:13 Dose: 166 mls/hr Potassium Chloride/Sodium Chloride (Normal Saline With 40 Meq Kcl) 1,000 mls @ 100 mls/hr IV ASDIRECTED [facility] Stop: 02/26/18 00:59 Last Admin: 02/25/18 15:09 Dose: 100 mls/hr Magnesium Sulfate 2 gm/ Premix 50 mls @ 50 mls/hr IV ONETIME ONE Stop: 02/26/18 09:14 Last Admin: 02/26/18 08:34 Dose: 50 mls/hr Sodium Chloride (Normal Saline) 1,000 mls @ 100 mls/hr IV ASDIRECTED [facility] Last Admin: 03/01/18 06:19 Dose: 100 mls/hr Magnesium Sulfate 2 gm/ Premix 50 mls @ 50 mls/hr IV ONETIME ONE Stop: 03/02/18 09:14 Last Admin: 03/02/18 09:11 Dose: 50 mls/hr Iopamidol (Isovue Multipack-370 (76%)) 75 ml IVPUSH ONETIME STA Stop: 02/24/18 15:50 Last Admin: 02/24/18 15:50 Dose: 75 ml Nicotine (Habitrol) 14 mg TRDERM ONETIME ONE Stop: 02/24/18 11:26 Last Admin: 02/24/18 11:34 Dose: 14 mg Potassium Chloride (Klor-Con M20) 40 meq PO ONETIME ONE Stop: 02/24/18 14:57 Last Admin: 02/24/18 16:06 Dose: 40 meq Potassium Chloride (Klor-Con M20) 40 meq PO BID@1500,1700 [facility] Stop: 02/25/18 17:01 Last Admin: 02/25/18 17:00 Dose: 40 meq Potassium Chloride (Klor-Con M20) 20 meq PO ONETIME ONE Stop: 02/28/18 06:57 Last Admin: 02/28/18 08:11 Dose: 20 meq Simethicone (Simethicone) 80 mg PO ONETIME ONE Stop: 03/01/18 12:37 Last Admin: 03/01/18 13:07 Dose: 80 mg Sodium Phosphate (Neutra-Phos) 250 mg PO QID [facility] Last Admin: 02/26/18 17:55 Dose: Not Given Sodium Phosphate (Neutra-Phos) 250 mg PO QID [facility] Last Admin: 02/27/18 06:24 Dose: Not Given Vancomycin HCl (Pharmacy To Dose - Vancomycin) 1 dose .XX ASDIRECTED [facility] - Problem List & Annotations (1) Hyponatremia SNOMED Code(s): 43602438 Code(s): E87.1 - HYPO-OSMOLALITY AND HYPONATREMIA Status: Acute Priority : High Current Visit: Yes (2) Pleural effusion SNOMED Code(s): 50942933 Code(s): J90 - PLEURAL EFFUSION, NOT ELSEWHERE CLASSIFIED Status: Acute Current Visit: Yes (3) Dyspnea SNOMED Code(s): 437107526 Code(s): R06.00 - DYSPNEA, UNSPECIFIED Status: Acute Priority: High Current Visit: Yes Qualifiers: Dyspnea type: dyspnea on exertion Qualified Code(s): R06.09 - Other forms of dyspnea (4) Total self-care deficit SNOMED Code(s): 00079963 Code(s): R41.89 - OTH SYMPTOMS AND SIGNS W COGNITIVE FUNCTIONS AND AWARENESS Status: Acute Current Visit: Yes (5) Generalized weakness SNOMED Code(s): 22703184 Code(s): R53.1 - WEAKNESS Status: Chronic Priority: High Current Visit : Yes (6) Protein malnutrition SNOMED Code(s): 202727470 Code(s): E46 - UNSPECIFIED PROTEIN-CALORIE MALNUTRITION Status: Acute Current Visit: Yes (7) Failure to thrive in adult SNOMED Code(s): 994727974 Code(s): R62.7 - ADULT FAILURE TO THRIVE Status: Chronic Priority: High Current Visit: Yes (8) Alcohol abuse SNOMED Code(s): 52141010 Code(s): F10.10 - ALCOHOL ABUSE, UNCOMPLICATED Status: Chronic Priority: High Current Visit: Yes (9) Hx of deep venous thrombosis SNOMED Code(s): 922536037 Code(s): Z86.718 - PERSONAL HISTORY OF OTHER VENOUS THROMBOSIS AND EMBOLISM Status: Chronic Current Visit: Yes (10) COPD (chronic obstructive pulmonary disease) SNOMED Code(s): 71897487 Code(s): J44.9 - CHRONIC OBSTRUCTIVE PULMONARY DISEASE, UNSPECIFIED Status : Chronic Current Visit: Yes (11) Tobacco abuse SNOMED Code(s): 100552076 Code(s): Z72.0 - TOBACCO USE Status: Chronic Current Visit: Yes - My Orders Last 24 Hours: My Active Orders 03/02/18 08:30 Potassium Chloride [Klor-Con M20] 40 meq PO TID@0830,1200,1700 - Plan Plan:: This 57 year old male admitted with R sided pleural effusion and hyponatremia 1. Pleural effusion: Cytology reveals no malignant cells, only blood and reactive mesothelial cells noted. Cultures negative for pleural fluid. Continue Levaquin. Consider parapneumonic pleural effusion, repeat CXR this morning to evaluate. 2. Positive BC: 02/13 bottles returned with gram positive cocci in pairs and clusters, Vancomycin continued. Still awaiting MIS. Consider contaminate. Will monitor. No fevers. 3. Hyponatremia: Improving. NS restarted due to dip of Na to 125 yesterday afternoon. Na 132 this morning. Checking every 12hrs. 4. Weakness: Continues to refuse PT and attempted to discuss with him getting to the chair for meals and starting to ambulate. He refuses, states he doesn't want to. 5. Alcohol abuse: No signs of withdrawal. Place on CIWAA protocol. Supplement with Folic acid and Thiamine daily. 6. Tobacco abuse: Nicotine patch, would like to quit and wants prescription for patch on discharge. 7. COPD: stable. but does have nebulizers. Continue Duoneb PRN. Psychiatric hold has been placed upon discharge for sisters to get him treatment in a psychiatric facility. VTE prophylaxis: Heparin Q12hr Dispo: 3-4 days pending improvement #8. Hypokalemia - replace orally, recheck and supplement as needed. The patient is a 57-year-old gentleman who was admitted out of concern for hyponatremia and right-sided pleural effusion. The patient has improved since admission. Currently the patient's sodium is 132 and has remained stable over the past several days. This is likely the patient's new normal given his history of chronic alcohol abuse. The patient is likely going to need to have placement and to compound picture the patient's sisters have been working with outside placement facilities for now. He has been placed on a medical hold and the Police Department has required notification upon the patient's discharge. The patient's sisters plan to do this. I have ordered repeat laboratory studies in the morning. He also has hypokalemia which has been replaced. The patient has been encouraged to ambulate however he has refused physical therapy and thus still continues to be weak and fatigued. The patient also has a diagnosis as adult failure to thrive and is a result of this is being considered for placement. The patient's dehydration has been essentially resolved and I have also ordered a chest x-ray for the morning to review the patient's pleural effusion. Placement pending.
--- NOTE | 2018-03-02 11:01 | PCM.DCSUM1 ---
Discharge Summary - Hospital Course Brief History: This 57 year old male with pmh of DVT, COPD, tobacco use and alcohol abuse presented to the ED today via EMS after his sister found him on the floor. He reports he was on the floor overnight because he was was so weak that he was unable to walk or get up. He reports he has been short of breath for "awhile", months possibly. He has not been eating over the last week and has not eaten much over the last month or two either, per history of sisters at bedside. He reports right sided chest pain when he coughs. He has productive cough with yellow phlegm, no blood. He Denies abdominal pain, urinary concerns. Does report diarrhea, "all the time". He reports some ankle and feet swelling. NO headache. No confusion noted per family. He has smoked for 50+ years and currently smokes 2 ppd. Drinks 5-7 beers daily. In the ED, CBC WNL. Na 117, Cl 84, Bicarb 20.9, Phosphorus 3.1, Mg 1.9. Bili 0.8. He was noted to be dyspneic, but satting 98% on RA. CXR obtained which revealed moderate to large pleural effusion with possible underlying infectious process. Admission recommended for hyponatremia, failure to thrive and pleural effusion. Diagnosis: Stroke: No - Discharge Data Discharge Date: 03/02/18 Discharge Disposition: DC/Tfer to Acute Hospital 02 Condition: Poor - Discharge Diagnosis/Problem(s) (1) Hyponatremia SNOMED Code(s): 87972561 ICD Code: E87.1 - HYPO-OSMOLALITY AND HYPONATREMIA Status: Acute Priority : High Current Visit: Yes (2) Pleural effusion SNOMED Code(s): 86342802 ICD Code: J90 - PLEURAL EFFUSION, NOT ELSEWHERE CLASSIFIED Status: Acute Current Visit: Yes (3) Dyspnea SNOMED Code(s): 829884313 ICD Code: R06.00 - DYSPNEA, UNSPECIFIED Status: Acute Priority: High Current Visit: Yes Qualifiers: Dyspnea type: dyspnea on exertion Qualified Code(s): R06.09 - Other forms of dyspnea (4) Total self-care deficit SNOMED Code(s): 28877509 ICD Code: R41.89 - OTH SYMPTOMS AND SIGNS W COGNITIVE FUNCTIONS AND AWARENESS Status: Acute Current Visit: Yes (5) Generalized weakness SNOMED Code(s): 32318976 ICD Code: R53.1 - WEAKNESS Status: Chronic Priority: High Current Visit : Yes (6) Protein malnutrition SNOMED Code(s): 495281993 ICD Code: E46 - UNSPECIFIED PROTEIN-CALORIE MALNUTRITION Status: Acute Current Visit: Yes (7) Failure to thrive in adult SNOMED Code(s): 235717261 ICD Code: R62.7 - ADULT FAILURE TO THRIVE Status: Chronic Priority: High Current Visit: Yes (8) Alcohol abuse SNOMED Code(s): 91312279 ICD Code: F10.10 - ALCOHOL ABUSE, UNCOMPLICATED Status: Chronic Priority : High Current Visit: Yes (9) Hx of deep venous thrombosis SNOMED Code(s): 842510349 ICD Code: Z86.718 - PERSONAL HISTORY OF OTHER VENOUS THROMBOSIS AND EMBOLISM Status: Chronic Current Visit: Yes (10) COPD (chronic obstructive pulmonary disease) SNOMED Code(s): 14888550 ICD Code: J44.9 - CHRONIC OBSTRUCTIVE PULMONARY DISEASE, UNSPECIFIED Status : Chronic Current Visit: Yes (11) Tobacco abuse SNOMED Code(s): 874478705 ICD Code: Z72.0 - TOBACCO USE Status: Chronic Current Visit: Yes - Patient Summary/Data Consults: Consultations 02/25/18 09:01 Consult to Physical Therapy [PT Evaluation and Treatment] [CONS] Routine 02/25/18 10:41 Consult to Automation Technician [CONS] Routine - Discharge Plan Home Medications: Home Meds Albuterol [Ventolin HFA] 2 puff Q4HR 02/24/18 [History] Fluticasone/Salmeterol [Advair 250-50 Diskus] 1 puff BID 02/24/18 [History] Ipratropium/Albuterol Sulfate [Iprat-Albut 0.5-3(2.5) MG/3 ML] 1 ampule Q6HR [History] Forms: ED Department Discharge Referrals: PCP,None [Primary Care Provider] - - Discharge Summary/Plan Comment DC Time >30 min.: No Discharge Summary/Plan Comment: Discharge Diagnoses: R moderate to large Right pleural Effusion-suspect malignancy Failure to thrive Hypokalemia Alcohol abuse Tobacco abuse- 2 ppd Hyponatremia- stable Protein malnutrition, low albumin Orlando was admitted secondary to severe dyspnea and noted to have large R sided pleural effusion. Thoracentesis was obtained on admission which revealed exudative fluid. Cytology returned non malignant cells. CT with contrast post thoracentesis, revealed compressive atelectasis, but a remained moderate to large pleural effusion made further evaluation difficult. He has been treated with Levaquin due to questions pneumonia as well. Initially also treated with Vancomycin due to BC returning positive, but returned a contaminate and vancomycin was since stopped. He has been also treated for hyponatremia with IV fluids, which is stable at 134 today. Hypokalemia noted today and is being treated with oral supplementation and IV Magnesium. He is aware malignancy still can not be ruled out and due to blood appearance of pleural fluid there is high suspicion for malignancy. Today he will be transferred to [facility] due to the need for further evaluation of pleural effusion by Pulmonology. Dr Hedrick in the ED has accepted him for transfer today. I did speak with Orlando and his sister Yelena who are in agreement for transfer. Orlando continues to be very deconditioned and becomes very dyspneic with activity due to pleural effusion and has been refusing physical therapy because of this. He would benefit from further thoracentesis and evaluation. Sisters are very involved and prior to admission had started the process of getting a psychiatric hold in place so they were able to get him into alcohol treatment facility. He does currently have a [address]. Sisters are aware - General Info Date of Service: 03/02/18 Admission Dx/Problem (Free Text: Dyspnea Subjective Update: Sitting in recliner, reports very tired and short of breath this morning, on 1- 2 L NC depending on activity. Continues to cough up white to yellow sputum, that is very thick uses Yanker to clear. No chest pain. No abdominal pain. Functional Status: Reports: Pain Controlled, Tolerating Diet, Urinating. Denies : Ambulating - Review of Systems General: Reports: Weakness. Denies: Fever HEENT: Reports: No Symptoms. Denies: Headaches, Sore Throat Pulmonary: Reports: Shortness of Breath, Pleuritic Chest Pain, Cough, Sputum Cardiovascular: Denies: Chest Pain, Palpitations Gastrointestinal: Reports: No Symptoms. Denies: Abdominal Pain, Nausea, Vomiting Genitourinary: Reports: No Symptoms. Denies: Dysuria, Frequency, Burning Musculoskeletal: Reports: No Symptoms Neurological: Reports: No Symptoms Psychiatric: Reports: No Symptoms - Patient Data Vitals - Most Recent: Last Vital Signs Temp 98.7 F 03/02/18 08:00 Pulse 94 03/02/18 08:00 Resp 19 03/02/18 08:00 BP 106/69 03/02/18 08:00 Pulse Ox 91 L 03/02/18 08:00 Weight - Most Recent: 72.484 kg I&O - Last 24 hours: Intake & Output 03/01/18 03/02/18 03/02/18 22:59 06:59 14:59 Intake Total 1000 600 Output Total 800 500 Balance 200 100 Lab Results - Last 24 hrs: Laboratory Results - last 24 hr 03/02/18 03/02/18 Range/Units 06:00 06:00 WBC 5.86 (4.0-11.0) K/uL RBC 2.66 L (4.50-5.90) M/uL Hgb 8.6 L (13.0-17.0) g/dL Hct 25.9 L (38.0-50.0) % MCV 97.4 (80.0-98.0) fL MCH 32.3 H (27.0-32.0) pg MCHC 33.2 (31.0-37.0) g/dL RDW Std Deviation 52.8 (28.0-62.0) fl RDW Coeff of Sage 15 (11.0-15.0) % Plt Count 127 L (150-400) K/uL MPV 10.10 (7.40-12.00) fL Neut % (Auto) 78.8 (48.0-80.0) % Lymph % (Auto) 15.0 L (16.0-40.0) % Treasure % (Auto) 5.5 (0.0-15.0) % Eos % (Auto) 0.5 (0.0-7.0) % Baso % (Auto) 0.2 (0.0-1.5) % Neut # (Auto) 4.6 (1.4-5.7) K/uL Lymph # (Auto) 0.9 (0.6-2.4) K/uL Treasure # (Auto) 0.3 (0.0-0.8) K/uL Eos # (Auto) 0.0 (0.0-0.7) K/uL Baso # (Auto) 0.0 (0.0-0.1) K/uL Nucleated RBC % 0.0 /100WBC Nucleated RBCs # 0 K/uL Sodium 134 L (136-148) mmol/L Potassium 2.8 L (3.5-5.1) mmol/L Chloride 101 (98-107) mmol/L Carbon Dioxide 26.7 (21.0-32.0) mmol/L BUN 3 L (7.0-18.0) mg/dL Creatinine 0.7 L (0.8-1.3) mg/dL Est Cr Clr Drug Dosing 106.23 mL/min Estimated GFR (MDRD) > 60.0 ml/min Glucose 164 H (74-106) mg/dL Calcium 8.0 L (8.5-10.1) mg/dL Magnesium 1.8 (1.8-2.4) mg/dL Total Bilirubin 0.4 (0.2-1.0) mg/dL AST 33 (15-37) IU/L ALT 31 (14-63) IU/L Alkaline Phosphatase 64 (46-116) U/L Total Protein 4.9 L (6.4-8.2) g/dL Albumin 1.6 L (3.4-5.0) g/dL Globulin 3.3 (2.6-4.0) g/dL Albumin/Globulin Ratio 0.5 L (0.9-1.6) DEE Results - Last 24 hrs: Microbiology 02/24/18 10:42 Aerobic Blood Culture - Final Blood - Venous - Lab Draw NO GROWTH AFTER 5 DAYS Anaerobic Blood Culture - Final NO GROWTH AFTER 5 DAYS 02/24/18 10:35 Aerobic Blood Culture - Final Blood - Venous Anaerobic Blood Culture - Final NO GROWTH AFTER 5 DAYS Med Orders - Current: Current Medications Acetaminophen (Tylenol) 650 mg PO Q4H PRN PRN Reason: Pain (mild 1-3) Last Admin: 02/26/18 17:32 Dose: 650 mg Albuterol/Ipratropium (Duoneb 3.0-0.5 Mg/3 Ml) 3 ml NEB Q4HRRT RAFAL Last Admin: 03/02/18 09:43 Dose: 3 ml Benzonatate (Tessalon Perles) 100 mg PO Q6H PRN PRN Reason: Cough Last Admin: 03/01/18 21:46 Dose: 100 mg Docusate Sodium (Colace) 100 mg PO BID PRN PRN Reason: Constipation Last Admin: 02/26/18 17:33 Dose: 100 mg Folic Acid (Folic Acid) 1 mg PO BEDTIME [facility] Last Admin: 03/01/18 21:47 Dose: 1 mg Heparin Sodium (Porcine) (Heparin Sodium) 5,000 units SUBCUT Q12H [facility] Last Admin: 03/01/18 21:47 Dose: 5,000 units Levofloxacin/Dextrose 750 mg/ (Premix) 150 mls @ 100 mls/hr IV Q24H [facility] Last Admin: 03/01/18 16:11 Dose: 100 mls/hr Lorazepam (Ativan) 0 mg IVPUSH Q4H PRN; Protocol PRN Reason: CIWAA Lorazepam (Ativan) 0.5 mg PO Q8H PRN PRN Reason: anxiety/agitation Mirtazapine (Remeron) 15 mg PO BEDTIME [facility] Last Admin: 03/01/18 21:47 Dose: 15 mg Morphine Sulfate (Morphine) 2 mg IVPUSH Q2H PRN PRN Reason: Pain (severe 7-10) Last Admin: 02/27/18 14:01 Dose: 2 mg Nicotine (Habitrol) 21 mg TRDERM DAILY [facility] Last Admin: 03/02/18 09:11 Dose: 21 mg Ondansetron HCl (Zofran) 4 mg IVPUSH Q4H PRN PRN Reason: Nausea Oxycodone HCl (Oxycodone) 5 mg PO Q4H PRN PRN Reason: Pain Last Admin: 03/02/18 09:10 Dose: 5 mg Pantoprazole Sodium (Protonix Iv) 40 mg IVPUSH Q24H [facility] Last Admin: 03/01/18 15:58 Dose: 40 mg Potassium Chloride (Klor-Con M20) 40 meq PO TID@0830,1200,1700 [facility] Stop: 03/02/18 17:01 Last Admin: 03/02/18 09:10 Dose: 40 meq Fluticasone/Salmeterol (Advair Diskus 250-50) 1 puff INH BID [facility] Last Admin: 03/02/18 08:43 Dose: 1 puff Sodium Chloride (Saline Flush) 10 ml FLUSH ASDIRECTED PRN PRN Reason: Keep Vein Open Sodium Chloride (Saline Flush) 2.5 ml FLUSH ASDIRECTED PRN PRN Reason: Keep Vein Open Temazepam (Restoril) 15 mg PO BEDTIME PRN PRN Reason: Sleep Last Admin: 03/01/18 21:46 Dose: 15 mg Thiamine HCl (Vitamin B-1) 100 mg PO BEDTIME [facility] Last Admin: 03/01/18 21:47 Dose: 100 mg Discontinued Medications Albuterol/Ipratropium (Duoneb 3.0-0.5 Mg/3 Ml) 3 ml NEB Q4HRRT PRN PRN Reason: Shortness Of Breath/wheezing Multivitamins/Minerals 10 ml/Thiamine HCl 100 mg/ Folic Acid 1 mg/ Sodium Chloride 1,011.2 mls @ 999 mls/hr IV ONETIME ONE Stop: 02/24/18 11:24 Last Admin: 02/24/18 11:06 Dose: 999 mls/hr Magnesium Sulfate 2 gm/ Premix 50 mls @ 25 mls/hr IV ONETIME ONE Stop: 02/24/18 12:39 Last Admin: 02/24/18 11:06 Dose: 25 mls/hr Sodium Chloride (Normal Saline) 1,000 mls @ 100 mls/hr IV ASDIRECTED [facility] Last Admin: 02/24/18 16:04 Dose: 100 mls/hr Vancomycin HCl 1 gm/ Sodium (Chloride) 250 mls @ 166 mls/hr IV Q12H [facility] Last Admin: 02/25/18 02:33 Dose: 166 mls/hr Vancomycin HCl 1 gm/ Sodium (Chloride) 250 mls @ 166 mls/hr IV Q8H [facility] Last Admin: 02/27/18 02:13 Dose: 166 mls/hr Potassium Chloride/Sodium Chloride (Normal Saline With 40 Meq Kcl) 1,000 mls @ 100 mls/hr IV ASDIRECTED [facility] Stop: 02/26/18 00:59 Last Admin: 02/25/18 15:09 Dose: 100 mls/hr Magnesium Sulfate 2 gm/ Premix 50 mls @ 50 mls/hr IV ONETIME ONE Stop: 02/26/18 09:14 Last Admin: 02/26/18 08:34 Dose: 50 mls/hr Sodium Chloride (Normal Saline) 1,000 mls @ 100 mls/hr IV ASDIRECTED [facility] Last Admin: 03/01/18 06:19 Dose: 100 mls/hr Magnesium Sulfate 2 gm/ Premix 50 mls @ 50 mls/hr IV ONETIME ONE Stop: 03/02/18 09:14 Last Admin: 03/02/18 09:11 Dose: 50 mls/hr Iopamidol (Isovue Multipack-370 (76%)) 75 ml IVPUSH ONETIME STA Stop: 02/24/18 15:50 Last Admin: 02/24/18 15:50 Dose: 75 ml Nicotine (Habitrol) 14 mg TRDERM ONETIME ONE Stop: 02/24/18 11:26 Last Admin: 02/24/18 11:34 Dose: 14 mg Potassium Chloride (Klor-Con M20) 40 meq PO ONETIME ONE Stop: 02/24/18 14:57 Last Admin: 02/24/18 16:06 Dose: 40 meq Potassium Chloride (Klor-Con M20) 40 meq PO BID@1500,1700 [facility] Stop: 02/25/18 17:01 Last Admin: 02/25/18 17:00 Dose: 40 meq Potassium Chloride (Klor-Con M20) 20 meq PO ONETIME ONE Stop: 02/28/18 06:57 Last Admin: 02/28/18 08:11 Dose: 20 meq Simethicone (Simethicone) 80 mg PO ONETIME ONE Stop: 03/01/18 12:37 Last Admin: 03/01/18 13:07 Dose: 80 mg Sodium Phosphate (Neutra-Phos) 250 mg PO QID [facility] Last Admin: 02/26/18 17:55 Dose: Not Given Sodium Phosphate (Neutra-Phos) 250 mg PO QID [facility] Last Admin: 02/27/18 06:24 Dose: Not Given Vancomycin HCl (Pharmacy To Dose - Vancomycin) 1 dose .XX ASDIRECTED [facility] - Exam Quality Assessment: Reports: Supplemental Oxygen, DVT Prophylaxis General: Reports: Alert, Oriented, Cooperative, No Acute Distress Lungs: Reports: Rhonchi (throughout). Denies: Normal Respiratory Effort ( dyspneic) Cardiovascular: Reports: Regular Rate, Regular Rhythm, No Murmurs GI/Abdominal Exam: Normal Bowel Sounds, Soft, Non-Tender Back Exam: Reports: Normal Inspection, Full Range of Motion Extremities: Pedal Edema (+1 pitting edema up to thighs) Wound/Incisions: Reports: Decubitis (stage 1 buttock) Neurological: Reports: No New Focal Deficit Psy/Mental Status: Reports: Alert, Normal Affect, Normal Mood
== END 2018-03-02 11:45 | DRG 180 ==
LOC: MW.ED 10:12 → MW.ICU 12:11 → MW.MS 02-25 21:06
PROVIDERS: ADMIT Internal Medicine; ATTEND Internal Medicine
PROC: 0W993ZX Drainage of Right Pleural Cavity, Percutaneous Approach, Diagnostic (ICD-10-PCS; principal; 2018-02-24)
DX: C38.4 Malignant neoplasm of pleura (principal); J18.9 Pneumonia, unspecified organism; E87.1 Hypo-osmolality and hyponatremia; J90 Pleural effusion, not elsewhere classified; E46 Unspecified protein-calorie malnutrition; F17.210 Nicotine dependence, cigarettes, uncomplicated; E86.0 Dehydration; R62.7 Adult failure to thrive; J44.9 Chronic obstructive pulmonary disease, unspecified; F10.10 Alcohol abuse, uncomplicated; Z86.718 Personal history of other venous thrombosis and embolism; R53.1 Weakness; R41.89 Other symptoms and signs involving cognitive functions and awareness; E87.6 Hypokalemia; Z68.21 Body mass index [BMI] 21.0-21.9, adult; Y90.0 Blood alcohol level of less than 20 mg/100 ml
CPT/HCPCS: 32555; 36415; 71045; 71045-26; 71260; 71260-26; 80048; 80053; 80202; 81001; 82150; 82550; 82945; 83605; 83615; 83690; 83735; 83880; 84100; 84157; 84478; 85025; 85610; 85730; 87040; 87070; 87086; 87205; 88104; 89050; 93005; 94640; 94664; 96365; 96366; 96368; 97110-GP; 97161-GP; 99284; 99285-25; A9270-GY; C9113; G0480; J1644; J1956; J2270; J3370; J3411; J3475; J3480; J7040; J7050; J7620-GY; Q9967

== ENCOUNTER 2018-05-29 15:19 | Emergency (ER) | payer MEDICAID ==
[2018-05-29] MEDS ORDERED: Ondansetron 4 MG/2 ML SDV IVPUSH ONE (15:41)
[2018-05-29] MEDS ORDERED: Ketorolac 30 MG/ML SDV IVPUSH ONE (15:41)
[2018-05-29] MEDS ORDERED: Sodium Chloride 0.9% 1,000 ML IV ONE ×2 (15:41→19:56)
[2018-05-29] MEDS ORDERED: Albuterol/Ipratropium 3.0-0.5 MG/3 ML Neb Soln NEB ONE (15:43)
[2018-05-29] MEDS ORDERED: methylPREDNISolone Sodium Succinate 125 MG/2 ML SDV IVPUSH ONE (15:43)
[2018-05-29 17:15] LABS: CHLORIDE,CL 97 mmol/L (98-107); SODIUM,NA 132 mmol/L (136-148)
--- NOTE | 2018-05-29 17:20 | CR ---
INDICATION: Wheezing TECHNIQUE: Chest 1 views COMPARISON: April 10, 2018 FINDINGS: Cardiovascular and mediastinum: Heart size and vasculature are normal in caliber and appearance. Lungs and pleural spaces: Minimal bibasilar scarring or atelectasis. No infiltrates or effusions. No pneumothorax. Stable elevation of the right diaphragm. Bones and soft tissues: No significant findings. IMPRESSION: Minimal bibasilar atelectasis or scarring. Otherwise unremarkable chest. Dictated by Lefty Mancini MD @ May 29 2018 5:16PM Signed by Dr. Lefty Mancini @ May 29 2018 5:18PM
[2018-05-29] MEDS ORDERED: Iopamidol 755 MG/ML 500 ML Multipack Bottle IVPUSH STA (18:30)
--- NOTE | 2018-05-29 18:45 | EDM.PDOC ---
ED HPI GENERAL MEDICAL PROBLEM - General Chief Complaint: Abdominal Pain Stated Complaint: ABDOMINAL PAIN Time Seen by Provider: 05/29/18 15:21 Source of Information: Reports: Patient History Limitations: Reports: No Limitations - History of Present Illness INITIAL COMMENTS - FREE TEXT/NARRATIVE: HISTORY AND PHYSICAL: History of present illness: Patient is a 57-year-old male presents to the ED today with concern of a 9 out of 10 right upper quadrant abdominal pain that started since this morning. He describes the pain as sharp and constant. Patient states he's also had some nausea but has not vomited with the symptoms. Patient denies any prior abdominal surgeries. Patient has not taken anything for his symptoms and he denies radiation of pain. Patient states he is a chronic smoker and smokes about a pack a day for over 40 years. Patient denies fever, chills, chest pain, shortness of breath, or cough. Denies headache, neck stiff ness, change in vision, syncope, or near syncope. Denies vomiting, diarrhea, constipation, or dysuria. Has not noted any blood in urine or stool. Patient states he's also had a decrease in appetite over the past several days. Patient has a history of COPD Review of systems: As per history of present illness and below otherwise all systems reviewed and negative. Past medical history: As per history of present illness and as reviewed below otherwise noncontributory. Surgical history: As per history of present illness and as reviewed below otherwise noncontributory. Social history: See social history for further information Family history: As per history of present illness and as reviewed below otherwise noncontributory. Physical exam: General: Patient is alert, oriented, and in no acute distress. Patient sitting comfortably on exam table. Patient does appear chronically ill and older than stated age. HEENT: Atraumatic, normocephalic, pupils equal and reactive bilaterally, negative for conjunctival pallor or scleral icterus, mucous membranes moist, TMs normal bilaterally, throat clear, neck supple, nontender, trachea midline. No drooling or trismus noted. No meningeal signs. No hot potato voice noted. Lungs: Diffuse wheezing to auscultation of all lung kowalski, breath sounds equal bilaterally, chest nontender. Heart: S1S2, regular rate and rhythm without overt murmur Abdomen: Moderate pain to palpation of the right upper and lower quadrants without guarding. Otherwise, soft, nondistended. Positive bowel sounds throughout all quadrants and slightly hyperactive. Negative for masses or hepatosplenomegaly. Negative for costovertebral tenderness. Pelvis: Stable nontender. Genitourinary: Deferred. Rectal: Deferred. Skin: Intact, warm, dry. No lesions or rashes noted. Extremities: Atraumatic, negative for cords or calf pain. Neurovascular unremarkable. Neuro: Awake, alert, oriented. Cranial nerves II through XII unremarkable. Cerebellum unremarkable. Motor and sensory unremarkable throughout. Exam nonfocal. Notes: Dr. Ndiaye, general surgery, was consulted on this patient came in to see the patient. See her official consult note for further disposition. Will transfer to [facility] in [place] to Dr. Flores. Diagnostics: CBC, CMP, lipase, UA, EKG, troponin, abdominal pelvic CT, lactate, blood cultures 2, chest x-ray Therapeutics: DuoNeb, Toradol, Solu-Medrol, Zofran, saline, Zosyn Impression: Acalculous cholecystitis Ileus h/o COPD Plan: 1. Transfer to [facility] to Dr. Flores Definitive disposition and diagnosis as appropriate pending reevaluation and review of above. right abdomen Pain Score (Numeric/FACES): 10 - Related Data Allergies Allergy/AdvReac Type Severity Reaction Status Date / Time No Known Allergies Allergy Verified 02/24/18 10:20 Home Meds: Home Meds Albuterol [Ventolin HFA] 2 puff Q4HR 02/24/18 [History] Fluticasone/Salmeterol [Advair 250-50 Diskus] 1 puff BID 02/24/18 [History] Ipratropium/Albuterol Sulfate [Iprat-Albut 0.5-3(2.5) MG/3 ML] 1 ampule Q6HR [History] Tamsulosin HCl [Flomax] 0.4 mg PO DAILY 05/29/18 [History] buPROPion [Wellbutrin] 150 mg PO DAILY 05/29/18 [History] Past Medical History - Past Health History Medical/Surgical History: Denies Medical/Surgical History Respiratory History: Reports: COPD Gastrointestinal History: Reports: None Musculoskeletal History: Reports: Fracture Psychiatric History: Reports: Addiction Oncologic (Cancer) History: Reports: None - Infectious Disease History Infectious Disease History: Reports: None - Past Surgical History Other GI Surgeries/Procedures: chronic diarrhea last few months; incontinent Musculoskeletal Surgical History: Reports: Other (See Below) Other Musculoskeletal Surgeries/Procedures:: fell 4 yrs ago a few feet with no fracture Social & Family History - Family History Family Medical History: Noncontributory - Tobacco Use Smoking Status *Q: Current Every Day Smoker Years of Tobacco use: 40 Packs/Tins Daily: 1 - Caffeine Use Caffeine Use: Reports: None - Recreational Drug Use Recreational Drug Use: No - Living Situation & Occupation Living situation: Reports: Single, with Family (sister) Occupation: Disabled ED ROS GENERAL - Review of Systems Review Of Systems: ROS reveals no pertinent complaints other than HPI. ED EXAM, GI/ABD - Physical Exam Exam: See Below (See dictation) Course - Vital Signs Last Recorded V/S: Last Vital Signs Temp 36.6 C 05/29/18 19:24 Pulse 67 05/29/18 19:24 Resp 20 05/29/18 19:24 BP 109/63 05/29/18 19:24 Pulse Ox 95 05/29/18 19:24 - Orders/Labs/Meds Orders: Active Orders 24 hr Category Date Time Status EKG Documentation Completion [RC] STAT Care 05/29/18 15:42 Active Notify Provider Consults [RC] ASDIRECTED Care 05/29/18 19:31 Active Oxygen Therapy, ED [RC] ASDIRECTED Care 05/29/18 16:34 Active RT Aerosol Therapy [RC] ASDIRECTED Care 05/29/18 15:43 Active Consult to Physician [CONS] Stat Cons 05/29/18 19:29 Active CULTURE BLOOD [BC] Stat Lab 05/29/18 19:06 Received CULTURE BLOOD [BC] Stat Lab 05/29/18 19:18 Received UA RFX DEE AND CULT IF INDIC [URIN] Stat Lab 05/29/18 15:41 Ordered Piperacillin/Tazobactam [Piperacil-Tazobact] 3.375 gm Med 05/29/18 19:48 Ordered Sodium Chloride 0.9% [Normal Saline] 50 ml IV ONETIME Blood Culture x2 Reflex Set [OM.PC] Stat Oth 05/29/18 18:46 Ordered Labs: Laboratory Tests 05/29/18 05/29/18 05/29/18 Range/Units 15:57 15:57 19:18 WBC 15.84 H (4.0-11.0) K/uL RBC 4.93 (4.50-5.90) M/uL Hgb 16.4 (13.0-17.0) g/dL Hct 48.3 (38.0-50.0) % MCV 98.0 (80.0-98.0) fL MCH 33.3 H (27.0-32.0) pg MCHC 34.0 (31.0-37.0) g/dL RDW Std Deviation 65.2 H (28.0-62.0) fl RDW Coeff of Sage 18 H (11.0-15.0) % Plt Count 168 (150-400) K/uL MPV 10.10 (7.40-12.00) fL Neut % (Auto) 89.5 H (48.0-80.0) % Lymph % (Auto) 5.2 L (16.0-40.0) % [place] % (Auto) 5.2 (0.0-15.0) % Eos % (Auto) 0.0 (0.0-7.0) % Baso % (Auto) 0.1 (0.0-1.5) % Neut # (Auto) 14.2 H (1.4-5.7) K/uL Lymph # (Auto) 0.8 (0.6-2.4) K/uL [place] # (Auto) 0.8 (0.0-0.8) K/uL Eos # (Auto) 0.0 (0.0-0.7) K/uL Baso # (Auto) 0.0 (0.0-0.1) K/uL Nucleated RBC % 0.0 /100WBC Nucleated RBCs # 0 K/uL Lactate 1.2 (0.20-2.00) mmol/L Sodium 132 L (136-148) mmol/L Potassium 3.8 (3.5-5.1) mmol/L Chloride 97 L (98-107) mmol/L Carbon Dioxide 20.8 L (21.0-32.0) mmol/L BUN 7 (7.0-18.0) mg/dL Creatinine 0.7 L (0.8-1.3) mg/dL Est Cr Clr Drug Dosing 94.77 mL/min Estimated GFR (MDRD) > 60.0 ml/min Glucose 206 H (74-106) mg/dL Calcium 9.1 (8.5-10.1) mg/dL Total Bilirubin 1.4 H (0.2-1.0) mg/dL AST 29 (15-37) IU/L ALT 18 (14-63) IU/L Alkaline Phosphatase 115 (46-116) U/L Troponin I < 0.050 (0.000-0.056) ng/mL Total Protein 7.4 (6.4-8.2) g/dL Albumin 3.4 (3.4-5.0) g/dL Globulin 4.0 (2.6-4.0) g/dL Albumin/Globulin Ratio 0.9 (0.9-1.6) Lipase 63 L (73-393) U/L Meds: Medications Discontinued Medications Generic Name Dose Route Start Last Admin Trade Name Freq PRN Reason Stop Dose Admin Albuterol/Ipratropium 3 ml 05/29/18 15:43 05/29/18 16:03 Duoneb 3.0-0.5 Mg/3 Ml NEB 05/29/18 15:44 3 ml ONETIME ONE Administration Sodium Chloride 1,000 mls @ 999 mls/hr 05/29/18 15:41 05/29/18 16:00 Normal Saline IV 05/29/18 16:41 999 mls/hr BOLUS ONE Administration Iopamidol 100 ml 05/29/18 18:30 05/29/18 18:31 Isovue Multipack-370 (76%) IVPUSH 05/29/18 18:31 100 ml ONETIME STA Administration Ketorolac Tromethamine 30 mg 05/29/18 15:41 05/29/18 16:31 Toradol IVPUSH 05/29/18 15:42 30 mg ONETIME ONE Administration Methylprednisolone Sodium Succinate 125 mg 05/29/18 15:43 05/29/18 16:10 Solu-Medrol IVPUSH 05/29/18 15:44 125 mg ONETIME ONE Administration Ondansetron HCl 4 mg 05/29/18 15:41 05/29/18 16:11 Zofran IVPUSH 05/29/18 15:42 4 mg ONETIME ONE Administration Departure - Departure Time of Disposition: 19:52 Disposition: DC/Tfer to [facility] 02 Clinical Impression: Acalculous cholecystitis, Ileus, History of COPD - Discharge Information Referrals: Jian Jimenez MD [Primary Care Provider] - Forms: ED Department Discharge - My Orders Last 24 Hours: My Active Orders 05/29/18 15:41 UA RFX DEE AND CULT IF INDIC [URIN] Stat 05/29/18 15:42 EKG Documentation Completion [RC] STAT 05/29/18 15:43 RT Aerosol Therapy [RC] ASDIRECTED 05/29/18 16:34 Oxygen Therapy, ED [RC] ASDIRECTED 05/29/18 18:46 Blood Culture x2 Reflex Set [OM.PC] Stat 05/29/18 19:06 CULTURE BLOOD [BC] Stat 05/29/18 19:18 CULTURE BLOOD [BC] Stat 05/29/18 19:29 Consult to Physician [CONS] Stat 05/29/18 19:31 Notify Provider Consults [RC] ASDIRECTED 05/29/18 19:48 Piperacillin/Tazobactam [Piperacil-Tazobact] 3.375 gm Sodium Chloride 0.9% [ Normal Saline] 50 ml IV ONETIME - Assessment/Plan Last 24 Hours: My Active Orders 05/29/18 15:41 UA RFX DEE AND CULT IF INDIC [URIN] Stat 05/29/18 15:42 EKG Documentation Completion [RC] STAT 05/29/18 15:43 RT Aerosol Therapy [RC] ASDIRECTED 05/29/18 16:34 Oxygen Therapy, ED [RC] ASDIRECTED 05/29/18 18:46 Blood Culture x2 Reflex Set [OM.PC] Stat 05/29/18 19:06 CULTURE BLOOD [BC] Stat 05/29/18 19:18 CULTURE BLOOD [BC] Stat 05/29/18 19:29 Consult to Physician [CONS] Stat 05/29/18 19:31 Notify Provider Consults [RC] ASDIRECTED 05/29/18 19:48 Piperacillin/Tazobactam [Piperacil-Tazobact] 3.375 gm Sodium Chloride 0.9% [ Normal Saline] 50 ml IV ONETIME
--- NOTE | 2018-05-29 19:00 | CT ---
I clinical Indication: Right lower and right upper quadrant pain. TECHNIQUE: Axial intravenously infused CT or cuts performed from above the diaphragm to the below the ischial tuberosities 100 mL all Isovue-370 was injected intravenously. FINDINGS: The gallbladder is very distended and there is a trace of air within the gallbladder. There is pericholecystic fluid. There is no biliary dilation. The liver, spleen, pancreas, adrenals and kidneys appear normal. There is prominent fluid and air within the right colon and within some of the small bowel loops. An ileus suspected. There is no free intraperitoneal air or fluid. The urinary bladder, seminal vesicles and prostate gland appear normal. There are no enlarged iliac or inguinal nodes. There are small bilateral pleural effusions. There is atelectasis at both lung bases. IMPRESSION: 1. Grossly abnormal gallbladder which is distended and there is pericholecystic fluid. The appears be small amount air within the gallbladder. Consider acalculous cholecystitis. Gallbladder sonography is recommended. 2. There may be an ileus present. 3. Small bilateral pleural effusions. Please note that all CT scans at this facility use dose modulation, iterative reconstruction, and/or weight-based dosing when appropriate to reduce radiation dose to as low as reasonably achievable. Dictated by Michael Paris MD @ May 29 2018 6:51PM Signed by Dr. Michael Paris @ May 29 2018 6:58PM
[2018-05-29] MEDS ORDERED: Piperacillin/Tazobactam 3.375 GM in Sodium Chloride 0.9% 50 ML IV ONE (19:48)
--- NOTE | 2018-05-29 20:34 | PCM.CONS ---
H&P History of Present Illness - General Date of Service: 05/29/18 Source of Information: Patient History Limitations: Reports: No Limitations - History of Present Illness Initial Comments - Free Text/Narative: Patient is a 57-year-old male with past medical history significant for COPD, failure to thrive, DVT and hyponatremia. He presented today with right sided abdominal pain. It started last night. He has tenderness in the RUQ under his ribs. He states that any movement makes it worse. It was associated with subjective fever and chills as well as nausea and vomiting. He had a BM today and is still passing gas. He denies feeling bloated. He did not take anything at home for the pain but was given tramadol on arrival to the ED which helped his pain. He denies ever having pain like this before. His vital signs were stable on arrival. He was afebrile. On physical exam he is tender to palpation in the RUQ with a positive Huggins's sign. CBC showed a WBC of 15.8K with a left shift. His glucose was elevated. His sodium was 132 and his bilirubin was 1.4 with otherwise normal LFTs. CT of the abdomen pelvis showed a very distended gallbladder with pericholecystic fluid and trace air within the gallbladder. The right colon and small bowel around the gallbladder appeared markedly distended as well. There was no CT evidence of cholelithiasis. right abdomen Pain Score (Numeric/FACES): 10 - Related Data Allergies/Adverse Reactions: Allergies Allergy/AdvReac Type Severity Reaction Status Date / Time No Known Allergies Allergy Verified 02/24/18 10:20 Home Medications: Home Meds Albuterol [Ventolin HFA] 2 puff Q4HR 02/24/18 [History] Fluticasone/Salmeterol [Advair 250-50 Diskus] 1 puff BID 02/24/18 [History] Ipratropium/Albuterol Sulfate [Iprat-Albut 0.5-3(2.5) MG/3 ML] 1 ampule Q6HR [History] Tamsulosin HCl [Flomax] 0.4 mg PO DAILY 05/29/18 [History] buPROPion [Wellbutrin] 150 mg PO DAILY 05/29/18 [History] Past Medical History - Past Health History Medical/Surgical History: Denies Medical/Surgical History Respiratory History: Reports: COPD Gastrointestinal History: Reports: None Musculoskeletal History: Reports: Fracture Psychiatric History: Reports: Addiction Oncologic (Cancer) History: Reports: None - Infectious Disease History Infectious Disease History: Reports: None - Past Surgical History Other GI Surgeries/Procedures: chronic diarrhea last few months; incontinent Musculoskeletal Surgical History: Reports: Other (See Below) Other Musculoskeletal Surgeries/Procedures:: fell 4 yrs ago a few feet with no fracture Social & Family History - Family History Family Medical History: Noncontributory - Tobacco Use Smoking Status *Q: Current Every Day Smoker Years of Tobacco use: 40 Packs/Tins Daily: 1 - Caffeine Use Caffeine Use: Reports: None - Recreational Drug Use Recreational Drug Use: No - Living Situation & Occupation Living situation: Reports: Single, with Family (sister) Occupation: Disabled H&P Review of Systems - Review of Systems: Review Of Systems: ROS reveals no pertinent complaints other than HPI. Exam - Exam Exam: See Below - Vital Signs Vital Signs: Last Vital Signs Temp 36.6 C 05/29/18 19:24 Pulse 67 05/29/18 20:01 Resp 18 05/29/18 20:01 BP 98/49 L 05/29/18 20:01 Pulse Ox 95 05/29/18 20:01 Weight: 58.967 kg - Exam General: Alert, Oriented, Cooperative, Moderate Distress HEENT: Conjunctiva Clear, Mucosa Moist & [place], Posterior Pharynx Clear Neck: Trachea Midline Lungs: Normal Respiratory Effort Cardiovascular: Regular Rate GI/Abdominal Exam: Guarding (RUQ), Tender (RUQ), Abnormal Bowel Sounds ( diminished ). No: Distended, Rebound - Patient Data Lab Results Last 24 hrs: Laboratory Results - last 24 hr 05/29/18 05/29/18 05/29/18 Range/Units 15:57 15:57 19:18 WBC 15.84 H (4.0-11.0) K/uL RBC 4.93 (4.50-5.90) M/uL Hgb 16.4 (13.0-17.0) g/dL Hct 48.3 (38.0-50.0) % MCV 98.0 (80.0-98.0) fL MCH 33.3 H (27.0-32.0) pg MCHC 34.0 (31.0-37.0) g/dL RDW Std Deviation 65.2 H (28.0-62.0) fl RDW Coeff of Sage 18 H (11.0-15.0) % Plt Count 168 (150-400) K/uL MPV 10.10 (7.40-12.00) fL Neut % (Auto) 89.5 H (48.0-80.0) % Lymph % (Auto) 5.2 L (16.0-40.0) % [place] % (Auto) 5.2 (0.0-15.0) % Eos % (Auto) 0.0 (0.0-7.0) % Baso % (Auto) 0.1 (0.0-1.5) % Neut # (Auto) 14.2 H (1.4-5.7) K/uL Lymph # (Auto) 0.8 (0.6-2.4) K/uL [place] # (Auto) 0.8 (0.0-0.8) K/uL Eos # (Auto) 0.0 (0.0-0.7) K/uL Baso # (Auto) 0.0 (0.0-0.1) K/uL Nucleated RBC % 0.0 /100WBC Nucleated RBCs # 0 K/uL Lactate 1.2 (0.20-2.00) mmol/L Sodium 132 L (136-148) mmol/L Potassium 3.8 (3.5-5.1) mmol/L Chloride 97 L (98-107) mmol/L Carbon Dioxide 20.8 L (21.0-32.0) mmol/L BUN 7 (7.0-18.0) mg/dL Creatinine 0.7 L (0.8-1.3) mg/dL Est Cr Clr Drug Dosing 94.77 mL/min Estimated GFR (MDRD) > 60.0 ml/min Glucose 206 H (74-106) mg/dL Calcium 9.1 (8.5-10.1) mg/dL Total Bilirubin 1.4 H (0.2-1.0) mg/dL AST 29 (15-37) IU/L ALT 18 (14-63) IU/L Alkaline Phosphatase 115 (46-116) U/L Troponin I < 0.050 (0.000-0.056) ng/mL Total Protein 7.4 (6.4-8.2) g/dL Albumin 3.4 (3.4-5.0) g/dL Globulin 4.0 (2.6-4.0) g/dL Albumin/Globulin Ratio 0.9 (0.9-1.6) Lipase 63 L (73-393) U/L Result Diagrams: 05/29/18 15:57 05/29/18 15:57 Consult PN Assessment/Plan Procedures: Procedures CHEST X-RAY 2VW FRONTAL&LATL (10/14/14) COMPLETE CBC W/AUTO DIFF WBC (01/14/17) COMPREHEN METABOLIC PANEL (01/14/17) EXTREMITY STUDY (11/21/15) PT EVALUATION (11/08/13) ROUTINE VENIPUNCTURE (01/14/17) THERAPEUTIC EXERCISES (12/17/13) UPR/L XTREMITY ART 2 LEVELS (09/13/14) X-RAY EXAM CHEST 2 VIEWS (04/10/18) (1) COPD (chronic obstructive pulmonary disease) SNOMED Code(s): 00884608 Code(s): J44.9 - CHRONIC OBSTRUCTIVE PULMONARY DISEASE, UNSPECIFIED Current Visit: No (2) Acalculous cholecystitis SNOMED Code(s): 14361299 Code(s): K81.9 - CHOLECYSTITIS, UNSPECIFIED Current Visit: Yes (3) Ileus SNOMED Code(s): 027235543 Code(s): K56.7 - ILEUS, UNSPECIFIED Current Visit: Yes Problem List Initiated/Reviewed/Updated: Yes My Orders Last 24 Hours: Given the patient's medical co-morbidities and CT findings, I feel he would be better served at a larger hospital with more resources. His gallbladder may require a cholecystostomy tube for drainage which we do not have available here. He was given 2 L of fluid while here in the ER and IV zosyn. I discussed his case with the ER physician in [place] who accepted him for transfer.
== END 2018-05-29 20:53 ==
LOC: MW.ED 15:19
DX: K56.7 Ileus, unspecified (principal); K81.9 Cholecystitis, unspecified; J44.9 Chronic obstructive pulmonary disease, unspecified; F17.210 Nicotine dependence, cigarettes, uncomplicated; Z79.899 Other long term (current) drug therapy
CPT/HCPCS: 36415; 71045; 74177; 80053; 83605; 83690; 84484; 85025; 87040; 93005; 94640; 96361; 96365; 96375; 99285; J1885; J2405; J2543; J2930; J7040; J7050; Q9967; J7620-GY

== ENCOUNTER 2023-12-01 21:07 | Inpatient (IN) | payer MEDICARE, MEDICAID ==
[2023-12-01 21:35] LABS: BASOPHILS ABSOLUTE AUTO 0.02 K/uL (0.00-0.20); BASOPHILS PERCENT AUTO 0.1 % (0.0-1.0); HEMATOCRIT 48.9 % (42.0-52.0); HEMOGLOBIN 16.9 g/dL (14.0-18.0); IMMATURE GRAN ABSOLUTE AUTO 0.05 K/uL (0.00-0.05); IMMATURE GRAN PERCENT AUTO 0.3 % (0.0-0.4); LYMPHOCYTES ABSOLUTE AUTO 0.84 K/uL (1.00-4.80); LYMPHOCYTES PERCENT AUTO 5.6 % (24.0-44.0); MEAN CORPUSCULAR HEMOGLOBIN 32.3 pg (28.0-32.0); MEAN CORPUSCULAR HGB CONC 34.6 g/dL (32.0-36.0); MEAN CORPUSCULAR VOLUME 93.3 fL (83.0-99.0); MEAN PLATELET VOLUME 10.9 fL (9.4-12.4); MONOCYTES ABSOLUTE AUTO 0.87 K/uL (0.00-0.80); MONOCYTES PERCENT AUTO 5.8 % (0.0-8.0); NEUTROPHILS ABSOLUTE AUTO 13.18 K/uL (1.80-7.70); NEUTROPHILS PERCENT AUTO 88.2 % (41.0-71.0); PLATELET COUNT,PLT 134 K/uL (150-400); RED BLOOD CELL COUNT 5.24 M/uL (4.52-5.90); WHITE BLOOD CELL COUNT,WBC 14.96 K/uL (3.9-11.3)
[2023-12-01 21:45] LABS: INR 1.16 (0.86-1.11)
[2023-12-01] MEDS: Sodium Chloride 0.9% 2.5 ML Syringe FLUSH PRN (22:06)
[2023-12-01] MEDS: Albuterol 0.083% 2.5 MG/3 ML Neb Soln NEB STA (22:06)
[2023-12-01] MEDS: methylPREDNISolone Sodium Succinate 125 MG/2 ML SDV IVPUSH STA (22:06)
[2023-12-01] MEDS: Sodium Chloride 0.9% 10 ML Syringe FLUSH PRN (22:06)
[2023-12-01 22:07] LABS: BASE EXCESS VENOUS 0.8 (-2.0-3.0); BICARBONATE,VENOUS 28 mEQ/mL (22-28); PCO2 VENOUS 50 mmHG (41-51); PH,VENOUS 7.35 (7.31-7.41)
[2023-12-01] MEDS: cefTRIAXone 1 GM in Sodium Chloride 0.9% 50 ML IV STA (22:09)
[2023-12-01] MEDS: Albuterol/Ipratropium 3.0-0.5 MG/3 ML Neb Soln NEB STA (22:11)
[2023-12-01] MEDS: Acetaminophen 500 MG Tab PO STA (22:14)
[2023-12-01 22:16] LABS: A/G RATIO 1.3 (0.9-1.6); ALBUMIN 3.8 g/dL (3.4-5.0); BILIRUBIN TOTAL 0.6 mg/dL (0.2-1.0); CALCIUM 8.4 mg/dL (8.5-10.1); CARBON DIOXIDE,CO2 24.6 mmol/L (21.0-32.0); EST CRCL DRUG DOSING (CG) 68.85 mL/min; POTASSIUM,K 4.5 mmol/L (3.5-5.1); PROTEIN TOTAL,TP 6.7 g/dL (6.4-8.2)
[2023-12-01 22:18] LABS: CORONAVIRUS COVID-19 NAA NEGATIVE (NEGATIVE); INFLUENZA A NAA POSITIVE (NEGATIVE); INFLUENZA B NAA NEGATIVE (NEGATIVE)
[2023-12-01 22:26] LABS: PO2 VENOUS < 30 mmHG (35-45)
[2023-12-01 22:35] LABS: LACTIC ACID 2.7 mmol/L (0.4-2.0)
[2023-12-01] MEDS: Sodium Chloride 0.9% 1,000 ML IV STA ×2 (23:22→23:46)
[2023-12-01] MEDS: Oseltamivir 75 MG Cap PO STA (23:22)
[2023-12-01] MEDS: Azithromycin 500 MG in Sodium Chloride 0.9% 250 ML IV STA (23:22)
[2023-12-02] MEDS ORDERED: Ondansetron 4 MG/2 ML SDV IVPUSH PRN (08:23)
[2023-12-02 09:00] LABS: BASOPHILS ABSOLUTE AUTO 0.03 K/uL (0.00-0.20); BASOPHILS PERCENT AUTO 0.2 % (0.0-1.0); HEMATOCRIT 45.2 % (42.0-52.0); HEMOGLOBIN 15.4 g/dL (14.0-18.0); IMMATURE GRAN ABSOLUTE AUTO 0.13 K/uL (0.00-0.05); IMMATURE GRAN PERCENT AUTO 0.7 % (0.0-0.4); LYMPHOCYTES PERCENT AUTO 4.2 % (24.0-44.0); MEAN CORPUSCULAR HEMOGLOBIN 31.8 pg (28.0-32.0); MEAN CORPUSCULAR HGB CONC 34.1 g/dL (32.0-36.0); MEAN CORPUSCULAR VOLUME 93.4 fL (83.0-99.0); MEAN PLATELET VOLUME 10.8 fL (9.4-12.4); MONOCYTES ABSOLUTE AUTO 0.35 K/uL (0.00-0.80); MONOCYTES PERCENT AUTO 1.8 % (0.0-8.0); NEUTROPHILS ABSOLUTE AUTO 17.94 K/uL (1.80-7.70); NEUTROPHILS PERCENT AUTO 93.1 % (41.0-71.0); PLATELET COUNT,PLT 122 K/uL (150-400); RED BLOOD CELL COUNT 4.84 M/uL (4.52-5.90); WHITE BLOOD CELL COUNT,WBC 19.25 K/uL (3.9-11.3)
[2023-12-02 09:22] LABS: CALCIUM 7.9 mg/dL (8.5-10.1); CARBON DIOXIDE,CO2 24.7 mmol/L (21.0-32.0); CREATININE 0.9 mg/dL (0.8-1.3); EST CRCL DRUG DOSING (CG) 76.5 mL/min; POTASSIUM,K 4.2 mmol/L (3.5-5.1)
[2023-12-02] MEDS: Sodium Chloride 0.9% 1,000 ML IV SCH (09:47)
[2023-12-02] MEDS: methylPREDNISolone Sodium Succinate 40 MG/1 ML SDV IVPUSH SCH (09:48)
[2023-12-02] MEDS: Oseltamivir 75 MG Cap PO SCH (09:48)
[2023-12-02] MEDS: Albuterol/Ipratropium 3.0-0.5 MG/3 ML Neb Soln NEB PRN (11:09)
[2023-12-02] MEDS: Gabapentin 300 MG Cap PO SCH (14:10)
[2023-12-02] MEDS: Albuterol/Ipratropium 3.0-0.5 MG/3 ML Neb Soln NEB SCH (15:15)
[2023-12-02] MEDS: LORazepam 0.5 MG Tab PO SCH (20:58)
[2023-12-02] MEDS: Formoterol/Mometasone 200-5 MCG 8.8 GM Inhaler INH SCH (20:58)
[2023-12-02] MEDS: Azithromycin 500 MG in Sodium Chloride 0.9% 250 ML IV SCH (22:00)
[2023-12-02] MEDS: cefTRIAXone 1 GM in Sodium Chloride 0.9% 50 ML IV SCH (23:30)
[2023-12-03 05:31] LABS: BASOPHILS ABSOLUTE AUTO 0.02 K/uL (0.00-0.20); BASOPHILS PERCENT AUTO 0.1 % (0.0-1.0); HEMATOCRIT 42.3 % (42.0-52.0); HEMOGLOBIN 14.6 g/dL (14.0-18.0); IMMATURE GRAN ABSOLUTE AUTO 0.21 K/uL (0.00-0.05); IMMATURE GRAN PERCENT AUTO 0.9 % (0.0-0.4); LYMPHOCYTES ABSOLUTE AUTO 1.13 K/uL (1.00-4.80); LYMPHOCYTES PERCENT AUTO 5.1 % (24.0-44.0); MEAN CORPUSCULAR HEMOGLOBIN 32.2 pg (28.0-32.0); MEAN CORPUSCULAR HGB CONC 34.5 g/dL (32.0-36.0); MEAN CORPUSCULAR VOLUME 93.4 fL (83.0-99.0); MEAN PLATELET VOLUME 11.4 fL (9.4-12.4); MONOCYTES ABSOLUTE AUTO 0.58 K/uL (0.00-0.80); MONOCYTES PERCENT AUTO 2.6 % (0.0-8.0); NEUTROPHILS ABSOLUTE AUTO 20.23 K/uL (1.80-7.70); NEUTROPHILS PERCENT AUTO 91.3 % (41.0-71.0); PLATELET COUNT,PLT 129 K/uL (150-400); RED BLOOD CELL COUNT 4.53 M/uL (4.52-5.90); WHITE BLOOD CELL COUNT,WBC 22.17 K/uL (3.9-11.3)
[2023-12-03 05:54] LABS: CALCIUM 8.6 mg/dL (8.5-10.1); CARBON DIOXIDE,CO2 27.9 mmol/L (21.0-32.0); CREATININE 0.9 mg/dL (0.8-1.3); EST CRCL DRUG DOSING (CG) 76.5 mL/min; POTASSIUM,K 4.3 mmol/L (3.5-5.1)
[2023-12-03 08:07] LABS: BORDETELLA PARAPERT IS1001 Not Detected (Not Detected)
[2023-12-03] MEDS: cefTRIAXone 2 GM in Sodium Chloride 0.9% 50 ML IV SCH (09:14)
[2023-12-03] MEDS: Enoxaparin 40 MG/0.4 ML Syringe SUBCUT SCH (09:15)
[2023-12-03] MEDS: Acetaminophen 325 MG Tab PO PRN (21:20)
[2023-12-04] MEDS: Benzonatate 100 MG Cap PO PRN (02:51)
[2023-12-04 06:28] LABS: BASOPHILS ABSOLUTE AUTO 0.02 K/uL (0.00-0.20); BASOPHILS PERCENT AUTO 0.1 % (0.0-1.0); HEMOGLOBIN 14.3 g/dL (14.0-18.0); IMMATURE GRAN ABSOLUTE AUTO 0.15 K/uL (0.00-0.05); IMMATURE GRAN PERCENT AUTO 0.8 % (0.0-0.4); LYMPHOCYTES ABSOLUTE AUTO 1.05 K/uL (1.00-4.80); LYMPHOCYTES PERCENT AUTO 5.8 % (24.0-44.0); MEAN CORPUSCULAR HEMOGLOBIN 32.1 pg (28.0-32.0); MEAN CORPUSCULAR VOLUME 94.2 fL (83.0-99.0); MEAN PLATELET VOLUME 11.3 fL (9.4-12.4); MONOCYTES ABSOLUTE AUTO 0.62 K/uL (0.00-0.80); MONOCYTES PERCENT AUTO 3.4 % (0.0-8.0); NEUTROPHILS ABSOLUTE AUTO 16.34 K/uL (1.80-7.70); NEUTROPHILS PERCENT AUTO 89.9 % (41.0-71.0); PLATELET COUNT,PLT 139 K/uL (150-400); RED BLOOD CELL COUNT 4.46 M/uL (4.52-5.90); WHITE BLOOD CELL COUNT,WBC 18.18 K/uL (3.9-11.3)
[2023-12-04 07:05] LABS: CALCIUM 8.5 mg/dL (8.5-10.1); CARBON DIOXIDE,CO2 27.1 mmol/L (21.0-32.0); EST CRCL DRUG DOSING (CG) 68.85 mL/min; POTASSIUM,K 4.7 mmol/L (3.5-5.1)
[2023-12-04] MEDS: methylPREDNISolone Sodium Succinate 40 MG/1 ML SDV IVPUSH SCH (08:51)
[2023-12-05 06:05] LABS: BASOPHILS ABSOLUTE AUTO 0.02 K/uL (0.00-0.20); BASOPHILS PERCENT AUTO 0.2 % (0.0-1.0); HEMATOCRIT 42.4 % (42.0-52.0); IMMATURE GRAN ABSOLUTE AUTO 0.11 K/uL (0.00-0.05); IMMATURE GRAN PERCENT AUTO 0.9 % (0.0-0.4); LYMPHOCYTES ABSOLUTE AUTO 1.09 K/uL (1.00-4.80); LYMPHOCYTES PERCENT AUTO 9.3 % (24.0-44.0); MEAN CORPUSCULAR HEMOGLOBIN 31.4 pg (28.0-32.0); MEAN CORPUSCULAR VOLUME 95.1 fL (83.0-99.0); MEAN PLATELET VOLUME 11.4 fL (9.4-12.4); MONOCYTES PERCENT AUTO 5.9 % (0.0-8.0); NEUTROPHILS ABSOLUTE AUTO 9.86 K/uL (1.80-7.70); NEUTROPHILS PERCENT AUTO 83.7 % (41.0-71.0); PLATELET COUNT,PLT 135 K/uL (150-400); RED BLOOD CELL COUNT 4.46 M/uL (4.52-5.90); WHITE BLOOD CELL COUNT,WBC 11.78 K/uL (3.9-11.3)
[2023-12-05 06:37] LABS: CALCIUM 8.3 mg/dL (8.5-10.1); CARBON DIOXIDE,CO2 27.7 mmol/L (21.0-32.0); EST CRCL DRUG DOSING (CG) 68.85 mL/min; POTASSIUM,K 4.3 mmol/L (3.5-5.1)
[2023-12-05] MEDS: Gabapentin 300 MG Cap PO SCH (21:01)
[2023-12-06 06:30] LABS: BASOPHILS ABSOLUTE AUTO 0.04 K/uL (0.00-0.20); BASOPHILS PERCENT AUTO 0.4 % (0.0-1.0); HEMATOCRIT 41.6 % (42.0-52.0); HEMOGLOBIN 14.3 g/dL (14.0-18.0); IMMATURE GRAN ABSOLUTE AUTO 0.17 K/uL (0.00-0.05); IMMATURE GRAN PERCENT AUTO 1.8 % (0.0-0.4); LYMPHOCYTES ABSOLUTE AUTO 1.13 K/uL (1.00-4.80); MEAN CORPUSCULAR HEMOGLOBIN 32.1 pg (28.0-32.0); MEAN CORPUSCULAR HGB CONC 34.4 g/dL (32.0-36.0); MEAN CORPUSCULAR VOLUME 93.5 fL (83.0-99.0); MEAN PLATELET VOLUME 11.2 fL (9.4-12.4); MONOCYTES ABSOLUTE AUTO 0.52 K/uL (0.00-0.80); MONOCYTES PERCENT AUTO 5.5 % (0.0-8.0); NEUTROPHILS ABSOLUTE AUTO 7.53 K/uL (1.80-7.70); NEUTROPHILS PERCENT AUTO 80.3 % (41.0-71.0); PLATELET COUNT,PLT 147 K/uL (150-400); RED BLOOD CELL COUNT 4.45 M/uL (4.52-5.90); WHITE BLOOD CELL COUNT,WBC 9.39 K/uL (3.9-11.3)
[2023-12-06 06:48] LABS: CALCIUM 8.3 mg/dL (8.5-10.1); CARBON DIOXIDE,CO2 32.5 mmol/L (21.0-32.0); CREATININE 0.8 mg/dL (0.8-1.3); EST CRCL DRUG DOSING (CG) 86.07 mL/min; POTASSIUM,K 3.7 mmol/L (3.5-5.1)
[2023-12-07 07:15] LABS: BASOPHILS ABSOLUTE AUTO 0.02 K/uL (0.00-0.20); BASOPHILS PERCENT AUTO 0.2 % (0.0-1.0); HEMATOCRIT 42.8 % (42.0-52.0); HEMOGLOBIN 14.3 g/dL (14.0-18.0); IMMATURE GRAN ABSOLUTE AUTO 0.24 K/uL (0.00-0.05); IMMATURE GRAN PERCENT AUTO 2.2 % (0.0-0.4); LYMPHOCYTES ABSOLUTE AUTO 0.86 K/uL (1.00-4.80); LYMPHOCYTES PERCENT AUTO 7.8 % (24.0-44.0); MEAN CORPUSCULAR HEMOGLOBIN 31.2 pg (28.0-32.0); MEAN CORPUSCULAR HGB CONC 33.4 g/dL (32.0-36.0); MEAN CORPUSCULAR VOLUME 93.2 fL (83.0-99.0); MEAN PLATELET VOLUME 11.4 fL (9.4-12.4); MONOCYTES ABSOLUTE AUTO 0.72 K/uL (0.00-0.80); MONOCYTES PERCENT AUTO 6.6 % (0.0-8.0); NEUTROPHILS ABSOLUTE AUTO 9.12 K/uL (1.80-7.70); NEUTROPHILS PERCENT AUTO 83.2 % (41.0-71.0); PLATELET COUNT,PLT 190 K/uL (150-400); RED BLOOD CELL COUNT 4.59 M/uL (4.52-5.90); WHITE BLOOD CELL COUNT,WBC 10.96 K/uL (3.9-11.3)
[2023-12-07 07:33] LABS: CALCIUM 9.1 mg/dL (8.5-10.1); CREATININE 0.8 mg/dL (0.8-1.3); EST CRCL DRUG DOSING (CG) 86.07 mL/min; POTASSIUM,K 3.7 mmol/L (3.5-5.1)
[2023-12-07 14:47] LABS: BASE EXCESS ARTERIAL 6.2 (-2.0-3.0); BICARBONATE,ARTERIAL 31 mEq/L (22-26); PCO2 ARTERIAL 45 mmHG (35-45); PO2 ARTERIAL 53 mmHG (80-105)
[2023-12-08 08:38] LABS: BASOPHILS ABSOLUTE AUTO 0.02 K/uL (0.00-0.20); BASOPHILS PERCENT AUTO 0.2 % (0.0-1.0); HEMATOCRIT 39.8 % (42.0-52.0); HEMOGLOBIN 13.4 g/dL (14.0-18.0); IMMATURE GRAN ABSOLUTE AUTO 0.25 K/uL (0.00-0.05); IMMATURE GRAN PERCENT AUTO 2.7 % (0.0-0.4); LYMPHOCYTES ABSOLUTE AUTO 1.11 K/uL (1.00-4.80); LYMPHOCYTES PERCENT AUTO 12.2 % (24.0-44.0); MEAN CORPUSCULAR HEMOGLOBIN 31.6 pg (28.0-32.0); MEAN CORPUSCULAR HGB CONC 33.7 g/dL (32.0-36.0); MEAN CORPUSCULAR VOLUME 93.9 fL (83.0-99.0); MEAN PLATELET VOLUME 11.3 fL (9.4-12.4); MONOCYTES ABSOLUTE AUTO 0.54 K/uL (0.00-0.80); MONOCYTES PERCENT AUTO 5.9 % (0.0-8.0); NEUTROPHILS ABSOLUTE AUTO 7.21 K/uL (1.80-7.70); PLATELET COUNT,PLT 211 K/uL (150-400); RED BLOOD CELL COUNT 4.24 M/uL (4.52-5.90); WHITE BLOOD CELL COUNT,WBC 9.13 K/uL (3.9-11.3)
[2023-12-08 08:48] LABS: CALCIUM 9.1 mg/dL (8.5-10.1); CARBON DIOXIDE,CO2 31.6 mmol/L (21.0-32.0); CREATININE 0.8 mg/dL (0.8-1.3); EST CRCL DRUG DOSING (CG) 86.07 mL/min; MAGNESIUM 1.7 mg/dL (1.8-2.4); POTASSIUM,K 3.7 mmol/L (3.5-5.1)
[2023-12-09 05:56] LABS: BASOPHILS ABSOLUTE AUTO 0.02 K/uL (0.00-0.20); BASOPHILS PERCENT AUTO 0.3 % (0.0-1.0); HEMOGLOBIN 13.4 g/dL (14.0-18.0); IMMATURE GRAN PERCENT AUTO 4.2 % (0.0-0.4); LYMPHOCYTES PERCENT AUTO 15.4 % (24.0-44.0); MEAN CORPUSCULAR HEMOGLOBIN 31.3 pg (28.0-32.0); MEAN CORPUSCULAR HGB CONC 33.5 g/dL (32.0-36.0); MEAN CORPUSCULAR VOLUME 93.5 fL (83.0-99.0); MEAN PLATELET VOLUME 11.3 fL (9.4-12.4); MONOCYTES ABSOLUTE AUTO 0.54 K/uL (0.00-0.80); MONOCYTES PERCENT AUTO 7.6 % (0.0-8.0); NEUTROPHILS ABSOLUTE AUTO 5.17 K/uL (1.80-7.70); NEUTROPHILS PERCENT AUTO 72.5 % (41.0-71.0); PLATELET COUNT,PLT 216 K/uL (150-400); RED BLOOD CELL COUNT 4.28 M/uL (4.52-5.90); WHITE BLOOD CELL COUNT,WBC 7.13 K/uL (3.9-11.3)
[2023-12-09 06:17] LABS: CALCIUM 8.7 mg/dL (8.5-10.1); CARBON DIOXIDE,CO2 30.3 mmol/L (21.0-32.0); CREATININE 0.7 mg/dL (0.8-1.3); EST CRCL DRUG DOSING (CG) 98.36 mL/min; MAGNESIUM 1.9 mg/dL (1.8-2.4); POTASSIUM,K 3.9 mmol/L (3.5-5.1)
[2023-12-09] MEDS: predniSONE 20 MG Tab PO SCH (08:15)
[2023-12-10 06:28] LABS: BASOPHILS ABSOLUTE AUTO 0.03 K/uL (0.00-0.20); BASOPHILS PERCENT AUTO 0.3 % (0.0-1.0); EOSINOPHILS ABSOLUTE AUTO 0.01 K/uL (0.00-0.45); EOSINOPHILS PERCENT AUTO 0.1 % (0.0-6.0); HEMATOCRIT 40.5 % (42.0-52.0); HEMOGLOBIN 13.6 g/dL (14.0-18.0); IMMATURE GRAN ABSOLUTE AUTO 0.25 K/uL (0.00-0.05); IMMATURE GRAN PERCENT AUTO 2.9 % (0.0-0.4); LYMPHOCYTES ABSOLUTE AUTO 1.56 K/uL (1.00-4.80); LYMPHOCYTES PERCENT AUTO 17.8 % (24.0-44.0); MEAN CORPUSCULAR HEMOGLOBIN 31.4 pg (28.0-32.0); MEAN CORPUSCULAR HGB CONC 33.6 g/dL (32.0-36.0); MEAN CORPUSCULAR VOLUME 93.5 fL (83.0-99.0); MEAN PLATELET VOLUME 11.1 fL (9.4-12.4); MONOCYTES ABSOLUTE AUTO 0.68 K/uL (0.00-0.80); MONOCYTES PERCENT AUTO 7.8 % (0.0-8.0); NEUTROPHILS ABSOLUTE AUTO 6.21 K/uL (1.80-7.70); NEUTROPHILS PERCENT AUTO 71.1 % (41.0-71.0); PLATELET COUNT,PLT 246 K/uL (150-400); RED BLOOD CELL COUNT 4.33 M/uL (4.52-5.90); WHITE BLOOD CELL COUNT,WBC 8.74 K/uL (3.9-11.3)
[2023-12-10 06:45] LABS: CALCIUM 8.9 mg/dL (8.5-10.1); CREATININE 0.7 mg/dL (0.8-1.3); EST CRCL DRUG DOSING (CG) 98.36 mL/min; MAGNESIUM 1.7 mg/dL (1.8-2.4); POTASSIUM,K 3.6 mmol/L (3.5-5.1)
[2023-12-10] MEDS: Magnesium Sulfate/Water Premix 2 GM in Premix Bag 1 BAG IV ONE (09:09)
[2023-12-10] MEDS: Albuterol/Ipratropium 3.0-0.5 MG/3 ML Neb Soln NEB PRN (22:06)
[2023-12-11 06:33] LABS: BASOPHILS ABSOLUTE AUTO 0.02 K/uL (0.00-0.20); BASOPHILS PERCENT AUTO 0.2 % (0.0-1.0); EOSINOPHILS ABSOLUTE AUTO 0.03 K/uL (0.00-0.45); EOSINOPHILS PERCENT AUTO 0.3 % (0.0-6.0); HEMATOCRIT 41.1 % (42.0-52.0); IMMATURE GRAN PERCENT AUTO 2.3 % (0.0-0.4); LYMPHOCYTES ABSOLUTE AUTO 1.71 K/uL (1.00-4.80); LYMPHOCYTES PERCENT AUTO 19.5 % (24.0-44.0); MEAN CORPUSCULAR HEMOGLOBIN 31.7 pg (28.0-32.0); MEAN CORPUSCULAR HGB CONC 34.1 g/dL (32.0-36.0); MEAN CORPUSCULAR VOLUME 93.2 fL (83.0-99.0); MONOCYTES ABSOLUTE AUTO 0.73 K/uL (0.00-0.80); MONOCYTES PERCENT AUTO 8.3 % (0.0-8.0); NEUTROPHILS ABSOLUTE AUTO 6.06 K/uL (1.80-7.70); NEUTROPHILS PERCENT AUTO 69.4 % (41.0-71.0); PLATELET COUNT,PLT 250 K/uL (150-400); RED BLOOD CELL COUNT 4.41 M/uL (4.52-5.90); WHITE BLOOD CELL COUNT,WBC 8.75 K/uL (3.9-11.3)
[2023-12-11 06:53] LABS: CALCIUM 8.2 mg/dL (8.5-10.1); CARBON DIOXIDE,CO2 31.3 mmol/L (21.0-32.0); CREATININE 0.8 mg/dL (0.8-1.3); EST CRCL DRUG DOSING (CG) 86.07 mL/min; POTASSIUM,K 3.7 mmol/L (3.5-5.1)
== END 2023-12-11 15:55 | disposition home health service (06) | DRG 871 ==
LOC: MW.ED 21:07 → MW.MS 23:46
PROVIDERS: ADMIT Internal Medicine; ATTEND Internal Medicine
DX: A41.9 Sepsis, unspecified organism (principal); A41.89 Other specified sepsis; J18.9 Pneumonia, unspecified organism; J11.1 Influenza due to unidentified influenza virus with other respiratory manifestations; J10.08 Influenza due to other identified influenza virus with other specified pneumonia; R79.89 Other specified abnormal findings of blood chemistry; J44.9 Chronic obstructive pulmonary disease, unspecified; Z79.51 Long term (current) use of inhaled steroids; Z75.8 Other problems related to medical facilities and other health care; J96.21 Acute and chronic respiratory failure with hypoxia; J44.0 Chronic obstructive pulmonary disease with (acute) lower respiratory infection; J44.1 Chronic obstructive pulmonary disease with (acute) exacerbation; R65.20 Severe sepsis without septic shock; D72.829 Elevated white blood cell count, unspecified; F41.9 Anxiety disorder, unspecified; G62.9 Polyneuropathy, unspecified; D69.6 Thrombocytopenia, unspecified; F17.210 Nicotine dependence, cigarettes, uncomplicated; Z86.718 Personal history of other venous thrombosis and embolism; Z79.899 Other long term (current) drug therapy
CPT/HCPCS: 0240U; 36415; 36600; 71045; 71046; 80048; 80053; 82803; 83605; 83690; 83735; 83880; 84484; 85025; 85610; 87040; 87486; 87581; 87633; 87641; 93005; 94640; 94667; 94668; 96365; 96367; 96375; 97110; 97161; 97530; 99285; 93010; 99223; 99231; 99232; 99238; A9270-GY; J0456; J0696; J1650; J2919; J3475; J3490; J7030; J7050; J7620-GY